=== PATIENT | male | born 1955 | race Caucasian/White ===

== ENCOUNTER → 2019-04-14 | Outpatient (CLI) | payer MEDICARE, BC ==
[~2019-04-14] MED LIST: ACYC1CAP20 PO; BACT800T5 PO; D3 H10002 PO; IMBR1CAP PO; PRAV40TA2 PO; SYNT150T PO; VENTAER INH
--- NOTE | 2019-04-14 09:15 | REP ---
LOW DOSE LUNG SCREENING CT: Low dose lung screening CT performed in the axial plane. No prior study for comparison. There are scattered interstitial fibrotic changes bilaterally. A 1 cm bulla is seen in the left lower lobe. A calcified granuloma is seen inferiorly and medially in the right lower lobe measuring 6 mm. No suspicious nodule or opacity seen bilaterally. There is an insignificant 2 mm subpleural nodular density in the right lower lobe on image 57. Atherosclerotic calcifications are noted of the thoracic aorta without aneurysm. There is no evidence of cardiomegaly or significant mediastinal contour abnormality. IMPRESSION: Lung RADS category 1, negative low dose lung screening CT. No suspicious nodule is seen. Yearly screening lung CT recommended. Electronically Signed by Freddy Monterroso MD 04/15/2019 08:08 P
== END ==
LOC: M RAD 07:20
PROVIDERS: ATTEND Internal Medicine Hematology & Oncology
DX: Z12.2 Encounter for screening for malignant neoplasm of respiratory organs (principal); Z87.891 Personal history of nicotine dependence; J84.10 Pulmonary fibrosis, unspecified; I70.0 Atherosclerosis of aorta; R91.8 Other nonspecific abnormal finding of lung field

== ENCOUNTER → 2019-09-18 | Outpatient (CLI) | payer MEDICARE, BC ==
--- NOTE | 2019-09-18 12:45 | REP ---
ULTRASOUND BILATERAL SUPRACLAVICULAR REGION: Real-time sonographic evaluation of the soft tissues of supraclavicular regions performed bilaterally. Multiple normal sized lymph nodes are seen in this region. Largest on the right measures 1.0 x 0.4 x 1.1 cm. Largest on the left measured 1.4 x 0.7 x 0.4 cm and 1.9 x 0.5 x 0.7 cm. IMPRESSION: Normal sized lymph nodes in the supraclavicular regions bilaterally. Electronically Signed by Freddy Monterroso MD 09/18/2019 05:43 P
== END ==
LOC: M RAD 09:02
PROVIDERS: ATTEND Family Medicine
DX: R59.0 Localized enlarged lymph nodes (principal); F17.210 Nicotine dependence, cigarettes, uncomplicated

== ENCOUNTER 2019-10-10 11:22 | Inpatient (IN) | payer MEDICARE, BC ==
[~2019-10-10] VITALS: Ht 165.1 cm; Wt 65.8 kg
[~2019-10-10 11:22] MED LIST changes: +AMLO10TA5 PO; +ASPI81TA85 PO; +LEVO137T2 PO; +OXYB10TA23 PO
[2019-10-10 15:00] VITALS: BP 143/67
--- NOTE | 2019-10-10 15:35 | HPEPDOC ---
General Date of Admission Oct 10, 2019 at 11:22 Date of Service: Oct 10, 2019 Chief Complaint The patient is a 64-year-old male admitted with a reason for visit of Left Upper Miguel Pneumonia. Source: Patient, Family, Old records Exam Limitations: No limitations Timing/Duration: Resolved prior to arrival Associated Symptoms: Chest Pain (Costochondritis ) History of Present Illness Mr. Shaikh is a 64 year old male transferred from [facility] with a Dx of WANDA pnueumonia. Mr. Shaikh has a PMHx which includes DMII, Bladder Ca., CLL, Hypertension, Anemia, Hypothyroidism, COPD, Dyslipidemia, Binge eating, Anorexia, Bulimia. History is obtained from both the pt and his . Pt isn't sure why he has been transferred here; he and his believe he has improved significantly and that he was going home today. 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 Pt also reported CP caused by coughing very forcefully and frequently. He has denied all symptoms of fever/chills/malaise. He is currently on 2L NC in the room; however he does not use oxygen at home. Pt was diagnosed with pneumonia on Sunday superimposed on a Hx of CLL, currently being treated with Imbruvica. Pt went to the ED in [place] due to worsening SOB, non-productive cough and trouble breathing. He was Dx with pneumonia of WANDA and treated with Zosyn, Vancomycin and Azithromycin to completion. It appears his Sx largely resolved over the week. His lactic acid had returned to normal limits and pt reported hat he felt fine. Blood cultures at [place] were negative. He reportedly spiked a fever this morning which concerned medical staff and precipitated the transfer here. Pt is has been treated for CLL with Imbruvica. His new oncologist is Dr. Kruse. One of the main side effects of this medication is fever. He and his reported that his oncologist approved him getting a dose of the medication Sunday of this week; next treatment is due Oct.17. 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 He reported being asymptomatic at the time fevers were recorded/reported. Home Medications Scheduled Acyclovir (Acyclovir) 200 Mg Capsule, 200 MG PO BID, (Reported) Amlodipine Besylate (Amlodipine Besylate) 10 Mg Tablet, 10 MG PO DAILY, (Reported) Aspirin (Aspir 81) 81 Mg Tablet.dr, 81 MG PO DAILY, (Reported) Azithromycin (Azithromycin) 500 Mg Vial.port, 500 MG IV DAILY, (Reported) RECEIVED AT [facility] Cholecalciferol (Vitamin D3) (Vitamin D3) 1,000 Unit Capsule, 1,000 UNIT PO DAILY, (Reported) Enoxaparin Sodium (Enoxaparin Sodium) 40 Mg/0.4 Ml Syringe, 40 MG SC DAILY, (Reported) RECEIVED AT [facility] Ibrutinib (Imbruvica) 140 Mg Capsule, 3 CAP PO DAILY Insulin Human Regular (Humulin R) 100 Unit/1 Ml Vial, 1 DOSE SC ACHS, (Reported) PER SLIDING SCALE, STARTED AT [facility] Levothyroxine Sodium (Levothyroxine Sodium) 137 Mcg Tablet, 137 MCG PO DAILY, (Reported) Oxybutynin Chloride (Oxybutynin Chloride ER) 10 Mg Tab.er.24, 10 MG PO DAILY, (Reported) Piperacillin Sodium/Tazobactam (Zosyn 3.375 Gram Vial) 3.375 Gm Vial, 3.375 GM IV Q6H, (Reported) RECEIVED AT [facility] Pravastatin Sodium (Pravastatin Sodium) 40 Mg Tablet, 40 MG PO DAILY, (Reported) PT TAKES IN THE MORNING, BUT WAS RECEIVING QHS AT [place] Vancomycin HCl in 5 % Dextrose (Vancomycin 1 Gram/250 ml-D5w) 1 Gm/250 Ml Plast..bag, 1 GM IV DAILY, (Reported) RECEIVED AT [facility] Scheduled PRN Acetaminophen (Acetaminophen) 500 Mg Tablet, 500 MG PO QID PRN for PAIN, (Reported) Albuterol Sulfate (Ventolin Hfa) 18 Gm Hfa.aer.ad, 2 PUFF INH Q4H PRN for SHORTNESS OF BREATH, (Reported) Allergies Coded Allergies: ciprofloxacin (Verified Allergy, Intermediate, SWELLING, 10/10/19) latex (Verified Allergy, Intermediate, RASH, 10/10/19) Past Medical History Medical History DMII Bladder Ca. CLL Hypertension Anemia Hypothyroidism COPD Dyslipidemia Binge eating Anorexia Bulimia. Surgical History Abdominal hernia repair Back surgery Colonoscopy Cystoscopy Penile implant Social History * Smoker: current smoker Alcohol: Denies Drugs: denies A-FIB/CHADSVASC A-FIB History Current/History of A-Fib/PAF?: No Current PO Anticoag Therapy: No Review of Systems Constitutional: Denies: Chills, Fever, Night Sweats Eyes: Denies: Pain ENT: Denies: Head Aches Skin: Denies: Rash Pulmonary: Reports: Cough, Pleuritic Chest Pain; Denies: Dyspnea Cardiovascular: Denies: Chest Pain, Palpitations, Orthopnea, Paroxysmal Noc. Dyspnea, Lt Headedness Gastrointestinal: Denies: Nausea, Vomiting, Abdominal Pain, Diarrhea Genitourinary: Denies: Dysuria, Retention Hematologic: Denies: Bruising Musculoskeletal: Denies: Neck Pain, Back Pain, Joint Pain, Muscle Pain, Spasms Neurological: Denies: Weakness, Numbness Psych: Reports: Mood Normal Physical Examination General Exam: Positive: Alert, Cooperative, No Acute Distress Eye Exam: Positive: PERRLA, Conjunctiva & lids normal, EOMI; Negative: Sclera icteric ENT Exam: Positive: Atraumatic, Mucous membr. moist/pink, Pharynx Normal, Tongue Midline Neck Exam: Positive: Supple; Negative: JVD, thyromegaly Chest Exam: Positive: Clear to auscultation, Normal air movement, Wheezing (mild, diffuse ), Other (CP reproduced with palpation, left chest below the nipple ) Heart Exam: Positive: Rate Normal, Regular Rhythm, Normal S1, Normal S2; Negative: Murmurs, Rubs Telemetry: Positive: No significant arrhythmia Abdomen Exam: Positive: Normal bowel sounds, Soft; Negative: Tenderness, Hepatospenomegaly Extremity Exam: Positive: Normal pulses; Negative: Clubbing, Cyanosis, Edema, Tenderness, Swelling Skin Exam: Positive: Nl turgor and temperature, Rash (Miliaria over the back ) Neuro Exam: Positive: Normal Speech, Strength at 5/5 X4 ext, Cranial Nerves 3- 12 NL Psych Exam: Positive: Mood NL Vital Signs see below Assessment/Plan Pneumonia, WANDA, persistent cough - pt is afebrile and hemodynamically stable, physical exam largely unremarkable - treated to completion with Zosyn, Azithromycin, Vancomycin at [facility] - reassess with CT chest w/o contrast - CBC, CMP, PT, Blood cultures x 2, Procalcitonin, Lactic acid, Mg - pending - Consider broad spectrum abx warranted - Currently on 2L NC; add Guaifenesin (push PO fluids) to loosen mucus - PRN and scheduled DuoNebs CLL - Currently being treated with Imbruvica (ON HOLD) - Next treatment is due Oct 17 - Further management per oputpt oncology, Dr. Hartman - Prophy Acyclovir 200mg on hold HTN - continue Amlodipine DMII - ISS with FBS achs - consistent carbs diet Hypothyroidism - Continue Levothyroxine Urinary retention - Continue Oxybutynin Dyslipidemia - Continue Pravastatin Plan / VTE VTE Prophylaxis Ordered?: Yes (Lovenox ) Attending Note Attending Note I have reviewed the documentation and assessed the patient independently. I have made necessary revisions as needed. I agree with the findings, assessment and plan stated above. - Patient was seen and examined at the bedside; is not in any respiratory distress - They are hemodynamically stable and afebrile - Patient was reported to have required supplement oxygen, however is saturating at 93% on room air currently - Auscultation with bilateral lower lobe crackles appreciated - Lab work has revealed no lactic acidosis, mild leukopenia - CT scan was completed today and compared again CT chest from 10/07/2019; currently does reveal an increase in infiltrate at left upper lobe and increase in bilateral effusions - Will start the patient on oral cefdinir and azithromycin - Will provide single dose of furosemide IV GREGG OCHOA PA-C Oct 10, 2019 15:35 MOHIT OQUENDO MD Oct 10, 2019 18:15
[2019-10-10 16:00] VITALS: BP 129/81
[2019-10-10] MEDS ORDERED: VITA100054 PO (16:14)
[2019-10-10] MEDS ORDERED: ACET-683 PO (16:14)
[2019-10-10] MEDS ORDERED: ENOX40IN3 SC (16:20)
[2019-10-10] MEDS ORDERED: ZOSY3INJ2 IV (16:30)
[2019-10-10] MEDS ORDERED: AZIT500I IV (16:30)
[2019-10-10] MEDS ORDERED: VANC1INJ IV (16:30)
[2019-10-10] MEDS ORDERED: INSURSD SC (16:30)
[2019-10-10] MEDS ORDERED: NICOTINE 21MG/24HR 1 EA TRANSDERMAL TD PRN (16:45)
[2019-10-10] MEDS ORDERED: ALBUTEROL 90 MCG/ACT 8GM HFA INHALER INH PRN (16:45)
[2019-10-10] MEDS ORDERED: GLUCAGON FOR INJ 1 MG VIAL (J1610) SC PRN (16:45)
[2019-10-10] MEDS ORDERED: GLUCOSE 4 GM CHEW TABLET PO PRN (16:45)
[2019-10-10] MEDS ORDERED: DEXTROSE 50% 50 ML SYRINGE IV PRN (16:45)
[2019-10-10] MEDS ORDERED: ACETAMINOPHEN 500 MG TAB PO PRN (16:45)
[2019-10-10 16:46] LABS: INR 1.16; PROTHROMBIN TIME 14.5 SECONDS (11.8-14.0)
--- NOTE | 2019-10-10 16:51 | REP ---
CT of the chest without IV contrast: Comparison is the chest CT dated 04/14/2019. There is a large right upper lobe infiltrate in the apicoposterior segment. There are bilateral pleural effusions. There is compression atelectasis of the lower lobes bilaterally from the pleural effusions. There are no nodules or masses. There are scattered bulla throughout the lung roque bilaterally. There is no mediastinal or axillary lymphadenopathy. In the absence of IV contrast the study is insensitive for hilar adenopathy. The unenhanced thoracic aorta is unremarkable. Cardiac size is normal. There is no pericardial effusion. The visualized upper abdominal contents are unremarkable. Impression: Large left upper lobe infiltrate in the apicoposterior segment. Bilateral pleural effusions with compression atelectasis of the adjacent lower lobe lung roque. Electronically Signed by Freddy Churchill MD 10/10/2019 04:42 P
[2019-10-10 16:54] LABS: ALBUMIN 2.1 GM/DL (3.2-5.2); BILIRUBIN,TOTAL 0.7 MG/DL (0.2-1.0); CALCIUM LEVEL 7.3 MG/DL (8.8-10.2); CREATININE FOR GFR 1.33 MG/DL (0.70-1.30); GLOMERULAR FILTRATION RATE 57.3 (>49); MAGNESIUM LEVEL 2.6 MG/DL (1.8-2.4); POTASSIUM SERUM 4.1 MEQ/L (3.5-5.1); TOTAL PROTEIN 5.4 GM/DL (6.4-8.2)
[2019-10-10] MEDS ORDERED: IPRATROPIUM 0.5MG/ALBUTEROL 2.5MG INH SOL UD 3ML (DUONEB)(J7620) NEB PRN (17:00)
[2019-10-10 17:08] LABS: HEMATOCRIT 29.7 % (42.0-52.0); HEMOGLOBIN 9.6 g/dl (13.5-17.5); MEAN CORPUSCULAR HEMOGLOBIN 34.3 pg (27.0-33.0); MEAN CORPUSCULAR HGB CONC 32.3 g/dl (32.0-36.5); MEAN CORPUSCULAR VOLUME 106.1 fl (80.0-96.0); PLATELET COUNT, AUTOMATED 190 10^3/uL (150-450); WHITE BLOOD COUNT 3.9 10^3/uL (4.0-10.0)
[2019-10-10 17:30] LABS: CK-MB VALUE MASS < 1.0 NG/ML (<3.6); CPK CREATINE PHOSPHOKINASE 135 U/L (39-308); MB/CK RELATIVE INDEX 0.74 (< OR =4); TROPONIN I < 0.02 NG/ML (< 0.10)
[2019-10-10] MEDS: HumaLOG INSULIN (NovoLOG) PER UNIT SC SCH (18:11)
[2019-10-10] MEDS ORDERED: FUROSEMIDE 20 MG/2 ML VIAL (J1940) IV ONE (18:15)
[2019-10-10 20:00] VITALS: BP 140/64
[2019-10-10] MEDS: IPRATROPIUM 0.5MG/ALBUTEROL 2.5MG INH SOL UD 3ML (DUONEB)(J7620) NEB SCH (20:06)
[2019-10-10] MEDS: CEFDINIR 300 MG CAP (OMNICEF) PO SCH (20:42)
[2019-10-10] MEDS: guaiFENesin ER 600 MG TAB PO SCH (20:42)
[2019-10-10 23:59] VITALS: BP 115/75
[2019-10-11] MEDS: IPRATROPIUM 0.5MG/ALBUTEROL 2.5MG INH SOL UD 3ML (DUONEB)(J7620) NEB SCH ×4 (01:39→19:25)
[2019-10-11 04:00] VITALS: BP 135/70
[2019-10-11 05:43] LABS: HEMATOCRIT 26.7 % (42.0-52.0); HEMOGLOBIN 8.7 g/dl (13.5-17.5); MEAN CORPUSCULAR HEMOGLOBIN 34.1 pg (27.0-33.0); MEAN CORPUSCULAR HGB CONC 32.6 g/dl (32.0-36.5); MEAN CORPUSCULAR VOLUME 104.7 fl (80.0-96.0); PLATELET COUNT, AUTOMATED 176 10^3/uL (150-450); RED BLOOD COUNT 2.55 10^6/uL (4.30-6.10); WHITE BLOOD COUNT 3.7 10^3/uL (4.0-10.0)
[2019-10-11] MEDS: LEVOTHYROXINE 137MCG TABLET (0.137MG) PO SCH (05:43)
[2019-10-11 06:01] LABS: CALCIUM LEVEL 8.3 MG/DL (8.8-10.2); CREATININE FOR GFR 1.35 MG/DL (0.70-1.30); GLOMERULAR FILTRATION RATE 56.3 (>49); MAGNESIUM LEVEL 2.8 MG/DL (1.8-2.4); POTASSIUM SERUM 4.4 MEQ/L (3.5-5.1)
[2019-10-11 06:22] LABS: LYMPHOCYTES 59 % (16-44); MONOCYTES 1 % (0-5); NEUTROPHILS 40 % (28-66)
[2019-10-11 06:24] LABS: PLATELET ESTIMATE NORMAL (NORMAL)
[2019-10-11 07:55] VITALS: BP 139/67
[2019-10-11] MEDS: HumaLOG INSULIN (NovoLOG) PER UNIT SC SCH ×3 (08:55→17:30)
[2019-10-11] MEDS: ENOXAPARIN 40 MG/0.4 ML SYRINGE (J1650) SC SCH (08:55)
[2019-10-11] MEDS: oxyBUTYnin *DITROPAN XL* 5 MG TABCR PO SCH (08:56)
[2019-10-11] MEDS: AZITHROMYCIN 250 MG TAB PO SCH (08:56)
[2019-10-11] MEDS: guaiFENesin ER 600 MG TAB PO SCH ×2 (08:57→20:49)
[2019-10-11] MEDS: CEFDINIR 300 MG CAP (OMNICEF) PO SCH (08:57)
[2019-10-11] MEDS: PRAVASTATIN 20 MG TAB PO SCH (08:57)
[2019-10-11] MEDS: amLODIPine 10 MG TAB PO SCH (08:57)
[2019-10-11] MEDS: ASPIRIN 81 MG ENTERIC TAB PO SCH (08:57)
[2019-10-11 11:01] LABS: C REACTIVE PROTEIN QUANTITATIV 25.5 MG/DL (0.00-0.30)
[2019-10-11 11:07] LABS: C REACTIVE PROTEIN QUANTITATIV 29.9 MG/DL (0.00-0.30)
--- NOTE | 2019-10-11 11:11 | REP ---
PA and lateral chest: Comparison is the chest CT of 10/10/2019. There is a large left upper lobe infiltrate, unchanged. There are bilateral pleural effusions, unchanged. Cardiac size is normal. The giovanni, mediastinum, skeletal structures are unremarkable. Electronically Signed by Freddy Churchill MD 10/11/2019 11:02 A
[2019-10-11 11:20] VITALS: BP 136/67
--- NOTE | 2019-10-11 12:40 | IPNPDOC ---
Text Note Date of Service The patient was seen on 10/11/19. NOTE Subjective: Patient is a 64-year-old male with a PMHx of Bladder CA, CLL on Immunotherapy, HTN, DM2, DLP, Anemia, Hypothyroidism, COPD, who presented to [facility] as a transfer from [facility] for WANDA pneumonia. Patient was admitted to [facility] 10/06/2019, was given ceftriaxone and azithromycin for community acquired pneumonia coverage. Patient continued to express worsening shortness of breath and was switched over to broad-spectrum antibiotics on 10/07/2019. Patient continued to experience episodes of acute shortness of breath that was attributed to excessive secretion/mucous plugging. Hospitalist service at [facility] transfer patient to [facility] on 10/10/2019 because of his persistent fevers. Patient was unaware of the transfer and thought he was going home. Review of medical record has reported that they had thought his fevers were attributed to a warm room/heater's. Upon arrival to [facility]. Patient was saturating at 90% on room air. Reported that he was feeling significantly better and denied any chest pain, palpitations or any significant shortness of breath. He did report a productive cough with greenish sputum. Patient was seen and examined at the bedside. . Currently, patient reports that his breathing is doing significantly better. Denies any chest pain or palpitations. Still reports productive cough. Denies nausea, vomiting, abdominal pain, constipation, diarrhea, or urinary discomfort. Does not express any fevers since arrival to [facility]. Objective: Vitals (See below) General: Lying in bed, no acute distress, comfortable, AAOx3 HEENT: NC, AT CVS: RRR, +S1S2 Lungs: Fair air entry b/l, no appreciable wheezing, rhonchi or rales Abdomen: Soft, ND, NT Extremities: - Edema, - Calf tenderness Assessment and plan: s/p Acute hypoxic respiratory failure - possibly 2/2 WANDA pneumonia, possibly 2/2 bilateral pleural effusions - Currently, patient reports that his breathing is doing significantly better. He saturating at 95% on room air - Auscultation still reveals bilateral faint crackles at bases - s/p Furosemide 20 mg IV x 1 dose - Will provide additional dose today - See below WANDA pneumonia in the setting of immunocompromise with immunotherapy / chemotherapy - No lactic acidosis; calcitonin is pending - Lead cultures and sputum cultures remain pending from 10/10/2019; - MRSA PCR negative - Called and discussed with [facility]; there are currently no positive cultures for blood or sputum / influenza negative / legionella + strep urine antigens negative - CT chest 10/10: Large left upper lobe infiltrate in the apicoposterior segment. Bilateral pleural effusions with compression atelectasis of the adjacent lower lobe lung roque. - Discuss with radiology who have compared imaging to CT scan from 10/07; there is an interval increase in the left upper lobe infiltrate and bilateral lower lobe effusions - Discuss with pulmonology; at this point, we will escalate antibiotic therapy to Cefepime and c/w azithromycin - Will perform serial chest x-rays - Will adjust antibiotics within next 24-48 hours COPD - no evidence of exacerbation at this time - c/w inhaled therapy as ordered CLL - Currently being treated with Imbruvica; which will remain on hold at this time - We'll have outpatient follow-up with Dr. Hartman, next treatment scheduled for 10/17/2019 - c/w prophylaxis with Acyclovir HTN - c/w Amlodipine DM2 - c/w ISS Hypothyroidism - c/w Levothyroxine Urinary retention - c/w Oxybutynin Dyslipidemia - c/w Pravastatin DVT prophylaxis - c/w Lovenox VS,Fishbone, I+O VS, Fishbone, I+O Laboratory Tests 10/10/19 16:05 10/10/19 16:47 10/11/19 05:19 Vital Signs Date Time Temp Pulse Resp B/P (MAP) Pulse Ox O2 Delivery O2 Flow Rate FiO2 10/11/19 11:20 97.6 77 18 136/67 (90) 95 Room Air 10/10/19 23:59 I&O- Last 24 Hours up to 6 AM 10/11/19 06:00 Intake Total 720 ml Output Total 2050 ml Balance -1330 ml MOHIT OQUENDO MD Oct 11, 2019 12:40
--- NOTE | 2019-10-11 14:12 | ECHO ---
DATE OF SERVICE: 10/11/2019 REFERRING PROVIDER: Dr. Lauren Bruce PATIENT LOCATION: Room 3217 REASON FOR THIS STUDY: Shortness of breath. 2D MEASUREMENTS: IVS: 1.0 cm LV: 4.5 cm LVPW: 1.0 cm LA: 3.7 cm Aorta: 2.7 cm IVC: 1.9 cm DOPPLER MEASUREMENTS: Peak velocity across the aortic valve: 1.7 m/s Peak velocity across the LVOT: 1.1 m/s Peak gradient across the aortic valve: 11 mmHg Mean gradient across the aortic valve: 6 mmHg Mitral E: 1.1 Mitral A: 0.9 with a ratio of 1.2 2D COMMENTS: 1. Normal left ventricular size, wall thickness, and normal global left ventricular systolic function. The estimated ventricular systolic ejection fraction is 65%. 2. Normal left atrium. Normal right atrium and right ventricle. 3. The atrial septum appeared to be normal without evidence of defect or shunt. 4. Normal aortic root. 5. No pericardial effusion seen. 6. Mildly calcified aortic valve with normal leaflet excursion. No mitral valve, tricuspid valve. The pulmonic valve and proximal pulmonary artery branches were not well visualized. 7. The inferior vena cava was normal in size, central venous pressure is most likely normal. Doppler, it detects trace to mild mitral regurgitation and trace tricuspid regurgitation. The pulmonary artery systolic pressure is most likely normal. Assessment of the left ventricular diastolic function appeared to be normal. IMPRESSION: 1. Normal global left ventricular systolic and diastolic function. 2. Aortic valve sclerosis without any stenosis or aortic radiation. 3. Trace to mild mitral regurgitation. 4. Trace tricuspid regurgitation. 5. The global longitudinal strain was reported to be 14%, may be artifactual.
[2019-10-11 15:37] VITALS: BP 138/67
[2019-10-11] MEDS: CEFEPIME HCL 1 GM in D5W MINI-BAG PLUS 50 ML IV SCH (18:06)
[2019-10-11] MEDS: ACYCLOVIR 200 MG CAPSULE PO SCH (20:49)
[2019-10-12] VITALS: BP 145/70
[2019-10-12] MEDS: IPRATROPIUM 0.5MG/ALBUTEROL 2.5MG INH SOL UD 3ML (DUONEB)(J7620) NEB SCH ×4 (01:24→20:24)
[2019-10-12 04:00] VITALS: BP 148/66
[2019-10-12 05:22] LABS: HEMATOCRIT 26.1 % (42.0-52.0); HEMOGLOBIN 8.5 g/dl (13.5-17.5); MEAN CORPUSCULAR HEMOGLOBIN 34.1 pg (27.0-33.0); MEAN CORPUSCULAR HGB CONC 32.6 g/dl (32.0-36.5); MEAN CORPUSCULAR VOLUME 104.8 fl (80.0-96.0); PLATELET COUNT, AUTOMATED 182 10^3/uL (150-450); RED BLOOD COUNT 2.49 10^6/uL (4.30-6.10); WHITE BLOOD COUNT 3.8 10^3/uL (4.0-10.0)
[2019-10-12 05:32] LABS: HYPOCHROMASIA 1+; LYMPHOCYTES 64 % (16-44); MONOCYTES 2 % (0-5); NEUTROPHILS 34 % (28-66)
[2019-10-12 05:33] LABS: PLATELET ESTIMATE NORMAL (NORMAL); POIKILOCYTOSIS 1+
[2019-10-12 05:43] LABS: CALCIUM LEVEL 7.8 MG/DL (8.8-10.2); CREATININE FOR GFR 1.35 MG/DL (0.70-1.30); GLOMERULAR FILTRATION RATE 56.3 (>49); MAGNESIUM LEVEL 2.6 MG/DL (1.8-2.4); POTASSIUM SERUM 3.5 MEQ/L (3.5-5.1)
[2019-10-12] MEDS: CEFEPIME HCL 1 GM in D5W MINI-BAG PLUS 50 ML IV SCH (05:43)
[2019-10-12] MEDS: LEVOTHYROXINE 137MCG TABLET (0.137MG) PO SCH (05:44)
[2019-10-12] MEDS: HumaLOG INSULIN (NovoLOG) PER UNIT SC SCH ×3 (07:30→17:15)
--- NOTE | 2019-10-12 07:50 | REP ---
PA and lateral chest: Comparison is 10/11/2009. The left left upper lobe infiltrate and bilateral pleural effusions are unchanged. Cardiac size is normal. The giovanni, mediastinum, skeletal structures are unremarkable. Impression: There is no interval change. Electronically Signed by Freddy Churchill MD 10/12/2019 07:42 A
[2019-10-12 07:57] LABS: C REACTIVE PROTEIN QUANTITATIV 11.5 MG/DL (0.00-0.30)
[2019-10-12 08:00] VITALS: BP 144/65
[2019-10-12] MEDS ORDERED: FUROSEMIDE 20 MG/2 ML VIAL (J1940) IV ONE (08:00)
[2019-10-12] MEDS ORDERED: diphenhydrAMINE CREAM 30GM TOP PRN (08:15)
[2019-10-12] MEDS: oxyBUTYnin *DITROPAN XL* 5 MG TABCR PO SCH (09:19)
[2019-10-12] MEDS: PRAVASTATIN 20 MG TAB PO SCH (09:19)
[2019-10-12] MEDS: ACYCLOVIR 200 MG CAPSULE PO SCH ×2 (09:19→22:24)
[2019-10-12] MEDS: guaiFENesin ER 600 MG TAB PO SCH ×2 (09:19→22:24)
[2019-10-12] MEDS: ASPIRIN 81 MG ENTERIC TAB PO SCH (09:19)
[2019-10-12] MEDS: AZITHROMYCIN 250 MG TAB PO SCH (09:19)
[2019-10-12] MEDS: amLODIPine 10 MG TAB PO SCH (09:20)
[2019-10-12] MEDS: ENOXAPARIN 40 MG/0.4 ML SYRINGE (J1650) SC SCH (09:20)
--- NOTE | 2019-10-12 10:29 | IPNPDOC ---
Text Note Date of Service The patient was seen on 10/12/19. NOTE Subjective: Patient is a 64-year-old male with a PMHx of Bladder CA, CLL on Immunotherapy, HTN, DM2, DLP, Anemia, Hypothyroidism, COPD, who presented to [facility] as a transfer from [facility] for WANDA pneumonia. Patient was admitted to [facility] 10/06/2019, was given ceftriaxone and azithromycin for community acquired pneumonia coverage. Patient continued to express worsening shortness of breath and was switched over to broad-spectrum antibiotics on 10/07/2019. Patient continued to experience episodes of acute shortness of breath that was attributed to excessive secretion/mucous plugging. Hospitalist service at [facility] transfer patient to [facility] on 10/10/2019 because of his persistent fevers. Patient was unaware of the transfer and thought he was going home. Review of medical record has reported that they had thought his fevers were attributed to a warm room/heater's. Upon arrival to [facility]. Patient was saturating at 90% on room air. Reported that he was feeling significantly better and denied any chest pain, palpitations or any significant shortness of breath. He did report a productive cough with greenish sputum. Patient was seen and examined at the bedside. Patient reports that his breathing is doing significantly better. He notes that his productive sputum production has subsided. . He denies any chest pain or palpitations. Denies nausea, vomiting, abdominal pain, diarrhea or urinary. Patient has reported that he's been experiencing a rash of his upper extremities on both sides with some involvement of his thighs. He reports that this rash is very itchy. Objective: Vitals (See below) General: Lying in bed, no acute distress, comfortable, AAOx3 HEENT: NC, AT CVS: RRR, +S1S2 Lungs: Auscultation reveals no evidence of rhonchi, wheezing or crackles. Air entry appears to be fair bilaterally Abdomen: Remains soft, without any distention or tenderness Extremities: Lower extremities are free of any edema, - Calf tenderness Assessment and plan: s/p Acute hypoxic respiratory failure - possibly 2/2 WANDA pneumonia, possibly 2/2 bilateral pleural effusions - Patient reports that he's been ambulating without any difficulty; denies any significant shortness of breath, and notes that his productive cough has improved - Auscultation is without any significant crackles at bases - s/p Furosemide 20 mg IV x 1 dose on 10/10/2019; will provide additional dose today - Will provide additional dose today - See below WANDA pneumonia in the setting of immunocompromise with immunotherapy / chemotherapy - No lactic acidosis; procalcitonin of 0.66 - CRPs have been trending down - Blood cultures and sputum cultures 10/10/2019: Negative - MRSA PCR negative - Called and discussed with [facility]; there are currently no positive cultures for blood or sputum / influenza negative / legionella + strep urine antigens negative - CT chest 10/10: Large left upper lobe infiltrate in the apicoposterior segment. Bilateral pleural effusions with compression atelectasis of the adjacent lower lobe lung roque. - CXR completed today reveals no significant interval change - Will adjust antibiotics to Augmentin + Azithromycin; will DC Cefepime Neutropenia - No evidence of fevers / remains hemodynamically stable - ANC of 1292 - c/w treatment from above COPD - no evidence of exacerbation at this time - c/w inhaled therapy as ordered CLL - Currently being treated with Imbruvica; which will remain on hold at this time - We'll have outpatient follow-up with Dr. Hartman, next treatment scheduled for 10/17/2019 - c/w prophylaxis with Acyclovir HTN - c/w Amlodipine DM2 - c/w ISS Hypothyroidism - c/w Levothyroxine Urinary retention - c/w Oxybutynin Dyslipidemia - c/w Pravastatin DVT prophylaxis - c/w Lovenox VS,Fishbone, I+O VS, Fishbone, I+O Laboratory Tests 10/12/19 05:02 Vital Signs Date Time Temp Pulse Resp B/P (MAP) Pulse Ox O2 Delivery O2 Flow Rate FiO2 10/12/19 09:20 79 144/65 10/12/19 08:00 98.4 22 89 Room Air 10/10/19 23:59 I&O- Last 24 Hours up to 6 AM 10/12/19 06:00 Intake Total 1490 ml Output Total 1825 ml Balance -335 ml MOHIT OQUENDO MD Oct 12, 2019 10:28
[2019-10-12] MEDS ORDERED: VANICREAM MOISTURIZING SKIN CREAM 113GM TUBE TOP PRN ×2 (10:30→10:45)
[2019-10-12] MEDS: AUGMENTIN 875 MG TAB PO SCH ×2 (11:27→22:24)
[2019-10-12 14:00] VITALS: BP 125/68
[2019-10-12 22:00] VITALS: BP 121/65
[2019-10-13] MEDS: IPRATROPIUM 0.5MG/ALBUTEROL 2.5MG INH SOL UD 3ML (DUONEB)(J7620) NEB SCH ×2 (02:34→08:21)
[2019-10-13 06:00] VITALS: BP 124/64
[2019-10-13] MEDS: LEVOTHYROXINE 137MCG TABLET (0.137MG) PO SCH (06:21)
[2019-10-13 06:27] LABS: BASO % 0.3 % (0.0-1.0); EOS % 0.7 % (0.0-3.0); HEMATOCRIT 28.6 % (42.0-52.0); HEMOGLOBIN 9.2 g/dl (13.5-17.5); LYMPH # 1.7 10^3/uL (1.5-5.0); LYMPH % 57.7 % (24.0-44.0); MEAN CORPUSCULAR HEMOGLOBIN 34.5 pg (27.0-33.0); MEAN CORPUSCULAR HGB CONC 32.2 g/dl (32.0-36.5); MEAN CORPUSCULAR VOLUME 107.1 fl (80.0-96.0); MONO # 0.1 10^3/uL (0.0-0.8); NEUTROPHILS # 1.1 10^3/uL (1.5-8.5); PLATELET COUNT, AUTOMATED 175 10^3/uL (150-450); RED BLOOD COUNT 2.67 10^6/uL (4.30-6.10); WHITE BLOOD COUNT 2.9 10^3/uL (4.0-10.0)
[2019-10-13 06:56] LABS: C REACTIVE PROTEIN QUANTITATIV 11.2 MG/DL (0.00-0.30); CALCIUM LEVEL 7.7 MG/DL (8.8-10.2); CREATININE FOR GFR 1.34 MG/DL (0.70-1.30); GLOMERULAR FILTRATION RATE 56.8 (>49); MAGNESIUM LEVEL 2.4 MG/DL (1.8-2.4); POTASSIUM SERUM 3.9 MEQ/L (3.5-5.1)
[2019-10-13] MEDS: HumaLOG INSULIN (NovoLOG) PER UNIT SC SCH (07:26)
--- NOTE | 2019-10-13 08:59 | REP ---
PA and lateral chest: Comparisons are 10/06/2019, 10/09/2019, 10/11/2019. The large left upper lobe infiltrate has decreased from 10/06/2019 and 10/09/2019. The bilateral pleural effusions have not significantly changed. Cardiac size is normal. The giovanni, mediastinum, skeletal structures are unremarkable. Electronically Signed by Freddy Churchill MD 10/13/2019 08:50 A
[2019-10-13] MEDS: ENOXAPARIN 40 MG/0.4 ML SYRINGE (J1650) SC SCH ×2 (09:00→09:07)
[2019-10-13] MEDS: PRAVASTATIN 20 MG TAB PO SCH (09:06)
[2019-10-13] MEDS: oxyBUTYnin *DITROPAN XL* 5 MG TABCR PO SCH (09:06)
[2019-10-13 09:07] VITALS: BP 124/64
[2019-10-13] MEDS: amLODIPine 10 MG TAB PO SCH (09:07)
[2019-10-13] MEDS: AZITHROMYCIN 250 MG TAB PO SCH (09:07)
[2019-10-13] MEDS: ACYCLOVIR 200 MG CAPSULE PO SCH (09:07)
[2019-10-13] MEDS: ASPIRIN 81 MG ENTERIC TAB PO SCH (09:07)
[2019-10-13] MEDS: AUGMENTIN 875 MG TAB PO SCH (09:07)
[2019-10-13] MEDS: guaiFENesin ER 600 MG TAB PO SCH (09:07)
[2019-10-13] MEDS ORDERED: AUGM875T28 PO ×2 (10:11→12:30)
--- NOTE | 2019-10-13 16:15 | DS.PDOC ---
Discharge Summary General Date of Admission Oct 10, 2019 at 11:22 Date of Discharge 10/13/2019 Discharge Summary PROCEDURES PERFORMED DURING STAY: [None]. ADMITTING DIAGNOSES: 1. Pneumonia, left upper lobe 2. CLL 3. Hypertension 4. DMII 5. Hypothyroidism 6. Urinary Retention 7. Dyslipidemia DISCHARGE DIAGNOSES: 1. Acute hypoxic respiratory failure 2. Pneumonia, left upper lobe 3. Neutropenia 4. COPD 5. CLL 6. Hypertension 7. DMII 8. Hypothyroidism 9. Urinary Retention 10. Dyslipidemia COMPLICATIONS/CHIEF COMPLAINT: Left Upper Miguel Pneumonia. HISTORY OF PRESENT ILLNESS: "Mr. Shaikh is a 64 year old male transferred from [facility] with a Dx of WANDA pnueumonia. Mr. Shaikh has a PMHx which includes DMII, Bladder Ca., CLL, Hypertension, Anemia, Hypothyroidism, COPD, Dyslipidemia, Binge eating, Anorexia, Bulimia. History is obtained from both the pt and his . Pt isn't sure why he has been transferred here; he and his believe he has improved significantly and that he was going home today. He did report a history of fevers edge molder, while in hospital, that reportedly resolved within 30mins. Pt also reported CP caused by coughing very forcefully and frequently. He has denied all symptoms of fever/chills/malaise. He is currently on 2L NC in the room; however he does not use oxygen at home. Pt was diagnosed with pneumonia on Sunday superimposed on a Hx of CLL, currently being treated with Imbruvica. Pt went to the ED in [place] due to worsening SOB, non-productive cough and trouble breathing. He was Dx with pneumonia of WANDA and treated with Zosyn, Vancomycin and Azithromycin to completion. It appears his Sx largely resolved over the week. His lactic acid had returned to normal limits and pt reported hat he felt fine. Blood cultures at [place] were negative. He reportedly spiked a fever this morning which concerned medical staff and precipitated the transfer here. Pt is has been treated for CLL with Imbruvica. His new oncologist is Dr. Kruse. One of the main side effects of this medication is fever. He and his reported that his oncologist approved him getting a dose of the medication Sunday of this week; next treatment is due Oct.17. I will need to review the medical records again to verify this and I am unsure if he has edge molder fevers since being on this medication. He reported being asymptomatic at the time fevers were recorded/reported." HOSPITAL COURSE: Pt was admitted per the above. CT-Chest on admission showed a large WANDA infiltrate. He was started on Cefepime inpatient. Blood cultures and sputum cultures (10/10) - negative, no lactic acidosis. procalcitonin was WNL; based on the patient labs, the pt being hemodynamically stable, and on RA, he was subsequently placed on Augmentin and Azithromycin. Serial CXRs largely unchanged until 10/13/19 with some mild improvement in the WANDA infiltrate. DISCHARGE MEDICATIONS: Please see below. ALLERGIES: Please see below. PHYSICAL EXAMINATION ON DISCHARGE: VITAL SIGNS: Please see below. General: No acute distress, Alert Eyes: Normal sclera, EOMI, DIAN HENT: Atraumatic, neck supple, moist mucous membranes Cardiovascular: Normal rate, normal rhythm. No murmurs appreciated. Pulmonary: Clear to auscultation b/l, no wheezing GI: Soft, nontender, nondistended Skin: Warm and dry Neuro: CN grossly intact. No focal deficits. Strengths equal b/l. Psych: oriented x 3 LABORATORY DATA: Please see below. IMAGING: Chest, 2 view PA, Lat PA and lateral chest: Comparisons are 10/06/2019, 10/09/2019, 10/11/2019. The large left upper lobe infiltrate has decreased from 10/06/2019 and 10/09/2019. The bilateral pleural effusions have not significantly changed. Cardiac size is normal. The giovanni, mediastinum, skeletal structures are unremarkable. Chest, 2 view PA, Lat PA and lateral chest: Comparison is 10/11/2009. The left left upper lobe infiltrate and bilateral pleural effusions are unchanged. Cardiac size is normal. The giovanni, mediastinum, skeletal structures are unremarkable. Impression: There is no interval change. Chest, 2 view PA, Lat PA and lateral chest: Comparison is the chest CT of 10/10/2019. There is a large left upper lobe infiltrate, unchanged. There are bilateral pleural effusions, unchanged. Cardiac size is normal. The giovanni, mediastinum, skeletal structures are unremarkable. CT Chest without contrast Impression: Large left upper lobe infiltrate in the apicoposterior segment. Bilateral pleural effusions with compression atelectasis of the adjacent lower lobe lung roque. ACTIVITY: [As tolerated]. DIET: [As tolerated]. DISCHARGE PLAN: Discharge home with Augmentin x 10 day course. Follow-up with Dr. Hartman (oncology) and Dr. Bruce (PCP) DISPOSITION: 01 Home, Self-Care. DISCHARGE INSTRUCTIONS: 1. Discharge home with Augmentin x 10 day course. 2. Follow-up with Dr. Hartman (oncology) and Dr. Bruce (PCP) ITEMS TO FOLLOWUP ON ON OUTPATIENT: 1. See above DISCHARGE CONDITION: [Stable]. TIME SPENT ON DISCHARGE: 32 minutes Vital Signs/I&Os Vital Signs Date Time Temp Pulse Resp B/P (MAP) Pulse Ox O2 Delivery O2 Flow Rate FiO2 10/13/19 09:07 83 124/64 10/13/19 06:00 98.3 18 92 Room Air 10/10/19 23:59 I&O- Last 24 Hours up to 6 AM 10/13/19 06:00 Intake Total 1740 ml Output Total 2325 ml Balance -585 ml Laboratory Data Labs 24H Laboratory Tests 2 10/12/19 17:03: Bedside Glucose (Misc Panel) 93 10/13/19 06:15: Immature Granulocyte % (Auto) 0.3, Neutrophils (%) (Auto) 39.0, Lymphocytes (%) (Auto) 57.7H, Monocytes (%) (Auto) 2.0, Eosinophils (%) (Auto) 0.7, Basophils (%) (Auto) 0.3, Neutrophils # (Auto) 1.1L, Lymphocytes # (Auto) 1.7, Monocytes # (Auto) 0.1, Eosinophils # (Auto) 0.0, Basophils # (Auto) 0.0, Nucleated Red Blood Cells % (auto) 0.0, Anion Gap 7L, Glomerular Filtration Rate 56.8, Calcium Level 7.7L, Magnesium Level 2.4, C-Reactive Protein, Quantitative 11.20H CBC/BMP Laboratory Tests 10/13/19 06:15 FSBS Laboratory Tests Test 10/12/19 17:03 Range/Units Bedside Glucose (Misc Panel) 93 80-115 MG/DL Microbiology Microbiology 10/10/19 Blood Culture - Preliminary, Resulted No Growth after 48 hours. All Specime... 10/10/19 Blood Culture - Preliminary, Resulted No Growth after 48 hours. All Specime... 10/10/19 Gram Stain - Final, Complete 10/10/19 Sputum Culture - Final, Complete 10/10/19 Respiratory Virus Panel (PCR) ([facility]) - Final, Complete Discharge Medications Scheduled Acyclovir (Acyclovir) 200 Mg Capsule, 200 MG PO BID, (Reported) Amlodipine Besylate (Amlodipine Besylate) 10 Mg Tablet, 10 MG PO DAILY, (Reported) Amoxicillin/Potassium Clav (Augmentin 875-125 Tablet) 1 Each Tablet, 1 TAB PO BID Aspirin (Aspir 81) 81 Mg Tablet.dr, 81 MG PO DAILY, (Reported) Cholecalciferol (Vitamin D3) (Vitamin D3) 1,000 Unit Capsule, 1,000 UNIT PO DAILY, (Reported) Ibrutinib (Imbruvica) 140 Mg Capsule, 3 CAP PO DAILY Levothyroxine Sodium (Levothyroxine Sodium) 137 Mcg Tablet, 137 MCG PO DAILY, (Reported) Oxybutynin Chloride (Oxybutynin Chloride ER) 10 Mg Tab.er.24, 10 MG PO DAILY, (Reported) Pravastatin Sodium (Pravastatin Sodium) 40 Mg Tablet, 40 MG PO DAILY, (Reported) PT TAKES IN THE MORNING, BUT WAS RECEIVING QHS AT RESERVE Scheduled PRN Acetaminophen (Acetaminophen) 500 Mg Tablet, 500 MG PO QID PRN for PAIN, (Reported) Albuterol Sulfate (Ventolin Hfa) 18 Gm Hfa.aer.ad, 2 PUFF INH Q4H PRN for SHORT NESS OF BREATH, (Reported) Allergies Coded Allergies: ciprofloxacin (Verified Allergy, Intermediate, SWELLING, 10/10/19) latex (Verified Allergy, Intermediate, RASH, 10/10/19) Attending Note Attending Note I have reviewed the documentation and assessed the patient independently. I have made necessary revisions as needed. I agree with the findings, assessment and plan stated above. - Time spent discharge 35 minutes - Clinically patient had improved significantly from point of arrival - Saturating well on room air and has remained hemodynamically stable/afebrile - CRPs continue to trend down - Imaging remained stable - Will have outpatient follow-up with Dr. Konstantin Bruce and Dr. Hartman within the next 7 days - Remain compliant with treatment plan and medications; c/w Augmentin + Azithromycin - Return to the ER if you experience any problems GREGG OCHOA PA-C Oct 13, 2019 16:15 MOHIT BRUCE MD Oct 13, 2019 16:44
== END 2019-10-13 12:20 | disposition home or self-care (01) | DRG 194 ==
LOC: M ED INP 11:22 → M PCU 11:25 → M MS5PR 10-12 14:51
PROVIDERS: ADMIT Internal Medicine; ATTEND Internal Medicine
DX: J18.9 Pneumonia, unspecified organism (principal); C91.90 Lymphoid leukemia, unspecified not having achieved remission; F50.2 Bulimia nervosa; E11.9 Type 2 diabetes mellitus without complications; I10 Essential (primary) hypertension; D64.9 Anemia, unspecified; E03.9 Hypothyroidism, unspecified; D70.9 Neutropenia, unspecified; R21 Rash and other nonspecific skin eruption; R33.9 Retention of urine, unspecified; F17.200 Nicotine dependence, unspecified, uncomplicated; J44.9 Chronic obstructive pulmonary disease, unspecified; E78.5 Hyperlipidemia, unspecified; Z79.82 Long term (current) use of aspirin; Z79.899 Other long term (current) drug therapy; Z88.1 Allergy status to other antibiotic agents; Z91.040 Latex allergy status; Z85.51 Personal history of malignant neoplasm of bladder

== ENCOUNTER 2020-03-04 10:34 | Inpatient (IN) | payer MEDICARE, BC ==
[~2020-03-04] VITALS: Ht 167.6 cm; Wt 67.6 kg
[2020-03-04] MEDS: NICOTINE 14 MG/24 HR TRANSDERMAL TD SCH (09:00)
[~2020-03-04 10:34] MED LIST changes: +ACET-683 PO; -AMLO10TA5 PO; +AMLO1TAB25 PO; -ASPI81TA85 PO; +ASPI81TA86 PO; +AUGM875T28 PO; +AZIT500I IV; +ENOX40IN3 SC; +INSURSD SC; +VANC1PLA7 IV; +VITA100054 PO; +ZOSY3INJ2 IV
[2020-03-04 13:10] VITALS: O2SAT 93
[2020-03-04 13:15] VITALS: BP 137/64
[2020-03-04 13:21] LABS: ABG BASE EXCESS -5.1 (-2.0-2.0); ABG HCO3 17.3 MEQ/L (22.0-26.0); ABG O2 SATURATION 91.6 % (95.0-99.0); ABG PARTIAL PRESSURE CO2 23.4 mmHg (35.0-45.0); ABG PARTIAL PRESSURE O2 61.1 mmHg (75.0-100.0); ABG STANDARD HCO3 20.2 MEQ/L (22.0-26.0); ABG pH (ARTERIAL) 7.487 UNITS (7.350-7.450)
[2020-03-04] MEDS ORDERED: GLUCAGON INJ 1MG VIAL SC PRN (13:30)
[2020-03-04] MEDS ORDERED: GLUCOSE 4GM CHEW TABLET PO PRN (13:30)
[2020-03-04] MEDS ORDERED: DEXTROSE 50% 50 ML SYRINGE IV PRN (13:30)
[2020-03-04 13:51] LABS: HEMATOCRIT 23.2 % (42.0-52.0); HEMOGLOBIN 7.9 g/dl (13.5-17.5); MEAN CORPUSCULAR HEMOGLOBIN 34.5 pg (27.0-33.0); MEAN CORPUSCULAR HGB CONC 34.1 g/dl (32.0-36.5); MEAN CORPUSCULAR VOLUME 101.3 fl (80.0-96.0); PLATELET COUNT, AUTOMATED 103 10^3/uL (150-450); RED BLOOD COUNT 2.29 10^6/uL (4.30-6.10); WHITE BLOOD COUNT 5.1 10^3/uL (4.0-10.0)
[2020-03-04 13:58] LABS: ANISOCYTOSIS 1+; LYMPHOCYTES 95 % (16-44); NEUTROPHILS 5 % (28-66); PLATELET ESTIMATE DECREASED (NORMAL); POIKILOCYTOSIS 1+; SMUDGE CELLS 1+
[2020-03-04] MEDS ORDERED: PIPERACILLIN/TAZOBACTAM SOD 4.5 GM in D5W MINI-BAG PLUS 50 ML IV SCH (14:00)
[2020-03-04] MEDS ORDERED: LOVE1INJ SC (14:01)
[2020-03-04] MEDS ORDERED: ACET1TAB55 PO (14:01)
[2020-03-04] MEDS ORDERED: D31000TA2 PO (14:01)
[2020-03-04] MEDS ORDERED: OXYB5TAB10 PO (14:01)
[2020-03-04] MEDS ORDERED: PANT40TA29 PO (14:01)
[2020-03-04] MEDS ORDERED: ATOR40TA75 PO (14:01)
[2020-03-04] MEDS ORDERED: IPRA0.00 NEB (14:01)
[2020-03-04] MEDS ORDERED: GUAI5EL PO (14:03)
[2020-03-04 14:07] LABS: INR 1.25; PROTHROMBIN TIME 15.4 SECONDS (11.8-14.0)
[2020-03-04 14:08] LABS: PARTIAL THROMBOPLASTIN TIME 36.8 SECONDS (25.0-38.4)
[2020-03-04 14:13] LABS: FIBRINOGEN 1393 MG/DL (221-452)
[2020-03-04] MEDS ORDERED: ALBUTEROL 90 MCG/ACT 8GM HFA INHALER INH PRN (14:15)
[2020-03-04] MEDS: AZITHROMYCIN INJ 500 MG, VIAL MATE ADAPTER 1 EACH in D5W 250 ML IV SCH (14:23)
[2020-03-04] MEDS ORDERED: methylPREDNISolone 125MG 2ML VIAL IV ONE (14:30)
--- NOTE | 2020-03-04 14:32 | REP ---
PORTABLE CHEST X-RAY: Single view. HISTORY: Hypoxia. COMPARISON CHEST X-RAY: October 13, 2019. FINDINGS: There is a large dense area of consolidation in the left lower lobe associated with small left pleural effusion. Findings consistent with pneumonia. Right lung is clear. The lungs overall appear somewhat hyperinflated. Heart is not enlarged. IMPRESSION: Large dense infiltrate left lower lobe with air bronchograms and associated with a small left pleural effusion. Findings consistent with pneumonia. Electronically Signed by Blaise Niño MD 03/04/2020 02:38 P
[2020-03-04] MEDS ORDERED: LEVALBUTEROL 1.25 MG/0.5 ML CONCENTRATE NEB INH PRN (14:45)
[2020-03-04] MEDS ORDERED: IPRATROPIUM 0.02% SOLN 0.5MG 2.5ML NEB INH PRN (14:45)
[2020-03-04 15:06] LABS: D-DIMER QUANT > 4000 ng/ml (<500)
[2020-03-04] MEDS: IPRATROPIUM 0.02% SOLN 0.5MG 2.5ML NEB INH SCH ×2 (15:37→19:33)
[2020-03-04] MEDS: LEVALBUTEROL 1.25 MG/0.5 ML CONCENTRATE NEB INH SCH ×2 (15:38→19:32)
[2020-03-04] MEDS ORDERED: ALBUTEROL 90 MCG/ACT 8GM HFA INHALER INH SCH (16:00)
[2020-03-04 16:04] LABS: ALBUMIN 1.7 GM/DL (3.2-5.2); ALT/SGPT 21 U/L (12-78); BILIRUBIN,TOTAL 0.7 MG/DL (0.2-1.0); BLOOD UREA NITROGEN 27 MG/DL (7-18); CALCIUM LEVEL 6.8 MG/DL (8.8-10.2); CARBON DIOXIDE LEVEL 19 MEQ/L (21-32); CHLORIDE LEVEL 112 MEQ/L (98-107); CK-MB VALUE MASS 2.5 NG/ML (<3.6); CPK CREATINE PHOSPHOKINASE 439 U/L (39-308); CREATININE FOR GFR 1.45 MG/DL (0.70-1.30); FERRITIN 690 NG/ML (26-388); GLOMERULAR FILTRATION RATE 51.8 (>49); GLUCOSE, FASTING 125 MG/DL (70-100); IMMUNOGLOBULIN A 41.5 MG/DL (70-400); IMMUNOGLOBULIN G 258 MG/DL (681-1648); IMMUNOGLOBULIN M 6.4 MG/DL (40-230); LDH LACTATE DEHYDROGENASE 287 U/L (87-241); MB/CK RELATIVE INDEX 0.57 (< OR =4); NT-PRO BNP 1645 PG/ML (<125); POTASSIUM SERUM 3.6 MEQ/L (3.5-5.1); SODIUM LEVEL 137 MEQ/L (136-145); TOTAL PROTEIN 4.8 GM/DL (6.4-8.2); TRIGLYCERIDES LEVEL 84 MG/DL (<150); TROPONIN I 0.14 NG/ML (< 0.10)
[2020-03-04] MEDS: ACETAMINOPHEN 500 MG TAB PO PRN (16:12)
[2020-03-04 17:00] VITALS: BP 132/59
[2020-03-04] MEDS ORDERED: VANCOMYCIN HCL 750 MG, VIAL MATE ADAPTER 1 EACH in D5W 250 ML IV ONE (17:00)
[2020-03-04] MEDS: HumaLOG INSULIN (NovoLOG) PER UNIT SC SCH ×2 (17:24→21:00)
[2020-03-04] MEDS ORDERED: VANCOMYCIN HCL 500 MG in D5W MINI-BAG PLUS 100 ML IV ONE (18:00)
[2020-03-04 20:00] VITALS: BP 113/56
--- NOTE | 2020-03-04 20:42 | PHACANCOPD ---
PHARMACY VANCOMYCIN DOSING Pt Demographics Demographics Patient Age:64 , Weight:68.000 , Gender: male Adjusted Body Weight Events Past 24 Hours Events Past 24 Hours: NO: Dialysis, Diuretic Therapy, Change in CrCl, Fever, Elevation in WBC, Pending Diagnostics, Pending Procedures, Other Vancomycin Vancomycin indication: SEPSIS Vancomycin Target Ranges: 15-20 mcg/ml Vancomycin Load Y/N: Yes Load Dose Date Time Vancomycin Load Dose: 1250MG Date: 03/04/20 Time: 1700 Vancomycin Dose Date: 03/04/20. Current Vancomycin Dose: 1G IV Q12H Intermittent Dosing?: No Labs Labs Laboratory Tests 03/04/20 13:36 Micro Microbiology 03/04/20 Respiratory Virus Panel (PCR) ([facility]) - Final, Complete 03/04/20 Blood Culture, Received Pending 03/04/20 Gram Stain, Received Pending 03/04/20 Sputum Culture, Received Pending 03/04/20 Blood Culture, Received Pending Creatinine Clearance Date:03/04/20. Creatinine Clearance: CALCULATED TO BE 45 Assessment and Plan Maintaining Current Dose?: Yes Reason for dose change: No Dose Change Pharmacist Note Pharmacist Note Date: 03/04/20. Pharmacist note: Direct admit from [facility] re ceiving vancomycin for sepsis 1g q24h last dose yesterday at 1300. Trough today at 1415 resulted only 2.6. CrCl today is 45. Patient also receiving zosyn. Due to extremely low trough with q24 dosing I reloaded the patient with 1250mg IV vancomycin at 1700 followed by 1G q12 starting at 0700. I scheduled a trough tomorrow before the 3rd dose to make sure that the patient is not accumulating. I will continue to monitor this patient and adjust dose as needed. SHAMEKA LARIOS PHARMACY Mar 04, 2020 20:42
[2020-03-04] MEDS: methylPREDNISolone 125MG 2ML VIAL IV SCH (20:57)
[2020-03-04] MEDS: D5W/0.9% SODIUM CHLORIDE 1,000 ML IV SCH (20:58)
[2020-03-04] MEDS: HEPARIN SOD (PORCINE) 5000UNITS/ML 1ML VIAL/SYRINGE SQ SCH (20:58)
[2020-03-04] MEDS ORDERED: oxyBUTYnin 5 MG TAB PO ONE (21:00)
[2020-03-04] MEDS: PIPERACILLIN/TAZOBACTAM SOD 4.5 GM in D5W MINI-BAG PLUS 50 ML IV SCH (21:21)
[2020-03-04 22:00] VITALS: BP 122/58
--- NOTE | 2020-03-04 22:46 | HPE ---
DATE OF ADMISSION: 03/04/2020 PRIMARY CARE PHYSICIAN: Espinoza Bruce MD CHIEF COMPLAINT: Shortness of breath, fever and cough. HISTORY OF PRESENT ILLNESS: 64-year-old male with history of chronic lymphocytic leukemia (CLL) on Imbruvica, seen at the [facility], followed by Dr. 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 According to the , the patient has been having increase in physical exercise, helping his son from [place], who was here two weeks ago, got settled in his how. He had noted worsening symptoms about two days prior to presenting to [facility] with cough productive of clear sputum, fever of 99, was seen by Dr. Espinoza Bruce with a temperature of 102 in [place], was subsequently sent to the emergency room for further evaluation. According to the , the patient had also complained of some dysuria, burning on urination and felt that he was dehydrated, Tried to drink about a glass and a half of water and Gatorade , but initially had complaint of burning of urination without any flank pain or chills. The son from [place] is a soldier that was tested prior to boarding the plane to the [facility] [place]. He was checked with a thermometer and was afebrile and had no symptoms. He remained in quarantine for 14 days with the patient and the patient's , as the others were afraid of potentially infecting his children despite being COVID negative. The patient remained quarantined at home. His last visit was to hematology oncology on February 10. He has had decrease in appetite not drinking very much. No nausea or vomiting, but did have one episode of loose stools from the heat about a week ago. The patient was admitted to [facility], given vancomycin, Zosyn, azithromycin. COVID-19 testing was negative. Chest x-ray showed a left lower lobe infiltrate. He was increasingly hypoxic, requiring 2 then 5 liters of oxygen and subsequently transferred to [facility]. He was also treated for chronic obstructive pulmonary disease (COPD) exacerbation with IV Solu-Medrol. On arrival, the patient was 93% on Ventimask, FiO2 of 50%, 15 liters oxygen flow, febrile at 102 temperature and tachycardic 119 with respiratory of 32. The patient is admitted for acute hypoxic respiratory failure and sepsis secondary to a left lower lobe pneumonia. COVID testing is still pending. PAST MEDICAL HISTORY: 1. Left lower lobe pneumonia September 2019. 2. Chronic lymphocytic leukemia (CLL) on chronic chemotherapy, Imbruvica. 3. History of pulmonary nodule. 4. Chronic obstructive pulmonary disease (COPD) emphysema, not on home oxygen and not steroid dependent. 5. 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 6. Microcytosis. 7. Hypertension. 8. Hyperlipidemia 9. Hypothyroidism. 10. Chronic back pain with neuropathy. 11. Urine incontinence. 12. Back surgery with grafting from bilateral hips. 13. Left ankle surgery. 14. Umbilical hernia repair. 15. Penile prosthesis 16. Binge eating with anorexia and bulimia. PAST SURGICAL HISTORY: Cystoscopy 2012, 2013 and 2017 and August 2019. Back surgery with grafting from bilateral hips. Left ankle surgery. Penile prosthesis. Colonoscopy and cystoscopy. Penile implant. Abdominal hernia repair. ALLERGIES: CIPRO causing edema and anaphylaxis. LATEX causing rash. HOME MEDICATIONS: Imbruvica 140 mg capsule, three capsules daily, acetaminophen 500 mg four times a day as needed, vitamin D3 1000 units daily, oxybutynin 10 mg daily, Norvasc 10 mg daily, Synthroid 137 mcg daily, aspirin 81 mg daily, albuterol 2 puffs every 4 hours as needed, pravastatin 40 mg daily. SOCIAL HISTORY: Previously smoked 2 packs a day, currently down to a half a pack to one pack a day with over 30 pack year history of smoking. Denies recreational drug use. Alcohol use: Occasional beer. 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 FAMILY HISTORY: Mother with lung cancer. Father with osteosarcoma at the age of 86. Three bothers, two living sisters, one sister of suicide. REVIEW OF SYSTEMS: The patient has fever, no chills, no headaches, changes in vision or sore throat. No ear discharge, tinnitus or vertigo. The patient had decrease in oral intake without any weight loss, weight gain. No nausea, vomiting, diarrhea, abdominal pain, bright red blood per rectum, melena or black tarry stools. Complains of cough productive of white yellow thick sputum, shortness of breath, unable to move from bedroom to the bathroom without difficulty, no chest pain, pressure or tightness, lightheadedness or dizziness. Denies any flank pain, but complains of dysuria, urgency and frequency. History of bladder cancer. Complains of generalized weakness due to shortness of breath. No upper or lower extremity paresthesias. No depression or anxiety. History of binge eating with anorexia and bulimia. No bright red blood per rectum, melena or black tarry stools. No excessive bleeding episodes. All other systems are otherwise negative. PHYSICAL EXAMINATION: Temperature is 102, pulse 119, respiratory rate 32, blood pressure (BP) 137/64, 94% on 15% flow rate, FiO2 of 50%. General: The patient is in moderate distress with positive use of accessory muscles and 3 to 4 word conversational dyspnea. He appears his stated age. Pupils are round, reactive to light and accommodation. Extraocular muscles are intact. Dry mucous membranes. No jugular venous distension (JVD), thyromegaly or cervical lymphadenopathy. Lungs are diminished with crackles at the left base. Coarse wheezing and rhonchi. Heart: S1, S2, sinus tachycardia, no murmurs, rubs or gallops. Abdomen: Soft, nontender, nondistended. Positive bowel sounds in all four quadrants. No abdominal bruits. Extremities: No clubbing, cyanosis or any pitting edema. LABORATORY DATA: White count 5.1, hemoglobin 7.9, hematocrit 23.2, platelet count of 103. Comprehensive metabolic panel: COVID-19 respiratory panel still pending. Procalcitonin. Cardiac markers, basic metabolic panel (BMP), sputum, blood cultures are pending. Urinalysis is pending. COVID-19, hepatitis serology, HRV are all pending. Chest x-ray: Left lower lobe infiltrate. ASSESSMENT AND PLAN : This is a 64-year-old male with history of chronic lymphocytic leukemia (CLL) on chronic Imbruvica, suspected common variable immunodeficiency, superficial bladder cancer, hypertension, hyperlipidemia, vitamin D deficiency, urinary incontinence, hypothyroidism, chronic obstructive pulmonary disease (COPD), actively smoking cigarettes with 30 pack year history of smoking, was seen at his primary care physician's office with a fever of 102 after complaining of fever, shortness of breath and cough productive of white sputum at home two days prior to admission to [facility]. The patient had worsening symptoms and remained hypoxic, currently requiring non-rebreather. Transferred to [facility] for further evaluation and management. On arrival, the patient's blood gas was 7.48, CO2 of 23 and O2 of 61.1. He is saturating 92% on De Guzman mask 50% FiO2, 15 liters flow rate. Hospitalist was asked to admit for the following acute issues as an inpatient. 1. Sepsis secondary to left lower lobe pneumonia. The patient has been given vancomycin, Zosyn and azithromycin, which we will continue. Sputum, blood cultures have been obtained, as well as urine streptococcal antigen, urine legionella, COVID-19 testing is still pending. He is kept in negative pressure room with contact and droplet isolation until COVID-19 testing has returned. The patient is broadly covered nd will de-escalate antibiotics once sputum culture is available. 2. Acute chronic obstructive pulmonary disease (COPD) exacerbation in the setting of chronic emphysema and still actively smoking, one half to one pack a day per the patient's . The patient has been given IV Solu-Medrol, as well as albuterol. Once the patient's COVID-19 testing is negative, we may give the patient nebulizer treatments every 4 hours, every 1 hours as needed with Xopenex since he is tachycardiac. At this time, he has been given broad-spectrum antibiotics, will continue with breathing treatments and Solu-Medrol 50 mg IV every 6 hours. Continue with intensive care unit (ICU) care. Repeat arterial blood gas if persistent hypoxia or altered mental status for concerns of hypercarbia and hypocapnic respiratory failure. 3. Complains of dysuria with history of superficial bladder cancer. Will check a urinalysis, urine DEVELOPMENT INTERN, broadly covered currently for possible enterococcus with vancomycin, serratia with Zosyn, await urine culture, blood culture results before de-escalating antibiotics. 4. Anemia, most likely related to chronic lymphocytic leukemia (CLL), chronic Imbruvica. Defer to medical oncologist, Dr. Rivers, regarding threshold for blood transfusion. Medical oncology has been consulted and will defer transfusion goals to meat pumper. 5. Thrombocytopenia, most likely secondary to sepsis. Continue to monitor. Avoid heparin products. The patient has been kept on compression stockings for now. 6. Acute hypoxic respiratory failure, currently requiring face mask to keep oxygen level at 90 to 92%. The patient is currently requiring a nonrebreather, which change to Vapotherm as needed. Continue with treatment for chronic obstructive pulmonary disease (COPD) and left lower lobe pneumonia 7. Hypertension. Stable. 8. Hypothyroidism. Continue on Synthroid. Check thyroid simulating hormone (TSH). 9. Urinary incontinence. Continue on oxybutynin. 10. Vitamin D deficiency. Continue on 1000 units daily. 11. Type 2 diabetes on sliding scale, fingersticks before food, at bedtime (hs). Check A1c. 12. Active tobacco smoking. Tobacco cessation counseling and nicotine patch have been provided. 13. Immunodeficiency. check immunoglobulin levels, may need iv ig if does not improve clinically. defer to medonc. 14. Acute hypoxic respiratory failure requiring vapotherm. consulted pulmonology. optimized on broad spectrum antibiotics due to immunocompromised state with vanco zosyn atypical coverage with azithromycin, and iv solumedrol, nebs for copd exacerbation. defer to pulm for further changes in management. CODE STATUS: Full code. The patient's is the healthcare proxy. Phone number is [phone]. [facility]
[2020-03-05] VITALS (25 sets, daily range): BP systolic 108–155; BP diastolic 57–75; O2SAT 94
[2020-03-05] MEDS: LEVALBUTEROL 1.25 MG/0.5 ML CONCENTRATE NEB INH SCH ×7 (00:21→23:36)
[2020-03-05] MEDS: IPRATROPIUM 0.02% SOLN 0.5MG 2.5ML NEB INH SCH ×7 (00:21→23:36)
[2020-03-05] MEDS: methylPREDNISolone 125MG 2ML VIAL IV SCH ×4 (03:34→21:07)
[2020-03-05] MEDS: PIPERACILLIN/TAZOBACTAM SOD 4.5 GM in D5W MINI-BAG PLUS 50 ML IV SCH ×4 (03:34→21:06)
[2020-03-05 05:26] LABS: HEMOGLOBIN 7.1 g/dl (13.5-17.5); RED BLOOD COUNT 2.09 10^6/uL (4.30-6.10); WHITE BLOOD COUNT 4.9 10^3/uL (4.0-10.0)
[2020-03-05 05:44] LABS: CALCIUM LEVEL 6.4 MG/DL (8.8-10.2); CREATININE FOR GFR 1.69 MG/DL (0.70-1.30); GLOMERULAR FILTRATION RATE 43.4 (>49); POTASSIUM SERUM 3.3 MEQ/L (3.5-5.1)
[2020-03-05 06:10] LABS: HEMATOCRIT 20.9 % (42.0-52.0); PLATELET COUNT, AUTOMATED 94 10^3/uL (150-450)
[2020-03-05] MEDS: LEVOTHYROXINE 137MCG TABLET (0.137MG) PO SCH (06:10)
[2020-03-05] MEDS: VANCOMYCIN HCL 1,000 MG, VIAL MATE ADAPTER 1 EACH in D5W 250 ML IV SCH ×2 (06:10→19:38)
[2020-03-05] MEDS: HEPARIN SOD (PORCINE) 5000UNITS/ML 1ML VIAL/SYRINGE SQ SCH ×3 (06:10→21:08)
--- NOTE | 2020-03-05 06:55 | CCN ---
DATE: 03/04/2020 I was called to the intensive care unit to evaluate this 64-year-old male for hypoxic respiratory failure. He was transferred to [facility] earlier today from [facility] where he presented with shortness of breath, cough and sputum production. He was diagnosed with pneumonia. His symptoms had been of about 3 days onset. He has been having difficulty expectorating sputum and developed left-sided chest pain. Since admission to [facility], he has had progressive decline in oxygen saturations despite progressive increase in oxygen delivery. Past medical history per the electronic record includes chronic lymphocytic leukemia. He is on a tyrosine kinase inhibitor. He has obstructive lung disease, is a 30 pack-year smoker, continues to smoke. He is treated for hypertension, bladder cancer and hypothyroidism. At bedside, he is ill appearing in moderate respiratory distress. His temperature is 100.1, pulse rate 106, respirations 18, blood pressure 132/59, oxygen saturation 90% on 30 liters of oxygen via nasal cannula high-flow system. HEENT: His oral mucosa is dry. Neck is supple. Jugular veins are flat. Carotid upstroke is brisk. There is no adenopathy. Heart sounds are regular, somewhat distant. Breath sounds are diminished with a pleural friction rub on the left lateral chest wall. There is some large airway rhonchi. Abdomen is soft with intact bowel sounds. Extremities show no edema. Homans sign is negative. Peripheral pulses are easily palpable. There are no varicosities. Diagnostic Studies: His chest x-ray shows a left lower lobe lucency consistent with pneumonia and hyperinflation. Prior chest x-rays and CAT scans of the chest were reviewed. He has an electrocardiogram showing a right bundle branch block and sinus tachycardia. White cell count is 5.1, hemoglobin 7.9, hematocrit 23.2 and platelet count 103. The differential shows 95% lymphocytes. IgG, IgA and IgM are all diminished. He had a nasal swab for COVID-19 which was negative. His sodium is 137, potassium 3.6, chloride 112, CO2 19, BUN 27, creatinine 1.43, glucose 125. His lactic acid is 1.2, AST is 41, ALT 21, CRP is 40.6, BNP is 1645 and his troponin is 0.14. Medications since admission include vancomycin, Zosyn and azithromycin. He has received Solu-Medrol and Xopenex nebulized therapy. The primary problem requiring critical attention is acute hypoxic respiratory failure. Will continue to titrate supplemental oxygen via high-flow system. Left lower lobe pneumonia. The patient is receiving adequate broad-spectrum coverage. Sputum cultures are pending. Anemia likely secondary to chemotherapy. I would propose transfusion if his hemoglobin reaches 7. The patient is an immunocompromised state and will need close observation. ICU care is appropriate. Deep vein thrombosis (DVT) prophylaxis is being addressed with sequential hose. I will add heparin as his risk for DVT is significant. The patient's condition is critical. Prognosis is guarded. One hour and 25 minutes was spent in provision of bedside critical care and coordination, exclusive of procedure time. [facility]
[2020-03-05] MEDS: HumaLOG INSULIN (NovoLOG) PER UNIT SC SCH ×4 (07:44→21:00)
[2020-03-05] MEDS ORDERED: ACETAMINOPHEN 500 MG TAB PO ONE ×2 (08:00→10:30)
[2020-03-05] MEDS ORDERED: diphenhydrAMINE 25MG CAP PO ONE ×2 (08:00→10:30)
[2020-03-05] MEDS ORDERED: POTASSIUM CHLORIDE 10 MEQ SR TABLET PO ONE (08:00)
[2020-03-05] MEDS: ASPIRIN 81 MG ENTERIC TAB PO SCH (08:30)
[2020-03-05] MEDS: oxyBUTYnin *DITROPAN XL* 5 MG TABCR PO SCH (08:31)
[2020-03-05] MEDS: SODIUM BICARBONATE 325 MG TAB PO SCH ×4 (08:31→21:08)
[2020-03-05] MEDS: VITAMIN D 1,000 INTERNATIONAL UNITS TABLET PO SCH (08:31)
[2020-03-05] MEDS: NICOTINE 14 MG/24 HR TRANSDERMAL TD SCH (08:33)
[2020-03-05] MEDS ORDERED: IMBRUVICA 140 MG PO SCH (09:00)
[2020-03-05] MEDS ORDERED: NON-FORMULARY COMPOUNDED MEDICATION PO SCH (09:00)
[2020-03-05 09:33] LABS: HEPATITIS B SURFACE ANTIGEN NEGATIVE (NEGATIVE)
--- NOTE | 2020-03-05 09:47 | CR.PDOC ---
General Date of Consultation: Mar 05, 2020 Referring Provider: LANG NELSON MD Consultation Hematology/oncology REASON FOR CONSULTATION/CHIEF COMPLAINT: Left lower lung pneumonia with respiratory distress and setting of underlying common variable immunodeficiency syndrome from long-standing chronic lymphocytic leukemia. HISTORY OF PRESENT ILLNESS: My pleasure to see this 64-year-old gentleman with long-standing history of for cytogenetics ( high risk) chronic lymphocytic leukemia with the 17 P mutation diagnosed in 2011. Patient was seen last month and evaluated. There was no evidence of recurrent infections. Because of hir diagnosis of life-threatening pneumonia in September 2019, the patient was assessed for common variable immunodeficiency based on underlying diagnosis. Patient's history is remarkable for being an active smoker, having pulmonary nodules with next CT scan due in April. Patient presented with an acute sudden onset of severe fatigue, malaise, cough which became progressively worse and started about 3 days before patient sought treatment. Patient presented to [facility] with hyperpyrexia with a temperature 100.2. Found to have left lower lobe pneumonia as well as dysuria and dehydration symptoms. Patient had rapid progression of hypoxia. Patient was transferred to [facility] due to respiratory failure and sepsis Patient had one episode of hyperpyrexia when admitted to [facility]. Patient reports that he is improved from previous Patient reports he was "sicker in September" Patient remains on high flow oxygen at the moment Patient receiving intravenous, gammaglobulin as recommended CLL DIAGNOSIS AND TREATMENT HISTORY: CLL/SLL with anemia, b/l cervical, axillary and groin, LAD, weight loss, night sweats on presentation - s/p flow cytometry 02/08/12 c/w CLL - s/p BM X 04/22/12 - CLL/SLL with unfavorable indicators - del (17p). - 06/17/12 - fludarabine/Cytoxan/Rituxan x3 cycles ending 08/21/12, with Rituxan added cycle 2. - 10/14/12 - Arzerra per Dr. Joshi through 12/02/12 - 9 weeks of therapy. - 04/28/13 - High dose Rituxan x6 weeks completed 05/09/13. - 12/10/13 - Rituxan per Dr. Joshi - 05/30/14. - 10/22/13 - ibrutinib 420 mg p.o. through present - per Dr. Joshi. Patient was treated by his local medical oncologist in [place] as well as Dr. Joshi at [facility]. In the summer of 2018 he relocated to [place] PAST MEDICAL/SURGICAL HISTORY: Back injury followed by back surgery with neuropathy. Hyperlipidemia. Hypertension. Hypothyroidism. Urinary incontinence. Superficial bladder cancer. Back surgery x2 with grafting from bilateral hips. Left ankle surgery. Umbilical hernia repair. Penile prosthesis. Past Surgical History: As above Cystoscopy 05/06/2013, 11/25/2013, 03/2014, 12/2017, last cystoscopy to date 08/29/19 SOCIAL HISTORY: Previously smoked 2 packs a day, currently down to a half a pack to one pack a day with over 30 pack year history of smoking. Denies recreational drug use. Alcohol use: Occasional beer. 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 FAMILY HISTORY: Mother with lung cancer. Father with osteosarcoma at the age of 86. Three bothers, two living sisters, one sister of suicide. REVIEW OF SYSTEMS: Significant shortness of breath even at rest Decreased appetite Cough PHYSICAL EXAMINATION: VITAL SIGNS: Please see below. GENERAL APPEARANCE: Acutely ill in moderate distress HEENT: No thrush. RESPIRATORY: Markedly abnormal with bronchovesicular breath sounds throughout and decreased breath sounds at the left base CARDIOVASCULAR: Regular 98 bpm. ABDOMEN: Nontender. EXTREMITIES: No edema. Compression boots in place NEUROLOGICAL: Alert and oriented 3 with normal mood. PSYCHIATRIC: Normal mood. LABORATORY DATA: Please see below. ASSESSMENT/PLAN: Critically ill 64-year-old gentleman with underlying aggressive chronic lymphocytic leukemia with unfavorable cytogenetics including deletion of 17p diagnosed 2011 currently on ibrutinib. Patient is septic with left lower lobe pneumonia. Patient is currently in respiratory failure. Patient developed myelosuppression due to acute illness and is currently anemic with thrombocytopenia developing. Patient is also having acute on chronic renal insufficiency due to acute illness. Patient now is been documented to have severe common variable immunodeficiency syndrome. Recommendations Proceed with blood transfusion support for hemoglobin is 7.1 g/dL with goal to keep hemoglobin above 7 g/dL Please hold imbruvica Continue broad spectrum antibiotics Given his severe common variable immune deficiency syndrome and acute illness, there is some data overall for administering intravenous gammaglobulin 400 mg/kg equals 30 g now. Review of the data regarding intravenous gammaglobulin in this setting is not entirely helpful due to lack of perspective studies with meta- analysis not able to provide firm conclusions. The only conclusion that can be drawn is that infusional therapy is a promising therapy in patients with pneumonia and severe sepsis with septic shock Therefore, in my opinion the benefit outweighs the risk of proceeding with intravenous gammaglobulin and would recommend proceeding with this time. The patient survives admission, recommend monthly intravenous gammaglobulin. Patient is in agreement Data regarding recommendation was made from review of: Manuelito CORTEZ, et. al "[place]-analysis: Intravenous gammaglobulin in critically ill patients with sepsis." Annals internal medicine 2007; 146 (3): 793094 Tila THOMPSON etal. "Intravenous immunoglobulin for treating sepsis and septic shock." [place] Database Sst Rev 2002:(1): DP4479768 Stanley J Et. Al "polyclonal immunoglobulin for treatment of bacterial sepsis: A systematic review" Clin Infectious Disease 2004;39(1):38-46 Hitesh URBAN, et al. "polyclonal intravenous immunoglobulin for the treatment of severe sepsis and septic shock in critically ill adult: Systematic review and meta-analysis"critical care medicine 2007; 35 (12): 248177 Vital Signs/I&O Vital Signs Date Time Temp Pulse Resp B/P (MAP) Pulse Ox O2 Delivery O2 Flow Rate FiO2 03/05/20 08:00 30.0 60 03/05/20 08:00 97.4 105 24 135/60 (85) 92 HVNI-Vapotherm I&O- Last 24 Hours up to 6 AM 03/05/20 06:00 Intake Total 1315 ml Output Total 650 ml Balance 665 ml Laboratory Data Labs 24H Laboratory Tests 2 03/04/20 13:10: Blood Gas Bicarbonate Standard 20.2L, Arterial Blood pH 7.487H, Arterial Blood Partial Pressure CO2 23.4L, Arterial Blood Partial Pressure O2 61.1L, Arterial Blood Total CO2 18.0L, Arterial Blood HCO3 17.3L, Arterial Blood Base Excess - 5.1L, Arterial Blood Oxygen Saturation 91.6L 03/04/20 13:19: Coronavirus (COVID-19)(PCR) NEGATIVE 03/04/20 13:30: 03/04/20 13:36: Neutrophils (%) (Auto) , Neutrophils # (Auto) , Nucleated Red Blood Cells % (auto) 0.0, Neutrophils 5L, Lymphocytes (Manual) 95H, Poikilocytosis 1+, Anisocytosis 1+, Macrocytosis 1+, Smudge Cells 1+, Platelet Estimate DECREASED, Prothrombin Time 15.4H, Prothromb Time International Ratio 1.25, Activated Partial Thromboplast Time 36.8, Fibrinogen 1393H, D-Dimer, Quantitative > 4000H, Anion Gap 6L, Glomerular Filtration Rate 51.8, Lactic Acid Level 1.2, Calcium Level 6.8L, Ferritin 690H, Total Bilirubin 0.7, Aspartate Amino Transf (AST/SGOT) 41H, Alanine Aminotransferase (ALT/SGPT) 21, Alkaline Phosphatase 35L, Lactate Dehydrogenase 287H, Total Creatine Kinase 439H, Creatine Kinase MB 2.5, Creatine Kinase MB Relative Index 0.57, Troponin I 0.14H, C-Reactive Protein, Quantitative 40.60H, TI-Ssv-Y-Type Natriuretic Peptide 1645H, Total Protein 4.8L, Albumin 1.7L, Albumin/Globulin Ratio 0.5, Triglycerides Level 84, Immunoglobulin A 41.5L, Immunoglobulin G 258L, Immunoglobulin M 6.4L, Hepatitis B Core IgG Antibody Negative 03/04/20 14:15: Random Vancomycin Level 2.6 03/04/20 15:28: Urine Color YELLOW, Urine Appearance CLOUDYH, Urine pH 5.0, Urine Specific [place] 1.018, Urine Protein 2+H, Urine Glucose (UA) NEGATIVE, Urine Ketones NEGATIVE, Urine Blood 2+H, Urine Nitrite NEGATIVE, Urine Bilirubin NEGATIVE, Urine Urobilinogen 0.2, Urine Leukocyte Esterase NEGATIVE, Urine WBC (Auto) 5H, Urine RBC (Auto) 3, Urine Hyaline Casts (Auto) 0, Urine Bacteria (Auto) NEGATIV E, Urine Squamous Epithelial Cells 0, Urine Amorphous Sediment SMALLH, Urine Sperm (Auto) , Methicillin-Resist S.aureus DNA PCR NOT DETECTED 03/04/20 16:22: Bedside Glucose (Misc Panel) 148H 03/04/20 21:04: Bedside Glucose (Misc Panel) 153H 03/05/20 04:47: Nucleated Red Blood Cells % (auto) 0.0, Immature Platelet Fraction 5.6, Anion Gap 10, Glomerular Filtration Rate 43.4L, Calcium Level 6.4L CBC/BMP Laboratory Tests 03/04/20 13:36 03/05/20 04:47 Microbiology Microbiology 03/04/20 Respiratory Virus Panel (PCR) ([facility]) - Final, Complete 03/04/20 Blood Culture, Received Pending 03/04/20 Gram Stain - Final, Resulted 03/04/20 Sputum Culture, Resulted Pending 03/04/20 Blood Culture, Received Pending Allergies Coded Allergies: ciprofloxacin (Verified Allergy, Intermediate, SWELLING, 10/10/19) latex (Verified Allergy, Intermediate, RASH, 10/10/19) Home Medications Scheduled Amlodipine Besylate (Amlodipine Besylate) 10 Mg Tablet, 10 MG PO DAILY, (Reported) Aspirin (Aspir 81) 81 Mg Tablet.dr, 81 MG PO DAILY, (Reported) Atorvastatin Calcium (Atorvastatin Calcium) 40 Mg Tablet, 40 MG PO DAILY, (Reported) GIVEN AT [facility] Cholecalciferol (Vitamin D3) (Vitamin D3) 1,000 Unit Tablet, 1,000 UNITS PO DAILY, (Reported) Enoxaparin Sodium (Lovenox) 40 Mg/0.4 Ml Syringe, 40 MG SC DAILY, (Reported) STARTED AT [place] Ibrutinib (Imbruvica) 140 Mg Capsule, 3 CAP PO DAILY for 90 Days, #270 Ipratropium/Albuterol Sulfate (Iprat-Albut 0.5-3(2.5) mg/3 ml) 3 Ml Ampul.neb, 1 VIAL NEB QID for 30 Days, #60 (Reported) Levothyroxine Sodium (Levothyroxine Sodium) 137 Mcg Tablet, 137 MCG PO DAILY, (Reported) Oxybutynin Chloride (Oxybutynin Chloride ER) 10 Mg Tab.er.24, 10 MG PO DAILY, (Reported) HOME MED Oxybutynin Chloride (Oxybutynin Chloride) 5 Mg Tablet, 5 MG PO BID, (Reported) GIVEN AT [facility] Pantoprazole Sodium (Pantoprazole Sodium) 40 Mg Tablet.dr, 40 MG PO DAILY, (Reported) STARTED AT [facility] Pravastatin Sodium (Pravastatin Sodium) 40 Mg Tablet, 40 MG PO DAILY, (Reported) HOME MED Scheduled PRN Acetaminophen (Acetaminophen) 325 Mg Tablet, 650 MG PO Q4H PRN for PAIN, (Reported) Albuterol Sulfate (Ventolin Hfa) 18 Gm Hfa.aer.ad, 2 PUFF INH Q4H PRN for SHORTNESS OF BREATH, (Reported) Guaifenesin (Guaifenesin) 100 Mg/5 Ml Liquid, 10 ML PO Q4H PRN for COUGH, (Reported) MANUELA VÁSQUEZ MD Mar 05, 2020 09:38
[2020-03-05] MEDS ORDERED: IMMUNE GLOBULIN 10% 0 GM in IV 1 EA IV SCH (10:00)
[2020-03-05 10:01] LABS: HIV 1&2 SCREEN CENTAUR NEGATIVE (NEGATIVE)
[2020-03-05] MEDS ORDERED: ISOVUE-370 76% 100ML VIAL As Ordered ONE ×2 (10:53→11:27)
[2020-03-05] MEDS ORDERED: IMMUNE GLOBULIN 10% 20 GM in IV 1 EA IV ONE (11:00)
[2020-03-05] MEDS ORDERED: IMMUNE GLOBULIN 10% 10 GM in IV 1 EA IV ONE (11:00)
[2020-03-05] MEDS: AZITHROMYCIN INJ 500 MG, VIAL MATE ADAPTER 1 EACH in D5W 250 ML IV SCH (13:37)
--- NOTE | 2020-03-05 14:16 | REP ---
REASON: Pneumonia, hypoxia, possible pulmonary embolus. All prior chest CTs were reviewed, the latest, a noncontrast enhanced chest CT of 10/10/2019. CONTRAST TODAY: 100 mL Isovue-370. There is less than optimal visualization of the pulmonary arterial vasculature. Tiny pulmonary emboli cannot be excluded. There is heavy consolidation of the left lower lobe. This is seen with air bronchograms. The appearance of this has increased markedly compared to the prior exam. There is free and loculated left pleural fluid, also increased from the prior exam. There is a small pericardial effusion. There is mediastinal adenopathy. There is probable left hilar adenopathy, the same density as the heavy consolidation. The thoracic aorta is within normal limits. The imaged upper abdomen and imaged osseous structures are unchanged. Evaluation of the lung roque shows patchy asymmetric densities scattered bilaterally in addition to the aforementioned heavy left lower lobe consolidation. These areas could obscure a significant nodule and have increased compared to the prior exam. The patchy opacity seen previously in the apical posterior segment of the left upper lobe has also increased. IMPRESSION: 1. There is no evidence of a pulmonary embolus, however, the examination is somewhat limited, as described above. 2. Abnormal lung roque, particularly left lower lobe with findings worsened from the prior exam. 3. Adenopathy. 4. Other findings, as described above. Electronically Signed by Chidi Grajeda DO 03/05/2020 03:25 P
--- NOTE | 2020-03-05 14:52 | REP ---
REASON: Abdominal pain, hypoxemia. There are no priors for comparison. CONTRAST: 100 mL Isovue-370. For description of the lung bases, see the CT chest report made same day. The liver, gallbladder, spleen, pancreas, adrenal glands, and kidneys are within normal limits. There is central mesenteric and para-aortic adenopathy. There is central mesenteric congestion and fatty infiltration without an abnormal fluid collection. No free fluid or free air is seen in the abdomen or pelvis. There appears to be small bowel wall edema, but difficult to evaluate without contrast opacification. There is an inflatable device in the right groin attached to penile implants. Bone window technique throughout the exam shows chronic spinal degenerative changes and bilateral L5 spondylolysis. IMPRESSION: 1. Mesenteric and para-aortic adenopathy. 2. Likely small bowel wall edema. Likely infectious, however, vascular etiology cannot be ruled out by this exam. 3. Other findings as described above. Electronically Signed by Chidi Grajeda DO 03/05/2020 03:26 P
--- NOTE | 2020-03-05 17:14 | ECGEPIP ---
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
[2020-03-05] MEDS: PRAVASTATIN 20 MG TAB PO SCH (21:08)
[2020-03-05] MEDS: D5W/0.9% SODIUM CHLORIDE 1,000 ML IV SCH (21:10)
[2020-03-06] VITALS (10 sets, daily range): BP systolic 127–159; BP diastolic 63–97; O2SAT 94–95
[2020-03-06] MEDS: PIPERACILLIN/TAZOBACTAM SOD 4.5 GM in D5W MINI-BAG PLUS 50 ML IV SCH ×4 (03:28→21:10)
[2020-03-06] MEDS: methylPREDNISolone 125MG 2ML VIAL IV SCH ×4 (03:28→21:10)
[2020-03-06] MEDS: ACETAMINOPHEN 500 MG TAB PO PRN (03:29)
[2020-03-06 04:09] LABS: HEMATOCRIT 23.8 % (42.0-52.0); HEMOGLOBIN 8.3 g/dl (13.5-17.5); MEAN CORPUSCULAR HEMOGLOBIN 33.5 pg (27.0-33.0); MEAN CORPUSCULAR HGB CONC 34.9 g/dl (32.0-36.5); RED BLOOD COUNT 2.48 10^6/uL (4.30-6.10); WHITE BLOOD COUNT 4.1 10^3/uL (4.0-10.0)
[2020-03-06] MEDS: LEVALBUTEROL 1.25 MG/0.5 ML CONCENTRATE NEB INH SCH ×6 (04:11→23:47)
[2020-03-06] MEDS: IPRATROPIUM 0.02% SOLN 0.5MG 2.5ML NEB INH SCH ×6 (04:12→23:47)
[2020-03-06 04:15] LABS: PLATELET COUNT, AUTOMATED 66 10^3/uL (150-450)
[2020-03-06 04:54] LABS: CALCIUM LEVEL 6.2 MG/DL (8.8-10.2); CREATININE FOR GFR 1.62 MG/DL (0.70-1.30); GLOMERULAR FILTRATION RATE 45.6 (>49); POTASSIUM SERUM 3.7 MEQ/L (3.5-5.1)
[2020-03-06] MEDS: VANCOMYCIN HCL 1,000 MG, VIAL MATE ADAPTER 1 EACH in D5W 250 ML IV SCH ×2 (06:01→18:21)
[2020-03-06] MEDS: LEVOTHYROXINE 137MCG TABLET (0.137MG) PO SCH (06:02)
[2020-03-06] MEDS: HEPARIN SOD (PORCINE) 5000UNITS/ML 1ML VIAL/SYRINGE SQ SCH ×3 (06:02→13:36)
[2020-03-06] MEDS: D5W/0.9% SODIUM CHLORIDE 1,000 ML IV SCH ×2 (06:05→21:10)
--- NOTE | 2020-03-06 07:33 | IPN ---
DATE: 03/05/2020 Per nursing, patient desaturated to 85% when he was having a bowel movement. He currently still complains of dyspnea, cough productive of white, thick sputum. No fevers overnight. On vancomycin, Zosyn and azithromycin. Patient continued to require more oxygen and was placed on Vapotherm at 60% FiO2, continues to have significant dyspnea. Denies bright red blood per rectum, melena, black, tarry stools, hematemesis or coffee-ground emesis. Maximum temperature (T max) 102, current temperature 97.6, pulse 102, respiratory rate 24, blood pressure 136/63, 90% on Vapotherm, 60% FiO2, 30 flow rate. Generally, awake, alert, oriented to person, place and time, answering questions appropriately. No facial asymmetry. Tongue is midline. Dry mucous membranes. No jugular venous distention (JVD) or thyromegaly. The patient has conversational dyspnea 3-4 words with use of respiratory accessory muscles. Lungs: Diminished with crackles at the left base, has coarse breath sounds and rhonchi. Heart: S1, S2, sinus tachycardia. Abdomen is soft, nontender, nondistended. Extremities: No cyanosis, clubbing or pitting edema. LABORATORY DATA: White count 4.9, hemoglobin 7.1, hematocrit 20.9, platelet count 94. Sodium 141, potassium 3.3, chloride 112, bicarbonate 19, BUN 36, creatinine 1.69, glucose of 153. ASSESSMENT AND PLAN: This is a 64-year-old male with a history of CLL, on chronic Imbruvica, actively smoking, with over a 30 pack-year history of smoking, right upper lobe pneumonia in September and suspected common variable immunodeficiency syndrome, superficial bladder cancer, presents with fever, cough, shortness of breath, admitted to [facility] for a left lower lobe pneumonia with worsening hypoxia. Patient is not home oxygen dependent, was found to be severely hypoxic. Patient had seen his primary care physician with a fever of 102 and was sent to [place] emergency room and subsequently admitted, transferred to [facility] due to worsening hypoxic respiratory failure. He is COVID negative. IMPRESSION: 1. Sepsis secondary to left lower lobe pneumonia, on vancomycin, Zosyn, azithromycin, await sputum culture and de-escalate antibiotics. COVID-19 testing was negative. 2. Acute hypoxic respiratory failure secondary to sepsis from left lower lobe pneumonia and COPD exacerbation, currently requiring Vapotherm, keep saturations of 90-92%, currently on full supportive care with IV steroids and IV antibiotics. 3. Acute chronic obstructive pulmonary disease (COPD) exacerbation in the setting of chronic emphysema, pulmonary nodules, still actively smoking a half to one pack a day, currently on IV Solu-Medrol, Xopenex due to tachycardia, unable to give albuterol. 4. History of superficial bladder cancer. Urinalysis (UA) has been sent, which was negative. 5. History of superficial bladder cancer, status post treatment. 6. Immunoglobulin deficiency. Health Services Coordinator premix concrete batcher, Dr. Rivers, has been consulted to advise on IVIG infusion. 7. Active smoking. Tobacco cessation counseling has been provided. Nicotine patch. 8. Type 2 diabetes, on sliding scale with coverage. 9. Hypertension. Currently with systolic pressure of 117 to 136, holding parameters placed on his home medications. 10. Hypothyroidism, on chronic Synthroid. 11. Vitamin D deficiency. Continue on vitamin D supplements. MTDD
[2020-03-06] MEDS: HumaLOG INSULIN (NovoLOG) PER UNIT SC SCH ×4 (08:37→20:39)
[2020-03-06] MEDS: oxyBUTYnin *DITROPAN XL* 5 MG TABCR PO SCH (08:37)
[2020-03-06] MEDS: SODIUM BICARBONATE 325 MG TAB PO SCH ×4 (08:37→21:09)
[2020-03-06] MEDS: ASPIRIN 81 MG ENTERIC TAB PO SCH (08:37)
[2020-03-06] MEDS: VITAMIN D 1,000 INTERNATIONAL UNITS TABLET PO SCH (08:38)
[2020-03-06] MEDS: NICOTINE 14 MG/24 HR TRANSDERMAL TD SCH (08:47)
--- NOTE | 2020-03-06 08:49 | CCN ---
DATE: 03/05/2020 CRITICAL CARE NOTE The patient is seen in the intensive care unit, hypoxemic, day #2. He does appear a bit more comfortable this morning. His temperature has normalized. Saturations are better with significant flows of oxygen. He is complaining of intermittent diarrhea and abdominal bloating. His temperature is 97, maximum temperature (T max) for the past 24 hours is 102, pulse rate 105, respirations 24, blood pressure 136/60. Intake and output for the past 24 hours is 1265 in, 100 out; since midnight 620 in, 800 out. At bedside, he is ill appearing. His oral mucosa is now no longer dry. Neck is supple. There are 2 cm of jugular venous distension. Heart sounds are regular, somewhat rapid. Breath sounds are diminished globally, and there is expiratory wheeze. Chest is symmetric, moves symmetrically. Accessory muscles are engaged with conversation. Abdomen is soft but distended. Bowel sounds are hypoactive. There is no in acute pain to palpation. No palpable mass. Extremities are cool. Pulses are palpable. There is no edema. Nails are not clubbed. DIAGNOSTIC STUDIES: White cell count is down slightly at 4.9, hemoglobin is down at 7.1, hematocrit 20.9, platelet count 94,000. His sodium is 141, potassium 3.3, chloride 112, CO2 of 19, BUN 36, creatinine 1.69, glucose 153. Infectious disease review: Sputum cultures so far negative. Blood cultures are negative times two. Medications review: This is day #2 of vancomycin, day #2 azithromycin, day #2 piperacillin. He is receiving Solu-Medrol day #2, subcutaneous heparin, D5 and saline at 60 mL per hour and supplemental potassium has been ordered. The primary problem requiring critical attention is acute hypoxic respiratory failure. The patient's saturations are better, but he is requiring an inordinate amount of supplemental oxygen to achieve these saturations. We will proceed with a CT angiogram as he is sufficiently stable to undergo the testing. Pneumonia. This is day #2 of broad-spectrum antibiotics. Temperature has responded. His white count remains low. Chronic obstructive pulmonary disease. The patient is on bronchodilator therapy but has persistent wheeze despite this. Agree with continuation of IV steroids. Fluid volume status. The patient is a bit more positive this morning, but it is difficult to assess his fluid volume status, as he is receiving blood products, he may benefit from diuresis. The decision may be clarified based on his CT angiogram. Abdominal distension. This has increased over the past 12 hours. The etiology is unclear. He is at risk for infectious diarrhea. Will obtain an abdominal CT while he is transferred to the radiology suite. Chronic lymphocytic leukemia, on tyrosine kinase inhibition. His hemoglobin is dropping consistent with medication effect as is his platelet count. Transfusion has been ordered. Deep vein thrombosis (DVT) prophylaxis is being addressed at this point with subcutaneous heparin and sequential hose. The patient's condition is critical. Prognosis is guarded. 46 minutes was spent in the provision of bedside critical care and coordination exclusive of procedure time. MARY
[2020-03-06] MEDS: SENOKOT S TAB PO SCH ×3 (09:00→21:10)
[2020-03-06] MEDS: BISACODYL 5 MG TAB PO PRN (09:46)
[2020-03-06] MEDS ORDERED: MOM 30ML SUSPENSION UDC PO ONE (12:00)
--- NOTE | 2020-03-06 12:18 | REP ---
Clinical: Shortness of breath. Comparison: 03/04/2020. Findings: Left lower lobe/retrocardiac consolidation with surrounding alveolar infiltrates and pleural effusion as well as mild right basilar atelectasis and small right pleural reaction noted. No pneumothorax. Mediastinum and cardiac silhouette are within normal limits and stable. Skeletal structures are intact. Impression: 1. Left lower lobe findings similar to prior examination. 2. Relatively new right basilar atelectasis and small right pleural reaction. Electronically Signed by Bryon Bravo MD 03/06/2020 12:10 P
[2020-03-06] MEDS: AZITHROMYCIN INJ 500 MG, VIAL MATE ADAPTER 1 EACH in D5W 250 ML IV SCH (13:31)
--- NOTE | 2020-03-06 13:48 | CCN ---
DATE: 03/06/2020 The patient is seen in the intensive care unit. This is hospital day #3, intensive care unit (ICU) day #3. He underwent extensive imaging yesterday afternoon. He is feeling somewhat improved this morning. His temperature is been down overnight. He is no longer experiencing any left-sided chest pain. There is some cough but little sputum production. He is now complaining of constipation. At bedside his temperature is 98, pulse rate 92, respirations 20, oxygen saturation 92% on 5 liters. Blood pressure 136/67. Input and output for the past 24 hours 4485 in, 2100 out. Since midnight 530 in, 550 out. At bedside he is ill appearing. His oral mucosa is pink and moist now. Neck is supple. Jugular veins are 1-2 cm distended. Carotid upstroke is brisk. There is no bruit. Heart sounds are regular, somewhat distant. Breath sounds are diminished but there is no appreciable wheezing today. Expiratory phase is prolonged. There is dullness to percussion in the left base. Abdomen is soft but full. There are some hypoactive bowel sounds. Extremities are cool but pulses are palpable. DIAGNOSTIC STUDIES: His sodium is 142, potassium 3.7, chloride 114, CO2 19, BUN 38, creatinine 1.62, glucose is 140. White cell count is 4.1, hemoglobin 8.3, hematocrit 23.8, platelet count is down to 66,000. CT of his chest and abdomen were reviewed as were the reports there is adenopathy and left lower lobe consolidation but no pulmonary embolism. From an infectious disease standpoint, cultures have been negative as has respiratory viral panel. On medications review, he is receiving vancomycin, azithromycin and piperacillin all day #3. Solu-Medrol and subcutaneous heparin. The primary problem requiring critical attention is acute hypoxic respiratory failure, oxygen requirement is improving. Will reduce his delivered oxygen flow rate and continue close monitoring his saturations. Left lower lobe pneumonia: He is responding to antibiotics. His temperature is improved. Thrombocytopenia: I suspect this is related to chemotherapy or the extent of his illness continue close monitoring of his counts. Chronic obstructive pulmonary disease: The patient has been counseled regarding smoking cessation and nebulized therapy with bronchodilators being administered. DVT prophylaxis being addressed with subcutaneous heparin. There was no pulmonary embolism on his chest CT. The patient's condition is critical. Prognosis is good for the acute illness. 56 minutes spent in the provision of bedside critical care and coordination and exclusion of any procedure time. HISTORY OF PRESENT ILLNESS Dictated
[2020-03-06 14:53] LABS: PLATELET COUNT, AUTOMATED 60 10^3/uL (150-450)
[2020-03-06 14:55] LABS: INR 1.07; PROTHROMBIN TIME 13.6 SECONDS (11.8-14.0)
[2020-03-06 14:56] LABS: PARTIAL THROMBOPLASTIN TIME 39.1 SECONDS (25.0-38.4)
[2020-03-06] MEDS ORDERED: ONDANSETRON 4MG/2ML VIAL IV PRN (15:00)
[2020-03-06 15:01] LABS: FIBRINOGEN 1216 MG/DL (221-452)
[2020-03-06 15:19] LABS: D-DIMER QUANT > 4000 ng/ml (<500)
[2020-03-06] MEDS ORDERED: ONDANSETRON 4MG/2ML VIAL IV ONE (15:30)
--- NOTE | 2020-03-06 17:44 | IPN ---
DATE: 03/06/2020 Per nursing, patient was able to be weaned off of the Vapotherm. Currently on 5 liters high flow nasal canula. Patient has not had a bowel movement, with persistent abdominal distention. CT abdomen and pelvis shows small bowel edema, likely infectious etiology cannot be ruled out. Mesenteric and periaortic adenopathy. Patient denies nausea and vomiting. No diarrhea. No fever or chills. Cough still productive of white sputum, but diminished. Shortness of breath has improved. Patient continues to have use of respiratory accessory muscles and some conversational dyspnea, but significantly better. Afebrile overnight. Telemetry unremarkable. Sinus rhythm, ventricular rate of 96. Temperature 97.3, maximum temperature (T-max) 98.7, pulse 96, sinus rhythm, respiratory 20, blood pressure 159/74, 91% high flow 5 liters. GENERAL: Patient is awake, alert, oriented to person, place and time, answering questions appropriately. Anicteric sclerae. No jaundice. Moist mucous membranes. Positive use of respiratory accessory muscles with 6-7 word conversational dyspnea. LUNGS: Diminished with crackles at the left base and wheezing bilaterally. Coarse breath sounds. HEART: S1, S2. Sinus rhythm. No murmurs, rubs or gallops. ABDOMEN: Distended, tense. Positive bowel sounds. EXTREMITIES: No cyanosis or clubbing. LABORATORY DATA: White count 4, hemoglobin 8.3, hematocrit 23.8, platelet count 66. Admission platelet count of 103. Sodium 142, potassium 3.7, chloride 114, bicarbonate 18, BUN 38, creatinine 1.62, glucose 140. IgG 258 low, IgA 41.5 low, IgM 6.4 low. ASSESSMENT AND PLAN: This is a 64-year-old male with a history of chronic lymphocytic leukemia (CLL) and chronic Imbruvica, actively smoking with a history of over a 30 pack year history of smoking, had a right upper lobe pneumonia in September with suspected common variable immunodeficiency, bladder cancer, presents with three day history of cough at home. Seen at his primary care physician with a 102 temperature, sent to [facility] and was admitted for one day with worsening hypoxia. Patient is not oxygen-dependent and was requiring Ventimask. On transfer to [facility], a CT chest, abdomen and pelvis showed left lower lobe pneumonia, mesenteric small bowel edema, infectious in etiology, cannot rule out vascular, with the following issues: 1. Sepsis, secondary to left lower lobe pneumonia. 2. Acute hypoxic respiratory failure. 3. Left lower lobe pneumonia. 4. Acute kidney injury secondary to sepsis. 5. Thrombocytopenia. 6. Anemia requiring 1 unit red blood cells transfusion. 7. 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 8. Active smoker. 9. Chronic obstructive pulmonary disease (COPD) exacerbation. 10. History of superficial bladder cancer. 11. Type 2 diabetes. 12. Hypertension. 13. Hypothyroidism. 14. Abdominal distension. 15. Vitamin D deficiency. 16. Thrombocytopenia Patient is improved with his hypoxia, currently weaned off the Vapotherm and only requiring high flow nasal canula, medically stable to transfer out of the intensive care unit (ICU). He will be continually monitored and supported with intravenous (IV) antibiotics broad-spectrum and supplemental oxygen to keep saturations at 90-92%. Patient due to receive IVIG to assist clearance of his infection due to low levels of IgG, IgA and IgM. Insurance Solicitor, Dr. Neri, as well as Dr. Avalos, implementation engineer, have all been consulted to assist in patient's management. His acute kidney injury has improved with IV fluid hydration. However, he remains with elevated BNP. Echocardiogram done in October showed a normal systolic and diastolic function with ejection fraction of 60%. His diet can be advanced, as there is no risk of worsening hypoxic failure. At this time, patient is medically stable for transferring to medical/surgical floor. CT chest had no pulmonary embolism (PE) on exam. Will continue to monitor patient's abdominal distention. Bowel regimen has been provided. If patient develops worsening abdominal distention, will recheck a lactic acid and recheck a KUB, surgery consult if needed. thrombocytopenia will be evaluated with DIC panel, and HIT panel, but most likely due to sepsis. Currently, despite low platelets, no signs of bleeding, but will discontinue heparin until HIT panel is negative. compression stockings for now for DVT prophylaxis. avoid antiplatelet or anticoagulants due to low platelets. no acute indication for platelet transfusion. [facility]
[2020-03-06] MEDS: LIDOCAINE 5% (LIDODERM) PATCH TD SCH (21:09)
[2020-03-06] MEDS: PRAVASTATIN 20 MG TAB PO SCH (21:09)
[2020-03-07] VITALS (10 sets, daily range): BP systolic 111–166; BP diastolic 71–84
[2020-03-07] MEDS: LEVALBUTEROL 1.25 MG/0.5 ML CONCENTRATE NEB INH SCH ×6 (04:00→23:15)
[2020-03-07] MEDS: IPRATROPIUM 0.02% SOLN 0.5MG 2.5ML NEB INH SCH ×6 (04:00→23:15)
[2020-03-07] MEDS: methylPREDNISolone 125MG 2ML VIAL IV SCH ×4 (04:32→22:20)
[2020-03-07] MEDS: PIPERACILLIN/TAZOBACTAM SOD 4.5 GM in D5W MINI-BAG PLUS 50 ML IV SCH ×4 (04:33→22:21)
[2020-03-07] MEDS: LEVOTHYROXINE 137MCG TABLET (0.137MG) PO SCH (06:28)
[2020-03-07] MEDS: MOM 30ML SUSPENSION UDC PO PRN ×2 (06:28→11:58)
[2020-03-07] MEDS: VANCOMYCIN HCL 1,000 MG, VIAL MATE ADAPTER 1 EACH in D5W 250 ML IV SCH (06:30)
[2020-03-07 06:37] LABS: HEMATOCRIT 22.1 % (42.0-52.0); HEMOGLOBIN 7.7 g/dl (13.5-17.5); MEAN CORPUSCULAR HEMOGLOBIN 34.1 pg (27.0-33.0); MEAN CORPUSCULAR HGB CONC 34.8 g/dl (32.0-36.5); MEAN CORPUSCULAR VOLUME 97.8 fl (80.0-96.0); RED BLOOD COUNT 2.26 10^6/uL (4.30-6.10); WHITE BLOOD COUNT 2.6 10^3/uL (4.0-10.0)
[2020-03-07 06:41] LABS: PLATELET COUNT, AUTOMATED 48 10^3/uL (150-450)
[2020-03-07 06:50] LABS: CALCIUM LEVEL 6.3 MG/DL (8.8-10.2); CREATININE FOR GFR 1.57 MG/DL (0.70-1.30); GLOMERULAR FILTRATION RATE 47.3 (>49); POTASSIUM SERUM 3.9 MEQ/L (3.5-5.1); VANCOMYCIN LEVEL TROUGH 22.5 UG/ML (10.0-20.0)
[2020-03-07] MEDS: HumaLOG INSULIN (NovoLOG) PER UNIT SC SCH ×4 (08:35→20:54)
[2020-03-07] MEDS: **NOTE PATIENT COMMENT** MISC XX SCH (08:36)
[2020-03-07] MEDS: SENOKOT S TAB PO SCH ×2 (08:36→20:46)
[2020-03-07] MEDS: NICOTINE 14 MG/24 HR TRANSDERMAL TD SCH (08:36)
[2020-03-07] MEDS: VITAMIN D 1,000 INTERNATIONAL UNITS TABLET PO SCH (08:36)
[2020-03-07] MEDS: ASPIRIN 81 MG ENTERIC TAB PO SCH (08:36)
[2020-03-07] MEDS: oxyBUTYnin *DITROPAN XL* 5 MG TABCR PO SCH (08:38)
[2020-03-07] MEDS: SODIUM BICARBONATE 325 MG TAB PO SCH ×4 (08:38→20:46)
[2020-03-07] MEDS: BISACODYL 5 MG TAB PO PRN (11:58)
[2020-03-07] MEDS: guaiFENesin ER 600 MG TAB PO SCH ×2 (11:58→20:46)
--- NOTE | 2020-03-07 13:56 | IPN ---
DATE: 03/07/2020 SUBJECTIVE The patient says he is feeling better and ambulated from the bed to the bathroom with very minimal difficulty. He still has a cough but has decrease in sputum production to white thickened. He currently has had no fever or chills overnight. He is down to 4 liters nasal cannula saturating 90-95% off Vapotherm for the past 48 hours. No other issues. Tolerating his diet. Appetite is increased but not back to baseline. Still fatigued and not ambulating outside his room but slightly improved. He says that his energy is a little bit better today. OBJECTIVE PHYSICAL EXAMINATION VITALS: Temperature 98.6, pulse 92, respiratory rate 22, blood pressure 111/71, 90% on 4 liters nasal cannula. Generally, awake, alert, oriented times three. Answering questions appropriately. Pupils round and reactive. Extraocular muscles are intact. No use of respiratory accessory muscles. Tongue is midline. No jugular venous distention (JVD) or thyromegaly. Lungs: Diminished crackles at the left base. Significant expiratory wheezing. Heart: S1, S2, sinus rhythm. No murmurs, rubs, or gallops. Abdomen is distended, soft. Positive bowel sounds. Extremities: No cyanosis, clubbing or any pitting edema. LABORATORY DATA: White count 2.6, hemoglobin 7.7, hematocrit 22, platelet count 48,000, decreased from 103,000. Heparin induced thrombocytopenia panel is pending. [place] panel has been ordered. Sodium 143, potassium 3.9, chloride 115, bicarbonate 20, BUN 41, creatinine 1.57, glucose 167. Imaging studies: 03/06/2020 chest x-ray: Left lower lobe similar to prior exam. Right basilar atelectasis and small right pleural reaction. ASSESSMENT: This is a 64-year-old male with a history of chronic obstructive pulmonary disease (COPD), chronic lymphocytic leukemia (CLL) on chronic Imbruvica, actively smoking half a pack a day, 30-pack year history of smoking and had a right upper lobe pneumonia in September with suspected common variable immunodeficiency, bladder cancer. Presented to his primary care physician with a 2 to 3-day history of cough productive of white sputum, fever of 102. Patient was sent to [facility] emergency room was subsequently admitted due to acute onset of hypoxic respiratory failure requiring supplemental oxygen. Chest x-ray showed a left lower lobe pneumonia. He was treated with vancomycin and Zosyn and azithromycin due to chronic immunosuppression and currently on chemotherapy. Patient was sent to [facility] due to worsening hypoxia and was admitted to the ICU and required Vapotherm due to persistent hypoxia despite 15 liters of oxygen via Ventimask. CT chest, abdomen and pelvis showed left lower lobe pneumonia. Patient was able to be weaned off the Vapotherm after being treated for COPD exacerbation with IV Solu-Medrol. He did develop significant anemia requiring red blood cells (RBCs) transfusion and with low levels of immunoglobulins. Patient was given IVIG. Cashier Parking Lot and metal cans supervisor have both been consulted. IMPRESSION: Sepsis secondary to left lower lobe pneumonia acute hypoxic respiratory failure requiring supplemental oxygen weaned off Vapotherm. Left lower lobe pneumonia. Chronic immunosuppression acute kidney injury secondary to sepsis thrombocytopenia most likely secondary to sepsis and chemo HIT panel is pending. Anemia requiring one unit RBC transfusion with increased requirement. Common variable immunodeficiency with low immunoglobulin IgA, IgG, IgM, status post IVIG on 03/05/2020. Active smoker. 30-pack year history of smoking. Acute COPD exacerbation. History of superficial bladder cancer. Type 2 diabetes, hypertension, hypothyroidism. Ileus with abdominal distention CT showing bowel wall edema, Vitamin D deficiency. Metabolic acidosis most likely secondary to acute kidney injury. PLAN: The patient is continued on full supportive care. He had already received broad-spectrum antibiotics, vancomycin, Zosyn, and azithromycin. Sputum culture is negative with no organism seen. CT chest shows a left lower lobe pneumonia. Defer to Dr. Alarcon for de-escalation of antibiotics and we will consult in the morning. The patient had received IVIG due to common variable immunity deficiency and recurrent bacterial infections. The last one was in September. I appreciate Dr. Rivers's help and management currently with acute kidney injury renally dosing all medications. Still requiring supplemental oxygen 4 liters nasal cannula due to significant hypoxia. Patient is doing well with Solu- Medrol 60 IV every 5 hours, which we may taper in the morning and sodium bicarbonate for the metabolic acidosis for now. MTDD
[2020-03-07] MEDS: AZITHROMYCIN INJ 500 MG, VIAL MATE ADAPTER 1 EACH in D5W 250 ML IV SCH (14:08)
[2020-03-07] MEDS: D5W/0.9% SODIUM CHLORIDE 1,000 ML IV SCH ×2 (14:25→22:21)
[2020-03-07] MEDS: PRAVASTATIN 20 MG TAB PO SCH (20:47)
[2020-03-07] MEDS: LIDOCAINE 5% (LIDODERM) PATCH TD SCH (20:47)
[2020-03-07] MEDS ORDERED: VANCOMYCIN HCL 1,000 MG, VIAL MATE ADAPTER 1 EACH in D5W 250 ML IV SCH (23:00)
[2020-03-08] MEDS: IPRATROPIUM 0.02% SOLN 0.5MG 2.5ML NEB INH SCH ×5 (03:31→19:19)
[2020-03-08] MEDS: LEVALBUTEROL 1.25 MG/0.5 ML CONCENTRATE NEB INH SCH ×5 (03:31→19:19)
[2020-03-08] MEDS: PIPERACILLIN/TAZOBACTAM SOD 4.5 GM in D5W MINI-BAG PLUS 50 ML IV SCH ×4 (03:50→22:48)
[2020-03-08] MEDS: methylPREDNISolone 125MG 2ML VIAL IV SCH ×4 (03:50→22:47)
[2020-03-08] MEDS: LEVOTHYROXINE 137MCG TABLET (0.137MG) PO SCH (05:34)
[2020-03-08 06:00] VITALS: BP 164/71
[2020-03-08 07:07] LABS: HEMATOCRIT 29.5 % (42.0-52.0); MEAN CORPUSCULAR HEMOGLOBIN 32.7 pg (27.0-33.0); MEAN CORPUSCULAR HGB CONC 34.2 g/dl (32.0-36.5); MEAN CORPUSCULAR VOLUME 95.5 fl (80.0-96.0); RED BLOOD COUNT 3.09 10^6/uL (4.30-6.10); WHITE BLOOD COUNT 2.5 10^3/uL (4.0-10.0)
[2020-03-08 07:30] LABS: CALCIUM LEVEL 7.1 MG/DL (8.8-10.2); CREATININE FOR GFR 1.57 MG/DL (0.70-1.30); GLOMERULAR FILTRATION RATE 47.3 (>49); POTASSIUM SERUM 4.2 MEQ/L (3.5-5.1)
[2020-03-08 07:31] LABS: HEMOGLOBIN 10.1 g/dl (13.5-17.5); PLATELET COUNT, AUTOMATED 30 10^3/uL (150-450)
[2020-03-08] MEDS: HumaLOG INSULIN (NovoLOG) PER UNIT SC SCH ×4 (07:59→22:18)
[2020-03-08] MEDS: VITAMIN D 1,000 INTERNATIONAL UNITS TABLET PO SCH (08:04)
[2020-03-08] MEDS: guaiFENesin ER 600 MG TAB PO SCH ×2 (08:04→22:47)
[2020-03-08] MEDS: ASPIRIN 81 MG ENTERIC TAB PO SCH (08:04)
[2020-03-08] MEDS: SENOKOT S TAB PO SCH ×2 (08:04→22:47)
[2020-03-08] MEDS: **NOTE PATIENT COMMENT** MISC XX SCH (08:05)
[2020-03-08] MEDS: NICOTINE 14 MG/24 HR TRANSDERMAL TD SCH (08:05)
[2020-03-08] MEDS: oxyBUTYnin *DITROPAN XL* 5 MG TABCR PO SCH (08:08)
[2020-03-08] MEDS: SODIUM BICARBONATE 325 MG TAB PO SCH ×4 (08:08→22:47)
[2020-03-08] MEDS ORDERED: FUROSEMIDE 20MG/2ML VIAL (J1940) IV ONE (09:15)
--- NOTE | 2020-03-08 10:52 | REP ---
Clinical: Left lower lobe pneumonia. Technique: PA and lateral. Comparison: 03/06/2020. Findings: Left lower lobe consolidation and pleural effusion have increased from prior examination. Right hemithorax is clear. Visualized portions of the mediastinum and cardiac silhouette are stable and within normal limits. Skeletal structures are intact. Impression: Large left lower lobe consolidation and left pleural effusion appear increased from prior examination. Electronically Signed by Bryon Bravo MD 03/08/2020 10:43 A
[2020-03-08] MEDS ORDERED: FUROSEMIDE 40MG/4ML VIAL (J1940) IV ONE (11:00)
[2020-03-08 13:07] LABS: MYCOPLASMA PNEUMONIAE IgG 909 U/mL (0-99); MYCOPLASMA PNEUMONIAE IgM <770 U/mL (0-769)
[2020-03-08] MEDS: AZITHROMYCIN INJ 500 MG, VIAL MATE ADAPTER 1 EACH in D5W 250 ML IV SCH (13:59)
[2020-03-08 14:00] VITALS: BP 164/75
[2020-03-08 16:08] LABS: BODY FLUID CULTURE Not indicated. (.); ORGANISM ID Not indicated. (.); SPECIMEN SOURCE Urine (.); URINE STREP PNEUMONIAE ANTIGEN Negative (Negative)
[2020-03-08 22:00] VITALS: BP 152/84
[2020-03-08] MEDS: LIDOCAINE 5% (LIDODERM) PATCH TD SCH (22:47)
[2020-03-08] MEDS: PRAVASTATIN 20 MG TAB PO SCH (22:47)
[2020-03-09] VITALS (7 sets, daily range): BP systolic 152–179; BP diastolic 67–79
[2020-03-09] MEDS: LEVALBUTEROL 1.25 MG/0.5 ML CONCENTRATE NEB INH SCH ×7 (02:42→23:18)
[2020-03-09] MEDS: IPRATROPIUM 0.02% SOLN 0.5MG 2.5ML NEB INH SCH ×7 (02:42→23:18)
[2020-03-09] MEDS: methylPREDNISolone 125MG 2ML VIAL IV SCH ×2 (03:21→09:28)
[2020-03-09] MEDS: PIPERACILLIN/TAZOBACTAM SOD 4.5 GM in D5W MINI-BAG PLUS 50 ML IV SCH ×2 (03:21→09:28)
[2020-03-09] MEDS: LEVOTHYROXINE 137MCG TABLET (0.137MG) PO SCH (06:44)
[2020-03-09 07:05] LABS: HEMATOCRIT 26.7 % (42.0-52.0); HEMOGLOBIN 9.2 g/dl (13.5-17.5); MEAN CORPUSCULAR HEMOGLOBIN 32.9 pg (27.0-33.0); MEAN CORPUSCULAR HGB CONC 34.5 g/dl (32.0-36.5); MEAN CORPUSCULAR VOLUME 95.4 fl (80.0-96.0); WHITE BLOOD COUNT 2.4 10^3/uL (4.0-10.0)
[2020-03-09 07:07] LABS: PLATELET COUNT, AUTOMATED 22 10^3/uL (150-450)
[2020-03-09 07:29] LABS: CALCIUM LEVEL 7.5 MG/DL (8.8-10.2); CREATININE FOR GFR 1.71 MG/DL (0.70-1.30); GLOMERULAR FILTRATION RATE 42.9 (>49); POTASSIUM SERUM 3.9 MEQ/L (3.5-5.1)
[2020-03-09] MEDS: HumaLOG INSULIN (NovoLOG) PER UNIT SC SCH ×4 (07:30→20:48)
[2020-03-09] MEDS: NICOTINE 14 MG/24 HR TRANSDERMAL TD SCH (09:00)
[2020-03-09] MEDS: SENOKOT S TAB PO SCH ×2 (09:27→20:37)
[2020-03-09] MEDS: VITAMIN D 1,000 INTERNATIONAL UNITS TABLET PO SCH (09:27)
[2020-03-09] MEDS: ASPIRIN 81 MG ENTERIC TAB PO SCH (09:27)
[2020-03-09] MEDS: guaiFENesin ER 600 MG TAB PO SCH ×2 (09:27→20:49)
[2020-03-09] MEDS: **NOTE PATIENT COMMENT** MISC XX SCH (09:28)
[2020-03-09] MEDS: oxyBUTYnin *DITROPAN XL* 5 MG TABCR PO SCH (09:32)
[2020-03-09] MEDS: SODIUM BICARBONATE 325 MG TAB PO SCH ×4 (09:36→20:49)
--- NOTE | 2020-03-09 10:08 | IPN ---
DATE OF SERVICE: 03/08/2020 SUBJECTIVE: The patient denies any fever or chills. Cough has improved. Expectorating a lot more of the white thick sputum. Says that it felt like a string and he was trying to expectorate them all day yesterday. Despite blood transfusion the patient says his shortness of breath has improved. He did receive a total of 3 units of leukocyte reduced red blood cell (RBC) during this admission with increased hemoglobin to 10 and hematocrit of 29. No bright red blood per rectum, melena or any black tarry stools. Creatinine is back to its baseline, 1.57. He denies nausea, vomiting, diarrhea, abdominal pain. Says that his abdominal distention has improved after he has had three bowel movements yesterday. He attempted to walk around the room yesterday, felt well until he sat down and then he had to catch his breath. The patient remains net positive balance. Intravenous (IV) fluids have been discontinued. He is tolerating his diet well. VITAL SIGNS: Temperature 97, pulse 74, respiratory rate 16, blood pressure 164/71, 88% on 4 liters nasal cannula. Generally, the patient is awake, alert, oriented times three. Answering questions appropriately. Moist mucous membranes. Appears his stated age. He now is able to speak about 8-9 words without conversational dyspnea. The patient has mild jugular venous distention (JVD). No thyromegaly or cervical lymphadenopathy. Lungs: Diminished breath sounds with crackles at the left base. Heart: S1, S2, sinus rhythm. No murmurs, rubs, or gallops. Abdomen is less distended. Positive bowel sounds times four quadrants. No rebound or guarding. No hepatosplenomegaly. No abdominal bruits. Extremities: Trace edema bilateral lower extremities. LABORATORY DATA: White count 2.5, hemoglobin 10, hematocrit 29, platelet count of 30. Admission platelet count was 125 to 167. Heparin induced thrombocytopenia panel is pending. Sodium 142 potassium 4.2, chloride 113, bicarbonate 22, BUN 45, creatinine 1.57, glucose of 158. MICROBIOLOGY: Respiratory panel negative. Blood culture no growth after 72 hours. Sputum culture no growth. IMAGING STUDIES: Chest x-ray 03/06/2020: Left lower lobe basilar infiltrate unchanged from prior exam, new right basilar atelectasis, small right pleural reaction. CT abdomen and pelvis: Splenomegaly, mesenteric paraaortic adenopathy, small bowel wall edema, vascular etiology cannot be ruled out, other findings as above. ASSESSMENT AND PLAN: This is a 64-year-old male with a history of chronic lymphocytic leukemia (CLL) seen at the [facility], active smoking, 30-pack year history, right upper lobe pneumonia in September with common variable immunodeficiency, bladder cancer presented to his primary care physician with a 2-3 day history of cough productive of sputum, fever at home of 100, but found to be 102 at his primary care doctor's appointment. The patient was sent to [facility]. He was subsequently admitted for acute onset of hypoxic respiratory failure requiring supplemental oxygen and a new left lower lobe pneumonia treated with vancomycin, Zosyn, azithromycin due to chronic immunosuppression and currently on chemotherapy with Imbruvica. The patient was subsequently transferred to [facility] due to worsening hypoxia, was seen to be using Ventimask 15 liters of oxygen on arrival by ambulance and continued to require oxygen was placed Vapotherm. CT chest, abdomen, and pelvis had no new findings aside from lymphadenopathy and left lower lobe pneumonia. The patient was weaned off Vapotherm and transferred to medical-surgical floor being treated for acute chronic obstructive pulmonary disease (COPD) exacerbation, left lower lobe pneumonia, status post intravenous immunoglobulin (IVIG) for common variable immunodeficiency and RBC transfusion due to significant anemia. Managed Services Consultant and tree farmer have both been consulted. The patient had been noted to have worsening thrombocytopenia. Heparin induced panel is pending. The patient has been worked up for disseminated intravascular coagulation (DIC) and currently being treated for sepsis. IMPRESSION: 1. Sepsis secondary to left lower lobe pneumonia with acute hypoxic respiratory failure requiring supplemental oxygen. The patient currently is on broad-spectrum antibiotics. Sputum culture is negative. Blood cultures are negative. He is improving clinically and down to 4 liters nasal cannula from Vapotherm on arrival to intensive care unit (ICU). 2. CLL with anemia and thrombocytopenia. Most likely related to sepsis and possible chemotherapy. HIT has been sent to rule out heparin-induced thrombocytopenia. Managed Services Consultant, Dr. Rivers, will advise if anything else should be done. At this time, I will also check for DIC, continue with full supportive care for now. He did receive IVIG for assistance in clearing this infection since IgA and IgM have been low during this recent check. 3. Chronic kidney disease, stage III, currently at his baseline creatinine. 4. Fluid overload secondary blood transfusion and positive balance. Brain natriuretic peptide (BNP) is elevated at 1533. Still hypoxic at 88%. Will recheck a chest x-ray this morning. Decide if patient needs a little diuresis with a dose Lasix. 5. Abdominal distention with ileus, significantly improved. Had bowel movements yesterday and says that he feels much better. Abdomen is less distended and currently moving his bowels. Ambulation is encouraged but says that he is still short of breath when he walks from the bedroom to the window and back. 6. Active smoking. The patient has been counseled about stopping smoking. He has more than 30-pack year history of smoking. Currently still be treated for COPD exacerbation. 7. Acute COPD exacerbation. Currently intravenous Solu-Medrol 60 IV every 6 hours. MTDD
--- NOTE | 2020-03-09 10:41 | REP ---
Clinical: Evaluate consolidation/effusion. Comparison: 03/05/2020. Findings: Consolidation involving the left lower lobe demonstrates a very minimal improvement as compared to the prior examination with small associated left pleural effusion. Minimal atelectasis in the posterior segments of the right upper lobe and right lower lobe may be slightly improved and a small rounded 11 mm nodule is now apparent in the posterior right lower lobe (image 80) which was previously obscured by solid aeration. Mild reactive mediastinal lymph nodes are suggested without significant adenopathy. No pneumothorax. Underlying emphysematous changes noted. The mediastinum demonstrates stable atherosclerotic disease of the thoracic aorta and coronary arteries without aortic aneurysm or cardiomegaly. No pericardial effusion. Osseous structures are intact. Impression: 1. Large left lower lobe consolidation now demonstrating minimal aeration to the apical segment, and small/moderate left pleural effusion minimally improved. 2. Mildly decreased posterior right upper lobe and right lower lobe atelectasis. 3. 11 mm nodule in the posterior right lower lobe is now identified which may have been previously obscured by consolidation. Electronically Signed by Bryon Bravo MD 03/09/2020 10:33 A
[2020-03-09 12:31] LABS: HEMATOCRIT 27.7 % (42.0-52.0); HEMOGLOBIN 9.4 g/dl (13.5-17.5); MEAN CORPUSCULAR HEMOGLOBIN 32.6 pg (27.0-33.0); MEAN CORPUSCULAR HGB CONC 33.9 g/dl (32.0-36.5); MEAN CORPUSCULAR VOLUME 96.2 fl (80.0-96.0); RED BLOOD COUNT 2.88 10^6/uL (4.30-6.10)
[2020-03-09 12:34] LABS: PLATELET COUNT, AUTOMATED 21 10^3/uL (150-450)
--- NOTE | 2020-03-09 13:06 | IPNPDOC ---
Text Note Date of Service The patient was seen on 03/09/20. NOTE Subjective: Patient is a 64-year-old male with a PMHx of CLL (on ibrutinib), Active smoker, RUL pneumonia (09/2018), Common variable immunodeficiency, Bladder CA , who presented to the hospital directly by his primary care provider with 2- 3 day history of productive cough and fever. Patient was admitted to [facility] for pneumonia, and was placed on broad-spectrum antibiotics and supplemental oxygen at 4 L. Atrial subsequent to transfer to [facility] for worsening hypoxia. Hematology and pulmonology were consult. During hospitalization, patient has received IVIG at the direction of oncology. Patient was seen and examined at the bedside. . Currently, patient reports that his breathing is doing better. He still reports a cough. Denies chest pain or palpitations. Has not experienced nausea, vomiting, abdominal pain, diarrhea, or urinary discomfort. Objective: Vitals (See below) General: Lying in bed, appears comfortable, awake / alert HEENT: NC, AT CVS: +S1S2 Lungs: Fair air entry b/l, -w/r/r Abdomen: Soft, ND, NT Extremities: - Edema, - Calf tenderness Assessment and plan: Sepsis - likely 2/2 LLL pneumonia - Patient reports that his breathing is doing better. Still reports a productive cough - Hemodynamically stable and afebrile - Leukopenia - Blood cultures 03/04: Negative; Sputum culture 03/04: Negative; Respiratory panel 03/04: Negative - CT chest 03/09: 1. Large left lower lobe consolidation now demonstrating minimal aeration to the apical segment, and small/moderate left pleural effusion minimally improved. 2. Mildly decreased posterior right upper lobe and right lower lobe atelectasis. 3. 11 mm nodule in the posterior right lower lobe is now identified which may have been previously obscured by consolidation. - Will consider thoracentesis - c/w Zosyn Acute COPD exacerbation - Currently on Solumedrol; will reduce dose - c/w inhaled therapy as ordered Acute hypoxic respiratory failure - likely 2/2 above - c/w supplemental oxygen CLL with anemia and thrombocytopenia - likely 2/2 sepsis / chemotherapy - Currently patient's platelet count has trended down - No evidence of bleeding / blood loss - s/p IVIG - Hematology / Oncology on consultation; appreciate their input Elevated Cr on CKD3 - Baseline Cr of 1.3 - 1.6 - Cr currently at 1.71 - Will avoid nephrotoxic medications - Will hold off on further diuretics at this time s/p Abdominal distention with ileus - Patient denies nausea, vomiting, abdominal pain; does report a bowel movement - Physical without tenderness - CT abdomen / pelvis 03/05: 1. Mesenteric and para-aortic adenopathy. 2. Likely small bowel wall edema. Likely infectious, however, vascular etiology cannot be ruled out by this exam. 3. Other findings as described above. Active smoking - Advised smoking cessation - c/w Nicotine patch DLP - c/w Pravastatin Hypothyroidism - c/w Levothyroxine Vitamin D deficiency - c/w supplementation DVT prophylaxis - c/w TEDs/Sequentials VS,Fishbone, I+O VS, Fishbone, I+O Laboratory Tests 03/09/20 06:14 03/09/20 12:10 Vital Signs Date Time Temp Pulse Resp B/P (MAP) Pulse Ox O2 Delivery O2 Flow Rate FiO2 03/09/20 09:00 4.0 03/09/20 06:50 152/68 (96) 03/09/20 06:00 97.9 63 19 94 Nasal Cannula 03/05/20 12:15 40 I&O- Last 24 Hours up to 6 AM 03/09/20 05:59 Intake Total 2325 ml Output Total 2900 ml Balance -575 ml MOHIT OQUENDO MD Mar 09, 2020 13:06
[2020-03-09 13:12] LABS: LYMPHOCYTES 75 % (16-44); MONOCYTES 1 % (0-5); NEUTROPHILS 24 % (28-66); PLATELET ESTIMATE MARKED DECREASE (NORMAL)
--- NOTE | 2020-03-09 14:29 | IPNPDOC ---
Date Seen The patient was evaluated on 03/09/20. Progress Note Hematology oncology Patient continues to have severe complications of left lower lung pneumonia. Status post intravenous, globulin. Patient has significant myelosuppression from acute illness. Platelet count down to 21,000 today. Lymphocytosis is noted as expected given his underlying chronic lymphocytic leukemia. Continue to hold Imbruvica. Patient diagnosed with positive legionella antibody in his urine New right pleural effusion noted. No contraindication for thoracentesis. Recommend 1 unit single donor platelet transfusion prior to procedure. Recommend further evaluation and treatment regarding legionella antibody positivity. May want to check with infectious disease regarding treatment VS, I&O, 24H, Michael[place] Vital Signs/I&O Vital Signs Date Time Temp Pulse Resp B/P (MAP) Pulse Ox O2 Delivery O2 Flow Rate FiO2 03/09/20 09:00 4.0 03/09/20 06:50 152/68 (96) 03/09/20 06:00 97.9 63 19 94 Nasal Cannula 03/05/20 12:15 40 I&O- Last 24 Hours up to 6 AM 03/09/20 06:00 Intake Total 2115 ml Output Total 2950 ml Balance -835 ml Laboratory Data 24H LABS Laboratory Tests 2 03/08/20 16:16: Bedside Glucose (Misc Panel) 219H 03/08/20 20:18: Bedside Glucose (Misc Panel) 201H 03/09/20 06:14: Nucleated Red Blood Cells % (auto) 0.0, Anion Gap 6L, Glomerular Filtration Rate 42.9L, Calcium Level 7.5L 03/09/20 11:21: Bedside Glucose (Misc Panel) 174H 03/09/20 12:10: Immature Granulocyte % (Auto) , Neutrophils (%) (Auto) , Neutrophils # (Auto) , Nucleated Red Blood Cells % (auto) 0.0, Neutrophils 24L, Lymphocytes (Manual) 75H, Monocytes (Manual) 1, Red Blood Cell Morphology NORMAL, Platelet Estimate MARKED DECREASE, Immature Platelet Fraction 10.4 CBC/BMP Laboratory Tests 03/09/20 06:14 03/09/20 12:10 Microbiology Microbiology 03/04/20 Respiratory Virus Panel (PCR) ([facility]) - Final, Complete 03/04/20 Blood Culture - Preliminary, Resulted No Growth after 72 hours. All specime... 03/04/20 Gram Stain - Final, Complete 03/04/20 Sputum Culture - Final, Complete 03/04/20 Blood Culture - Final, Complete NO GROWTH AFTER 5 DAYS MANUELA VÁSQUEZ MD Mar 09, 2020 14:29
[2020-03-09] MEDS: DOXYCYCLINE HYCLATE 100 MG in D5W MINI-BAG PLUS 100 ML IV SCH (15:46)
[2020-03-09 16:08] LABS: LEGIONELLA ANTIGEN URINE Positive (Negative)
[2020-03-09] MEDS: methylPREDNISolone 40MG 1ML VIAL IV SCH (18:00)
[2020-03-09] MEDS: PRAVASTATIN 20 MG TAB PO SCH (20:49)
[2020-03-09] MEDS: LIDOCAINE 5% (LIDODERM) PATCH TD SCH (20:49)
[2020-03-10] VITALS (8 sets, daily range): BP systolic 156–168; BP diastolic 68–71
[2020-03-10] MEDS: methylPREDNISolone 40MG 1ML VIAL IV SCH ×3 (02:58→21:11)
[2020-03-10] MEDS: DOXYCYCLINE HYCLATE 100 MG in D5W MINI-BAG PLUS 100 ML IV SCH ×2 (03:03→16:14)
[2020-03-10] MEDS: IPRATROPIUM 0.02% SOLN 0.5MG 2.5ML NEB INH SCH ×6 (03:58→23:34)
[2020-03-10] MEDS: LEVALBUTEROL 1.25 MG/0.5 ML CONCENTRATE NEB INH SCH ×6 (03:58→23:34)
[2020-03-10 05:43] LABS: HEMATOCRIT 26.4 % (42.0-52.0); HEMOGLOBIN 8.9 g/dl (13.5-17.5); MEAN CORPUSCULAR HEMOGLOBIN 32.4 pg (27.0-33.0); MEAN CORPUSCULAR HGB CONC 33.7 g/dl (32.0-36.5); RED BLOOD COUNT 2.75 10^6/uL (4.30-6.10)
[2020-03-10] MEDS: LEVOTHYROXINE 137MCG TABLET (0.137MG) PO SCH (05:46)
[2020-03-10 05:51] LABS: PLATELET COUNT, AUTOMATED 43 10^3/uL (150-450)
[2020-03-10 06:07] LABS: CALCIUM LEVEL 7.4 MG/DL (8.8-10.2); CREATININE FOR GFR 1.52 MG/DL (0.70-1.30); GLOMERULAR FILTRATION RATE 49.1 (>49); POTASSIUM SERUM 3.6 MEQ/L (3.5-5.1)
[2020-03-10 07:50] LABS: MAGNESIUM LEVEL 2.9 MG/DL (1.8-2.4); PHOSPHORUS LEVEL 3.7 MG/DL (2.5-4.9)
[2020-03-10] MEDS: NICOTINE 14 MG/24 HR TRANSDERMAL TD SCH (08:34)
[2020-03-10] MEDS: SENOKOT S TAB PO SCH ×2 (08:34→21:00)
[2020-03-10] MEDS: guaiFENesin ER 600 MG TAB PO SCH ×2 (08:34→21:10)
[2020-03-10] MEDS: VITAMIN D 1,000 INTERNATIONAL UNITS TABLET PO SCH (08:34)
[2020-03-10] MEDS: ASPIRIN 81 MG ENTERIC TAB PO SCH (08:35)
[2020-03-10] MEDS: oxyBUTYnin *DITROPAN XL* 5 MG TABCR PO SCH (08:35)
[2020-03-10] MEDS: **NOTE PATIENT COMMENT** MISC XX SCH (08:36)
[2020-03-10] MEDS: HumaLOG INSULIN (NovoLOG) PER UNIT SC SCH ×2 (08:39→11:59)
[2020-03-10] MEDS: SODIUM BICARBONATE 325 MG TAB PO SCH ×4 (10:22→21:10)
--- NOTE | 2020-03-10 10:49 | IPNPDOC ---
Text Note Date of Service The patient was seen on 03/10/20. NOTE Subjective: Patient is a 64-year-old male with a PMHx of CLL (on ibrutinib), Active smoker, RUL pneumonia (09/2018), Common variable immunodeficiency, Bladder CA , who presented to the hospital directly by his primary care provider with 2- 3 day history of productive cough and fever. Patient was admitted to [facility] for pneumonia, and was placed on broad-spectrum antibiotics and supplemental oxygen at 4 L. Atrial subsequent to transfer to [facility] for worsening hypoxia. Hematology and pulmonology were consult. During this hospitalization, patient has received IVIG at the direction of oncology. Patient was seen and examined at the bedside. Patient reports he is not experiencing any significant cough this morning. However, yesterday he did experience significant amount of cough that he was able to provide in the sample cup he denies chest pain or palpitations. Denies nausea, abdominal pain, diarrhea, or urinary discomfort. Objective: Vitals (See below) General: Lying in bed, remains comfortable, awake / alert HEENT: NC, AT CVS: +S1S2 Lungs: Fair air entry b/l, no evidence of wheezing or crackles Abdomen: Soft, nondistended, nontender Extremities: No evidence of edema, - Calf tenderness Assessment and plan: Sepsis - likely 2/2 LLL pneumonia / legionella pneumonia - Patient continues to require supplemental oxygen; reported to have significant expectoration yesterday - Hemodynamically stable and afebrile - Leukopenia - Blood cultures 03/04: Negative; Sputum culture 03/04: Negative; Respiratory panel 03/04: Negative - Legionella antigen positive; Legionella culture pending - CT chest 03/09: 1. Large left lower lobe consolidation now demonstrating minimal aeration to the apical segment, and small/moderate left pleural effusion minimally improved. 2. Mildly decreased posterior right upper lobe and right lower lobe atelectasis. 3. 11 mm nodule in the posterior right lower lobe is now identified which may have been previously obscured by consolidation. - Planned for left-sided thoracocentesis for removal of left-sided pleural effusion; once platelet count is greater than 50 - s/p Zosyn; Started Doxycycline on 03/09 (re: Legionella / Prolonged QTc) Acute COPD exacerbation - c/w solumedrol will again reduce dose - c/w inhaled therapy as ordered Acute hypoxic respiratory failure - likely 2/2 above - c/w supplemental oxygen CLL with anemia and thrombocytopenia - likely 2/2 sepsis / chemotherapy - Currently patient's platelet count has trended down - No evidence of bleeding / blood loss - s/p IVIG - Will transfuse platelets again to help improve count (re: thoracentesis) - Hematology / Oncology on consultation; appreciate their input Elevated Cr on CKD3 - Baseline Cr of 1.3 - 1.6 - Cr improved compared to yesterday - Will avoid nephrotoxic medications - Will hold off on further diuretics at this time s/p Abdominal distention with ileus - Patient denies nausea, vomiting, abdominal pain; does report a bowel movement - Physical without tenderness - CT abdomen / pelvis 03/05: 1. Mesenteric and para-aortic adenopathy. 2. Likely small bowel wall edema. Likely infectious, however, vascular etiology cannot be ruled out by this exam. 3. Other findings as described above. Active smoking - Advised smoking cessation - c/w Nicotine patch DLP - c/w Pravastatin Hypothyroidism - c/w Levothyroxine Vitamin D deficiency - c/w supplementation DVT prophylaxis - c/w TEDs/Sequentials VS,Fishbone, I+O VS, Fishbone, I+O Laboratory Tests 03/09/20 12:10 03/10/20 05:31 Vital Signs Date Time Temp Pulse Resp B/P (MAP) Pulse Ox O2 Delivery O2 Flow Rate FiO2 03/10/20 06:00 98.6 90 18 161/71 (101) 91 Nasal Cannula 4.0 03/05/20 12:15 40 I&O- Last 24 Hours up to 6 AM 03/10/20 05:59 Intake Total 1740 ml Output Total 3155 ml Balance -1415 ml MOHIT OQUENDO MD Mar 10, 2020 10:49
[2020-03-10 14:58] LABS: PH BODY FLUID 7.629 UNITS (NOT ESTABLISHED); SOURCE, BODY FLUID pH PLEURAL
[2020-03-10 15:04] LABS: APPEARANCE, BODY FLUID CLOUDY (CLEAR); PLEURAL FL COLOR RED (COLORLESS); SOURCE, BODY FLUID PLEURAL
--- NOTE | 2020-03-10 15:18 | REP ---
Chest x-ray: Two views. History: Post thoracentesis left side. Comparison chest x-ray: March 08, 2020. Findings: The patient is status post left thoracentesis. The left pleural effusion is improved. There are air bronchograms and there is considerable consolidation in the left lower lobe as well. There is no evidence of pneumothorax. There is mild plate-like atelectasis in the right base. Impression: Improved left pleural effusion. Persistent consolidation with air bronchograms left lower lobe. No complication seen. Electronically Signed by Blaise Niño MD 03/10/2020 03:09 P
[2020-03-10 15:23] LABS: AMYLASE, BODY FLUID 37 U/L (NOT ESTABLISHED); LDH, BODY FLUID 337 U/L (NOT ESTABLISHED); SOURCE, BODY FLUID AMYLASE PLEURAL; SOURCE, BODY FLUID GLUCOSE PLEURAL; SOURCE, BODY FLUID LDH PLEURAL; SOURCE, BODY FLUID TOT PROTEIN PLEURAL; TOTAL PROTEIN, BODY FLUID 2.5 G/DL (NOT ESTABLISHED)
--- NOTE | 2020-03-10 18:13 | REP ---
Ultrasound-guided thoracentesis The procedure was performed by REJI Garcia, under the direct supervision of Dr. Niño, The risks and benefits of the procedure were explained to the patient and informed consent was obtained both verbally and written. Directly prior to the start of the procedure, a formal timeout was completed in the exam room. Pleural fluid on the left lung zone was localized using ultrasound guidance. The skin was prepped and draped in a sterile fashion. 10 ml of 1% lidocaine 10 mg/ml was used as a local anesthetic. Using ultrasound guidance, an 8-Malagasy multi side-hole catheter was inserted and advanced into the fluid. 460 ml of blood tinged colored fluid was withdrawn in total, 100 ml were sent to the lab for analysis. The patient tolerated the procedure well and there were no immediate complications. After the appropriate amount of monitored convalescence, the patient was discharged from the department. Reviewed by REJI Hinson 03/10/2020 04:17 P Electronically Signed by Blaise Niño MD 03/10/2020 06:04 P
[2020-03-10] MEDS: PRAVASTATIN 20 MG TAB PO SCH (21:10)
[2020-03-10] MEDS: LIDOCAINE 5% (LIDODERM) PATCH TD SCH (21:11)
[2020-03-11] MEDS: IPRATROPIUM 0.02% SOLN 0.5MG 2.5ML NEB INH SCH ×5 (04:19→19:58)
[2020-03-11] MEDS: LEVALBUTEROL 1.25 MG/0.5 ML CONCENTRATE NEB INH SCH ×5 (04:19→19:57)
[2020-03-11] MEDS: DOXYCYCLINE HYCLATE 100 MG in D5W MINI-BAG PLUS 100 ML IV SCH (05:07)
[2020-03-11 06:00] VITALS: BP 157/67
[2020-03-11] MEDS: LEVOTHYROXINE 137MCG TABLET (0.137MG) PO SCH (06:25)
[2020-03-11 06:32] LABS: HEMATOCRIT 23.8 % (42.0-52.0); MEAN CORPUSCULAR HEMOGLOBIN 32.2 pg (27.0-33.0); MEAN CORPUSCULAR HGB CONC 32.8 g/dl (32.0-36.5); MEAN CORPUSCULAR VOLUME 98.3 fl (80.0-96.0); RED BLOOD COUNT 2.42 10^6/uL (4.30-6.10); WHITE BLOOD COUNT 1.9 10^3/uL (4.0-10.0)
[2020-03-11 06:34] LABS: HEMOGLOBIN 7.8 g/dl (13.5-17.5); PLATELET COUNT, AUTOMATED 45 10^3/uL (150-450)
[2020-03-11 06:57] LABS: CALCIUM LEVEL 7.1 MG/DL (8.8-10.2); CREATININE FOR GFR 1.4 MG/DL (0.70-1.30); POTASSIUM SERUM 3.7 MEQ/L (3.5-5.1)
[2020-03-11] MEDS: AUGMENTIN 875 MG TAB PO SCH ×2 (09:38→20:04)
[2020-03-11] MEDS: oxyBUTYnin *DITROPAN XL* 5 MG TABCR PO SCH (09:38)
[2020-03-11] MEDS: methylPREDNISolone 40MG 1ML VIAL IV SCH (09:38)
[2020-03-11] MEDS: ASPIRIN 81 MG ENTERIC TAB PO SCH (09:38)
[2020-03-11] MEDS: NICOTINE 14 MG/24 HR TRANSDERMAL TD SCH (09:38)
[2020-03-11] MEDS: guaiFENesin ER 600 MG TAB PO SCH ×2 (09:39→20:04)
[2020-03-11] MEDS: VITAMIN D 1,000 INTERNATIONAL UNITS TABLET PO SCH (09:39)
[2020-03-11] MEDS: SENOKOT S TAB PO SCH ×2 (09:39→20:04)
[2020-03-11] MEDS: SODIUM BICARBONATE 325 MG TAB PO SCH ×4 (09:39→20:06)
[2020-03-11] MEDS: **NOTE PATIENT COMMENT** MISC XX SCH (09:51)
[2020-03-11] MEDS ORDERED: predniSONE 20 MG TAB PO ONE (10:00)
--- NOTE | 2020-03-11 10:01 | IPNPDOC ---
Text Note Date of Service The patient was seen on 03/11/20. NOTE Subjective: Patient is a 64-year-old male with a PMHx of CLL (on ibrutinib), Active smoker, RUL pneumonia (09/2018), Common variable immunodeficiency, Bladder CA , who presented to the hospital directly by his primary care provider with 2- 3 day history of productive cough and fever. Patient was admitted to [facility] for pneumonia, and was placed on broad-spectrum antibiotics and supplemental oxygen at 4 L. Atrial subsequent to transfer to [facility] for worsening hypoxia. Hematology and pulmonology were consult. During this hospitalization, patient has received IVIG at the direction of oncology. Patient was seen and examined at the bedside. , Currently patient reports that her feeling fine. He still reports a productive cough. They have not cleared physical therapy. He denies any chest pain or palpitations. Denies nausea, vomiting, abdominal pain, diarrhea, or urinary discomfort. Objective: Vitals (See below) General: Lying in bed, appears to be comfortable, awake / alert HEENT: NC, AT CVS: +S1S2 Lungs: Fair entry appears to be fair bilaterally. Rhonchi appreciated at left lung base. No evidence of wheezing Abdomen: Abdomen remains soft without distention or tenderness Extremities: Lower extremities are without any edema, - Calf tenderness Assessment and plan: Sepsis - likely 2/2 LLL pneumonia / legionella pneumonia - Patient continues to require supplemental oxygen; reported to have significant expectoration yesterday - Hemodynamically stable and afebrile - Leukopenia - Blood cultures 03/04: Negative; Sputum culture 03/04: Negative; Respiratory panel 03/04: Negative - Legionella antigen positive; Legionella culture pending - CT chest 03/09: 1. Large left lower lobe consolidation now demonstrating minimal aeration to the apical segment, and small/moderate left pleural effusion minimally improved. 2. Mildly decreased posterior right upper lobe and right lower lobe atelectasis. 3. 11 mm nodule in the posterior right lower lobe is now identified which may have been previously obscured by consolidation. - s/p Thoracentesis 03/10: removal of 460cc of fluid - Will c/w Doxycyline (re: Legionella / Prolonged QTc), will transition to PO, will add Augmentin; s/p Zosyn Acute COPD exacerbation - No wheezing appreciated - Will DC solumedrol - Will start Prednisone today - c/w inhaled therapy as ordered Acute hypoxic respiratory failure - likely 2/2 above - c/w supplemental oxygen CLL with anemia and thrombocytopenia - likely 2/2 sepsis / chemotherapy - Currently patient's platelet count has trended down - No evidence of bleeding / blood loss - s/p IVIG - Hematology / Oncology on consultation; appreciate their input - Will trend H&H today and transfuse if required Elevated Cr on CKD3 - Baseline Cr of 1.3 - 1.6 - Cr improved compared to yesterday - Will avoid nephrotoxic medications - Will hold off on further diuretics at this time s/p Abdominal distention with ileus - Patient denies nausea, vomiting, abdominal pain; does report a bowel movement - Physical without tenderness - CT abdomen / pelvis 03/05: 1. Mesenteric and para-aortic adenopathy. 2. Likely small bowel wall edema. Likely infectious, however, vascular etiology cannot be ruled out by this exam. 3. Other findings as described above. Active smoking - Advised smoking cessation - c/w Nicotine patch DLP - c/w Pravastatin Hypothyroidism - c/w Levothyroxine Vitamin D deficiency - c/w supplementation DVT prophylaxis - c/w TEDs/Sequentials Disposition: - Awaiting PT / OT clearance - Anticipate DC within 24-48 hours VS,Fishbone, I+O VS, Fishbone, I+O Laboratory Tests 03/11/20 05:55 Vital Signs Date Time Temp Pulse Resp B/P (MAP) Pulse Ox O2 Delivery O2 Flow Rate FiO2 03/11/20 06:00 99.1 96 19 157/67 (97) 89 Nasal Cannula 1.0 03/05/20 12:15 40 I&O- Last 24 Hours up to 6 AM 03/11/20 06:00 Intake Total 1090 ml Output Total 850 ml Balance 240 ml MOHIT OQUENDO MD Mar 11, 2020 10:01
[2020-03-11 12:17] LABS: HEMATOCRIT 26.1 % (42.0-52.0); HEMOGLOBIN 8.7 g/dl (13.5-17.5)
[2020-03-11 14:00] VITALS: BP 164/72
[2020-03-11] MEDS: DOXYCYCLINE HYCLATE 100MG TABLET PO SCH (20:04)
[2020-03-11] MEDS: PRAVASTATIN 20 MG TAB PO SCH (20:04)
[2020-03-11] MEDS: LIDOCAINE 5% (LIDODERM) PATCH TD SCH (20:04)
[2020-03-11 22:00] VITALS: BP 133/68
[2020-03-12] VITALS (12 sets, daily range): BP systolic 128–177; BP diastolic 62–76
[2020-03-12] MEDS: LEVALBUTEROL 1.25 MG/0.5 ML CONCENTRATE NEB INH SCH ×7 (00:12→23:51)
[2020-03-12] MEDS: IPRATROPIUM 0.02% SOLN 0.5MG 2.5ML NEB INH SCH ×7 (00:12→23:51)
[2020-03-12] MEDS: LEVOTHYROXINE 137MCG TABLET (0.137MG) PO SCH (05:46)
[2020-03-12 08:05] LABS: HEMATOCRIT 22.9 % (42.0-52.0); HEMOGLOBIN 7.4 g/dl (13.5-17.5); MEAN CORPUSCULAR HEMOGLOBIN 32.6 pg (27.0-33.0); MEAN CORPUSCULAR HGB CONC 32.3 g/dl (32.0-36.5); MEAN CORPUSCULAR VOLUME 100.9 fl (80.0-96.0); RED BLOOD COUNT 2.27 10^6/uL (4.30-6.10); WHITE BLOOD COUNT 1.7 10^3/uL (4.0-10.0)
[2020-03-12 08:14] LABS: PLATELET COUNT, AUTOMATED 39 10^3/uL (150-450)
[2020-03-12 08:17] LABS: CALCIUM LEVEL 7.7 MG/DL (8.8-10.2); CREATININE FOR GFR 1.45 MG/DL (0.70-1.30); GLOMERULAR FILTRATION RATE 51.8 (>49); MAGNESIUM LEVEL 2.3 MG/DL (1.8-2.4); POTASSIUM SERUM 3.7 MEQ/L (3.5-5.1)
[2020-03-12 08:43] LABS: LYMPHOCYTES 86 % (16-44); NEUTROPHILS 14 % (28-66)
[2020-03-12 08:44] LABS: PLATELET ESTIMATE DECREASED (NORMAL)
[2020-03-12] MEDS: SENOKOT S TAB PO SCH ×2 (09:00→21:00)
[2020-03-12] MEDS: NICOTINE 14 MG/24 HR TRANSDERMAL TD SCH (09:00)
[2020-03-12] MEDS: SODIUM BICARBONATE 325 MG TAB PO SCH ×2 (09:37→14:48)
[2020-03-12] MEDS: VITAMIN D 1,000 INTERNATIONAL UNITS TABLET PO SCH (09:37)
[2020-03-12] MEDS: ASPIRIN 81 MG ENTERIC TAB PO SCH (09:37)
[2020-03-12] MEDS: oxyBUTYnin *DITROPAN XL* 5 MG TABCR PO SCH (09:38)
[2020-03-12] MEDS: AUGMENTIN 875 MG TAB PO SCH ×2 (09:38→21:34)
[2020-03-12] MEDS: **NOTE PATIENT COMMENT** MISC XX SCH (09:38)
[2020-03-12] MEDS: predniSONE 20 MG TAB PO SCH (09:38)
[2020-03-12] MEDS: DOXYCYCLINE HYCLATE 100MG TABLET PO SCH ×2 (09:38→21:34)
[2020-03-12] MEDS: guaiFENesin ER 600 MG TAB PO SCH ×2 (09:38→21:34)
--- NOTE | 2020-03-12 11:02 | IPNPDOC ---
Text Note Date of Service The patient was seen on 03/12/20. NOTE Subjective: Patient is a 64-year-old male with a PMHx of CLL (on ibrutinib), Active smoker, RUL pneumonia (09/2018), Common variable immunodeficiency, Bladder CA , who presented to the hospital directly by his primary care provider with 2- 3 day history of productive cough and fever. Patient was admitted to [facility] for pneumonia, and was placed on broad-spectrum antibiotics and supplemental oxygen at 4 L. Atrial subsequent to transfer to [facility] for worsening hypoxia. Hematology and pulmonology were consult. During this hospitalization, patient has received IVIG at the direction of oncology. Patient was seen and examined at the bedside. Patient reports his breathing is doing better. Denies any significant cough, chest pain or palpitations. Has not expense, nausea, vomiting, abdominal pain, diarrhea or discomfort with urination. Patient has yet to clear physical therapy. Objective: Vitals (See below) General: Lying in bed, appears to be comfortable, awake / alert, oriented 3 HEENT: NC, AT CVS: +S1S2 Lungs: No significant wheezing, crackles or rhonchi could be appreciated. There does appear to be fair air entry bilaterally with slight diminishment of the left lower lung field Abdomen: Abdomen is without any distention tenderness and does appear to be soft Extremities: No edema is appreciated at bilateral lower extremities, - Calf tenderness Assessment and plan: Sepsis - likely 2/2 LLL pneumonia / legionella pneumonia - Patient reports improvement of his cough, but still requiring supplemental oxygen - Hemodynamically stable and afebrile - Blood cultures 03/04: Negative; Sputum culture 03/04: Negative; Respiratory panel 03/04: Negative - Legionella antigen positive; Legionella culture pending - CT chest 03/09: 1. Large left lower lobe consolidation now demonstrating minimal aeration to the apical segment, and small/moderate left pleural effusion minimally improved. 2. Mildly decreased posterior right upper lobe and right lower lobe atelectasis. 3. 11 mm nodule in the posterior right lower lobe is now identified which may have been previously obscured by consolidation. - s/p Thoracentesis 03/10: removal of 460cc of fluid - c/w Doxycycline (re: Legionella / Prolonged QTc) and Augmentin; s/p Zosyn - Patient will continue to work with physical therapy and will likely be discharged home with oxygen Acute COPD exacerbation - No wheezing appreciated - c/w Prednisone; s/p Solumedrol - c/w inhaled therapy as ordered Acute hypoxic respiratory failure - likely 2/2 above - c/w supplemental oxygen CLL with anemia and thrombocytopenia - likely 2/2 sepsis / chemotherapy - On account appears to have remained stable after the transfusions - No evidence of bleeding / blood loss - s/p IVIG - Hematology / Oncology on consultation; appreciate their input - Will transfuse 2 units of PRBC today Elevated Cr on CKD3 - Baseline Cr of 1.3 - 1.6 - Cr improved compared to yesterday - Will avoid nephrotoxic medications - Hold off further diuresis at this time Hypernatremia - Encourage more PO intake s/p Abdominal distention with ileus - Patient denies nausea, vomiting, abdominal pain; does report a bowel movement - Physical without tenderness - CT abdomen / pelvis 03/05: 1. Mesenteric and para-aortic adenopathy. 2. Likely small bowel wall edema. Likely infectious, however, vascular etiology cannot be ruled out by this exam. 3. Other findings as described above. Active smoking - Advised smoking cessation - c/w Nicotine patch DLP - c/w Pravastatin Hypothyroidism - c/w Levothyroxine Vitamin D deficiency - c/w supplementation DVT prophylaxis - c/w TEDs/Sequentials Disposition: - Awaiting PT / OT clearance - Anticipate DC within 24-48 hours VS,Fishbone, I+O VS, Fishbone, I+O Laboratory Tests 03/11/20 12:05 03/12/20 07:26 Vital Signs Date Time Temp Pulse Resp B/P (MAP) Pulse Ox O2 Delivery O2 Flow Rate FiO2 03/12/20 06:00 98.8 95 20 137/62 (87) 91 High Flow Cannula 2.0 I&O- Last 24 Hours up to 6 AM 03/12/20 06:00 Intake Total 1900 ml Output Total 1725 ml Balance 175 ml MOHIT OQUENDO MD Mar 12, 2020 11:02
[2020-03-12] MEDS: PRAVASTATIN 20 MG TAB PO SCH (21:34)
[2020-03-12] MEDS: LIDOCAINE 5% (LIDODERM) PATCH TD SCH (21:35)
[2020-03-13] MEDS: IPRATROPIUM 0.02% SOLN 0.5MG 2.5ML NEB INH SCH ×3 (03:38→11:16)
[2020-03-13] MEDS: LEVALBUTEROL 1.25 MG/0.5 ML CONCENTRATE NEB INH SCH ×3 (03:38→11:16)
[2020-03-13] MEDS: LEVOTHYROXINE 137MCG TABLET (0.137MG) PO SCH (05:46)
[2020-03-13 06:00] VITALS: BP 168/64
[2020-03-13 06:30] LABS: HEMATOCRIT 28.7 % (42.0-52.0); MEAN CORPUSCULAR HEMOGLOBIN 31.8 pg (27.0-33.0); MEAN CORPUSCULAR HGB CONC 33.8 g/dl (32.0-36.5); MEAN CORPUSCULAR VOLUME 94.1 fl (80.0-96.0); RED BLOOD COUNT 3.05 10^6/uL (4.30-6.10); WHITE BLOOD COUNT 1.5 10^3/uL (4.0-10.0)
[2020-03-13 07:18] LABS: HEMOGLOBIN 9.7 g/dl (13.5-17.5); PLATELET COUNT, AUTOMATED 31 10^3/uL (150-450)
[2020-03-13 07:22] LABS: ANISOCYTOSIS 1+; ATYPICAL LYMPH 1 % (0-5); LYMPHOCYTES 76 % (16-44); MONOCYTES 3 % (0-5); NEUTROPHILS 20 % (28-66); PLATELET ESTIMATE MARKED DECREASE (NORMAL); SMUDGE CELLS 1+
[2020-03-13 07:29] LABS: CALCIUM LEVEL 7.3 MG/DL (8.8-10.2); CREATININE FOR GFR 1.39 MG/DL (0.70-1.30); GLOMERULAR FILTRATION RATE 54.4 (>49); MAGNESIUM LEVEL 2.1 MG/DL (1.8-2.4); POTASSIUM SERUM 3.8 MEQ/L (3.5-5.1)
[2020-03-13] MEDS ORDERED: DOXY100T PO (08:51)
[2020-03-13] MEDS ORDERED: PRED10TA2 PO (08:51)
[2020-03-13] MEDS ORDERED: AMOX875T2 PO (08:51)
[2020-03-13] MEDS ORDERED: amLODIPine 10 MG TAB PO SCH (09:00)
[2020-03-13] MEDS: NICOTINE 14 MG/24 HR TRANSDERMAL TD SCH (09:00)
[2020-03-13] MEDS: SENOKOT S TAB PO SCH (09:00)
--- NOTE | 2020-03-13 09:18 | DS.PDOC ---
Discharge Summary General Date of Admission Mar 04, 2020 at 12:59 Date of Discharge 03/13/2020 Discharge Summary PROCEDURES PERFORMED DURING STAY: [None]. ADMITTING DIAGNOSES / DISCHARGE DIAGNOSES: Sepsis - likely 2/2 LLL pneumonia / legionella pneumonia Acute COPD exacerbation Acute hypoxic respiratory failure - likely 2/2 above CLL with anemia and thrombocytopenia - likely 2/2 sepsis / chemotherapy Elevated Cr on CKD3 Hypernatremia s/p Abdominal distention with ileus Active smoking DLP Hypothyroidism Vitamin D deficiency DVT prophylaxis COMPLICATIONS/CHIEF COMPLAINT: Hypoxic Respiratory Failure. HISTORY OF PRESENT ILLNESS: Patient is a 64-year-old male with a PMHx of CLL (on ibrutinib), Active smoker, RUL pneumonia (09/2018), Common variable immunodeficiency, Bladder CA , who presented to the hospital directly by his primary care provider with 2-3 day history of productive cough and fever. Patient was admitted to [facility] for pneumonia, and was placed on broad-spectrum antibiotics and supplemental oxygen at 4 L. Atrial subsequent to transfer to [facility] for worsening hypoxia. Hematology and pulmonology were consult. During this hospitalization, patient has received IVIG at the direction of oncology. HOSPITAL COURSE: Sepsis - likely 2/2 LLL pneumonia / legionella pneumonia - Clinically appears to be improved, still requiring supplemental oxygen - Patient will be discharged home with supplemental oxygen - Hemodynamically stable and afebrile - Blood cultures 03/04: Negative; Sputum culture 03/04: Negative; Respiratory panel 03/04: Negative - Legionella antigen positive; Legionella culture pending - CT chest 03/09: 1. Large left lower lobe consolidation now demonstrating minimal aeration to the apical segment, and small/moderate left pleural effusion minimally improved. 2. Mildly decreased posterior right upper lobe and right lower lobe atelectasis. 3. 11 mm nodule in the posterior right lower lobe is now identified which may have been previously obscured by consolidation. - s/p Thoracentesis 03/10: removal of 460cc of fluid - c/w Doxycycline (re: Legionella / Prolonged QTc) and Augmentin; s/p Zosyn - will complete antibiotic therapy as an outpatient - Patient will continue to work with physical therapy and will likely be discharged home with oxygen - Patient has been instructed to follow-up with pulmonology within 7 days, as well as primary care Acute COPD exacerbation - No wheezing appreciated - c/w Prednisone - will complete taper as an outpatient; s/p Solumedrol - c/w inhaled therapy as ordered - Outpatient follow-up with pulmonology within 7 days Acute hypoxic respiratory failure - likely 2/2 above - c/w supplemental oxygen CLL with anemia and thrombocytopenia - likely 2/2 sepsis / chemotherapy - On account appears to have remained stable after the transfusions - No evidence of bleeding / blood loss - s/p IVIG - Hematology / Oncology on consultation; appreciate their input - Will have outpatient follow-up with oncology within 7 days Elevated Cr on CKD3 - Baseline Cr of 1.3 - 1.6 - Cr has approached baseline - Will avoid nephrotoxic medications - s/p diuresis Hypernatremia - improving - s/p Sodium bicarbonate tablets s/p Abdominal distention with ileus - Patient denies nausea, vomiting, abdominal pain; does report a bowel movement - Physical without tenderness - CT abdomen / pelvis 03/05: 1. Mesenteric and para-aortic adenopathy. 2. Likely small bowel wall edema. Likely infectious, however, vascular etiology cannot be ruled out by this exam. 3. Other findings as described above. Active smoking - Advised smoking cessation - c/w Nicotine patch DLP - c/w Pravastatin Hypothyroidism - c/w Levothyroxine Vitamin D deficiency - c/w supplementation DVT prophylaxis - c/w TEDs/Sequentials DISCHARGE MEDICATIONS: Please see below. ALLERGIES: Please see below. PHYSICAL EXAMINATION ON DISCHARGE: Vitals (See below) General: Lying in bed, appears to be comfortable, awake / alert, oriented 3 HEENT: NC, AT CVS: +S1S2 Lungs: No appreciable rhonchi, crackles or wheezing. Mildly diminished at LL lung field Abdomen: ND, NT and soft Extremities: No pitting edema, - Calf tenderness LABORATORY DATA: Please see below. ACTIVITY: [As tolerated]. DISCHARGE PLAN: Follow-up with Dr. Estephanie Neri and Dr. Rivers within 7 days Remained compliant with treatment plan and medications Return to the ER if you experience any problems DISPOSITION: Home with services DISCHARGE CONDITION: [Stable]. TIME SPENT ON DISCHARGE: 35 minutes. Vital Signs/I&Os Vital Signs Date Time Temp Pulse Resp B/P (MAP) Pulse Ox O2 Delivery O2 Flow Rate FiO2 03/13/20 09:00 82 84 Room Air 03/13/20 06:41 98.4 03/13/20 06:00 17 168/64 (98) 3.0 I&O- Last 24 Hours up to 6 AM 03/13/20 06:00 Intake Total 1474 ml Output Total 2875 ml Balance -1401 ml Laboratory Data Labs 24H Laboratory Tests 2 03/13/20 06:00: Neutrophils (%) (Auto) , Neutrophils # (Auto) , Nucleated Red Blood Cells % (auto) 0.0, Neutrophils 20L, Lymphocytes (Manual) 76H, Monocytes (Manual) 3, Atypical Lymphocytes 1, Anisocytosis 1+, Smudge Cells 1+, Platelet Estimate MARKED DECREASE, Anion Gap 9, Glomerular Filtration Rate 54.4, Calcium Level 7.3L, Magnesium Level 2.1 CBC/BMP Laboratory Tests 03/13/20 06:00 Microbiology Microbiology 03/10/20 Acid Fast Stain, Received Pending 03/10/20 Mycobacterial Culture, Received Pending 03/10/20 Fungal Smear, Received Pending 03/10/20 Fungal Culture, Received Pending 03/10/20 Gram Stain - Final, Complete 03/10/20 Body Fluid Culture - Final, Complete 03/09/20 Legionella Culture, Received Pending 03/04/20 Respiratory Virus Panel (PCR) ([facility]) - Final, Complete 03/04/20 Blood Culture - Final, Complete NO GROWTH AFTER 5 DAYS 03/04/20 Gram Stain - Final, Complete 03/04/20 Sputum Culture - Final, Complete 03/04/20 Blood Culture - Final, Complete NO GROWTH AFTER 5 DAYS Discharge Medications Scheduled Amlodipine Besylate (Amlodipine Besylate) 10 Mg Tablet, 10 MG PO DAILY, (Reported) Amoxicillin/Potassium Clav (Amox-Clav 875-125 mg Tablet) 1 Each Tablet, 875 MG PO BID Aspirin (Aspir 81) 81 Mg Tablet.dr, 81 MG PO DAILY, (Reported) Atorvastatin Calcium (Atorvastatin Calcium) 40 Mg Tablet, 40 MG PO DAILY, (Reported) GIVEN AT [facility] Cholecalciferol (Vitamin D3) (Vitamin D3) 1,000 Unit Tablet, 1,000 UNITS PO DAILY, (Reported) Doxycycline Hyclate (Doxycycline Hyclate) 100 Mg Tablet, 100 MG PO BID Ipratropium/Albuterol Sulfate (Iprat-Albut 0.5-3(2.5) mg/3 ml) 3 Ml Ampul.neb, 1 VIAL NEB QID, (Reported) Levothyroxine Sodium (Levothyroxine Sodium) 137 Mcg Tablet, 137 MCG PO DAILY, (Reported) Oxybutynin Chloride (Oxybutynin Chloride ER) 10 Mg Tab.er.24, 10 MG PO DAILY, (Reported) HOME MED Pantoprazole Sodium (Pantoprazole Sodium) 40 Mg Tablet.dr, 40 MG PO DAILY, (Reported) STARTED AT [facility] Pravastatin Sodium (Pravastatin Sodium) 40 Mg Tablet, 40 MG PO DAILY, (Reported) HOME MED Prednisone (Prednisone) 10 Mg Tablet, 10 MG PO TAPER Take 4 tabs daily x 3 days, then 3 tabs daily x 3 days, then 2 tabs daily x 3 days, then 1 tab daily x 3 days and stop Scheduled PRN Acetaminophen (Acetaminophen) 325 Mg Tablet, 650 MG PO Q4H PRN for PAIN, (Reported) Albuterol Sulfate (Ventolin Hfa) 18 Gm Hfa.aer.ad, 2 PUFF INH Q4H PRN for SHORTNESS OF BREATH, (Reported) Guaifenesin (Guaifenesin) 100 Mg/5 Ml Liquid, 10 ML PO Q4H PRN for COUGH, (Reported) Allergies Coded Allergies: ciprofloxacin (Verified Allergy, Intermediate, SWELLING, 10/10/19) latex (Verified Allergy, Intermediate, RASH, 10/10/19) MOHIT OQUENDO MD Mar 13, 2020 09:18
[2020-03-13 09:27] VITALS: BP 168/64
[2020-03-13] MEDS: ASPIRIN 81 MG ENTERIC TAB PO SCH (09:27)
[2020-03-13] MEDS: VITAMIN D 1,000 INTERNATIONAL UNITS TABLET PO SCH (09:27)
[2020-03-13] MEDS: predniSONE 20 MG TAB PO SCH (09:27)
[2020-03-13] MEDS: guaiFENesin ER 600 MG TAB PO SCH (09:27)
[2020-03-13] MEDS: AUGMENTIN 875 MG TAB PO SCH (09:28)
[2020-03-13] MEDS: DOXYCYCLINE HYCLATE 100MG TABLET PO SCH (09:28)
[2020-03-13] MEDS: oxyBUTYnin *DITROPAN XL* 5 MG TABCR PO SCH (09:28)
[2020-03-13] MEDS: **NOTE PATIENT COMMENT** MISC XX SCH (09:29)
--- NOTE | 2020-03-13 11:52 | IPNPDOC ---
Date Seen The patient was evaluated on 03/13/20. Progress Note Oncology Case discussed with Dr. Bruce No contraindications for discharge from a oncology standpoint Will require IV IgG in ~3 weeks time Recommend follow-up in office for blood count check later this week. VS, I&O, 24H, Fishbone Vital Signs/I&O Vital Signs Date Time Temp Pulse Resp B/P (MAP) Pulse Ox O2 Delivery O2 Flow Rate FiO2 03/13/20 09:30 93 90 Nasal Cannula 3.0 03/13/20 09:27 168/64 03/13/20 06:41 98.4 03/13/20 06:00 17 I&O- Last 24 Hours up to 6 AM 03/13/20 06:00 Intake Total 1474 ml Output Total 2875 ml Balance -1401 ml Laboratory Data 24H LABS Laboratory Tests 2 03/13/20 06:00: Neutrophils (%) (Auto) , Neutrophils # (Auto) , Nucleated Red Blood Cells % (auto) 0.0, Neutrophils 20L, Lymphocytes (Manual) 76H, Monocytes (Manual) 3, Atypical Lymphocytes 1, Anisocytosis 1+, Smudge Cells 1+, Platelet Estimate MARKED DECREASE, Anion Gap 9, Glomerular Filtration Rate 54.4, Calcium Level 7.3L, Magnesium Level 2.1 CBC/BMP Laboratory Tests 03/13/20 06:00 Microbiology Microbiology 03/10/20 Acid Fast Stain, Received Pending 03/10/20 Mycobacterial Culture, Received Pending 03/10/20 Fungal Smear, Received Pending 03/10/20 Fungal Culture, Received Pending 03/10/20 Gram Stain - Final, Complete 03/10/20 Body Fluid Culture - Final, Complete 03/09/20 Legionella Culture, Received Pending 03/04/20 Respiratory Virus Panel (PCR) ([facility]) - Final, Complete 03/04/20 Blood Culture - Final, Complete NO GROWTH AFTER 5 DAYS 03/04/20 Gram Stain - Final, Complete 03/04/20 Sputum Culture - Final, Complete 03/04/20 Blood Culture - Final, Complete NO GROWTH AFTER 5 DAYS MANUELA VÁSQUEZ MD Mar 13, 2020 11:52
[2020-03-16] MEDS ORDERED: FLUC10TA PO (14:51)
[2020-03-23] MEDS ORDERED: BIOTLIQ3 MT (09:28)
[2020-05-11] MEDS ORDERED: FLUC10TA PO (09:59)
[2020-05-19] MEDS ORDERED: IMBR1CAP PO (08:10)
[2020-05-19] MEDS ORDERED: B-12100021 PO (08:42)
[2020-06-18] MEDS ORDERED: LEVO150T7 PO (10:36)
[2020-07-21] MEDS ORDERED: ECOT81TA5 PO (09:13)
[2020-07-21] MEDS ORDERED: TRIA37.5 PO (09:24)
== END 2020-03-13 13:06 | disposition home or self-care (01) | DRG 871 ==
LOC: M ICU 12:59 → M MSPAV 03-06 14:50
PROVIDERS: ADMIT Student in an Organized Health Care Education/Training Program; ATTEND Internal Medicine
PROC: 30233N1 Transfusion of Nonautologous Red Blood Cells into Peripheral Vein, Percutaneous Approach (ICD-10-PCS; 2020-03-05)
PROC: 30233R1 Transfusion of Nonautologous Platelets into Peripheral Vein, Percutaneous Approach (ICD-10-PCS; 2020-03-09)
PROC: 0W9B3ZZ Drainage of Left Pleural Cavity, Percutaneous Approach (ICD-10-PCS; principal; 2020-03-10 14:30)
DX: A41.9 Sepsis, unspecified organism (principal); J18.9 Pneumonia, unspecified organism; J96.01 Acute respiratory failure with hypoxia; A48.1 Legionnaires' disease; J44.1 Chronic obstructive pulmonary disease with (acute) exacerbation; J44.0 Chronic obstructive pulmonary disease with (acute) lower respiratory infection; C91.10 Chronic lymphocytic leukemia of B-cell type not having achieved remission; D83.9 Common variable immunodeficiency, unspecified; K56.7 Ileus, unspecified; J90 Pleural effusion, not elsewhere classified; E87.0 Hyperosmolality and hypernatremia; D69.59 Other secondary thrombocytopenia; D64.81 Anemia due to antineoplastic chemotherapy; E87.71 Transfusion associated circulatory overload; E03.9 Hypothyroidism, unspecified; F17.200 Nicotine dependence, unspecified, uncomplicated; E55.9 Vitamin D deficiency, unspecified; N18.3 Chronic kidney disease, stage 3 (moderate); Z79.899 Other long term (current) drug therapy; Z79.82 Long term (current) use of aspirin; Z91.040 Latex allergy status; Z88.8 Allergy status to other drugs, medicaments and biological substances; C67.9 Malignant neoplasm of bladder, unspecified

== ENCOUNTER → 2020-03-30 | Outpatient (CLI) | payer MEDICARE, BC ==
[~2020-03-30] MED LIST changes: +ACET1TAB55 PO; +AMOX875T2 PO; +ATOR40TA75 PO; +B-12100021 PO; +BIOTLIQ3 MT; +D31000TA2 PO; +DOXY100T PO; +ECOT81TA5 PO; +FLUC10TA PO; +GUAI5EL PO; +IPRA0.00 NEB; +LEVO150T7 PO; +LOVE1INJ SC; +NORC1TAB7 PO; +OXYB5TAB10 PO; +PANT40TA29 PO; +PRED10TA2 PO; +TRIA37.5 PO
== END ==
LOC: M LAB 16:36
PROVIDERS: ATTEND Internal Medicine Hematology & Oncology
DX: C91.10 Chronic lymphocytic leukemia of B-cell type not having achieved remission (principal)

== ENCOUNTER 2020-03-31 09:20 | Outpatient (CLI) | payer MEDICARE, BC ==
[~2020-03-31] VITALS: Ht 167.6 cm; Wt 56.2 kg
[2020-03-31] VITALS (8 sets, daily range): BP systolic 121–148; BP diastolic 60–70
[~2020-03-31 09:20] MED LIST changes: +ACETAMINOPHEN TAB 650MG DOSE (2X325MG) PO SCH; -B-12100021 PO; -ECOT81TA5 PO; -LEVO150T7 PO; -NORC1TAB7 PO; -TRIA37.5 PO; +diphenhydrAMINE 25MG CAP PO SCH
[2020-05-11] MEDS ORDERED: FLUC10TA PO (09:59)
[2020-05-19] MEDS ORDERED: IMBR1CAP PO (08:10)
[2020-05-19] MEDS ORDERED: B-12100021 PO (08:42)
[2020-06-18] MEDS ORDERED: LEVO150T7 PO (10:36)
[2020-07-21] MEDS ORDERED: ECOT81TA5 PO (09:13)
[2020-07-21] MEDS ORDERED: TRIA37.5 PO (09:24)
== END 2020-03-31 14:00 | disposition home or self-care (01) ==
LOC: M INFU 09:20
PROVIDERS: ATTEND Internal Medicine Hematology & Oncology
DX: C91.10 Chronic lymphocytic leukemia of B-cell type not having achieved remission (principal)
CPT/HCPCS: 36430; 96372; J1442; P9016

== ENCOUNTER 2020-04-06 08:25 | Outpatient (CLI) | payer MEDICARE, BC ==
[~2020-04-06 08:25] MED LIST changes: -ACETAMINOPHEN TAB 650MG DOSE (2X325MG) PO SCH; -diphenhydrAMINE 25MG CAP PO SCH
[2020-04-06] MEDS ORDERED: IMMUNE GLOBULIN 10% 20GM 200ML BOTTLE (PRIVIGEN) (J1459 PER 500MG) ONE (08:44)
[2020-05-11] MEDS ORDERED: FLUC10TA PO (09:59)
[2020-05-19] MEDS ORDERED: IMBR1CAP PO (08:10)
[2020-05-19] MEDS ORDERED: B-12100021 PO (08:42)
[2020-06-18] MEDS ORDERED: LEVO150T7 PO (10:36)
[2020-07-21] MEDS ORDERED: ECOT81TA5 PO (09:13)
[2020-07-21] MEDS ORDERED: TRIA37.5 PO (09:24)
== END 2020-04-06 11:15 | disposition home or self-care (01) ==
LOC: M INFU 08:25
PROVIDERS: ATTEND Internal Medicine Hematology & Oncology
DX: C91.10 Chronic lymphocytic leukemia of B-cell type not having achieved remission (principal); D80.1 Nonfamilial hypogammaglobulinemia
CPT/HCPCS: 96365; 96366; 96372; J1442; J1459

== ENCOUNTER → 2020-04-09 | Outpatient (CLI) | payer MEDICARE, BC ==
[~2020-04-09] MED LIST changes: +B-12100021 PO; +ECOT81TA5 PO; +LEVO150T7 PO; +NORC1TAB7 PO; +TRIA37.5 PO
[2020-05-14 05:00] LABS: BASO % 0.2 % (0.0-1.0); HEMATOCRIT 29.9 % (42.0-52.0); HEMOGLOBIN 9.6 g/dl (13.5-17.5); LYMPH # 1.2 10^3/uL (1.5-5.0); LYMPH % 29.7 % (24.0-44.0); MEAN CORPUSCULAR HEMOGLOBIN 31.4 pg (27.0-33.0); MEAN CORPUSCULAR HGB CONC 32.1 g/dl (32.0-36.5); MEAN CORPUSCULAR VOLUME 97.7 fl (80.0-96.0); MONO # 0.2 10^3/uL (0.0-0.8); MONO % 3.7 % (0.0-5.0); NEUTROPHILS # 2.4 10^3/uL (1.5-8.5); NEUTROPHILS % 59.3 % (36.0-66.0); PLATELET COUNT, AUTOMATED 121 10^3/uL (150-450); RED BLOOD COUNT 3.06 10^6/uL (4.30-6.10); WHITE BLOOD COUNT 4.1 10^3/uL (4.0-10.0)
--- NOTE | 2020-05-28 13:16 | REP ---
CHEST X-RAY: 2-VIEWS HISTORY: Unavailable This report was delayed due to a malware attack on this facility. COMPARISON: None. FINDINGS: There is extensive pleuroparenchymal opacity in the left lower lobe consistent with left lower lobe collapse and/or infiltrate. There is a left perihilar opacity which is somewhat nodular in appearance 3 cm in greatest diameter. The right lung is well-inflated and free of infiltrate. The patient is rotated slightly to the left. IMPRESSION: Large pleuroparenchymal opacity left lower lobe suggestive of lobar collapse. A small quantity of left pleural fluid cannot be excluded. There is a 3.3 cm left perihilar mass-like density. Correlation with chest CT imaging is suggested. MTDD
== END ==
LOC: M RAD 09:26
PROVIDERS: ATTEND Internal Medicine Pulmonary Disease
DX: R91.8 Other nonspecific abnormal finding of lung field (principal); J18.9 Pneumonia, unspecified organism

== ENCOUNTER → 2020-05-04 | Outpatient (CLI) | payer MEDICARE, BC ==
[2020-05-04 10:52] LABS: BASO % 0.3 % (0.0-1.0); EOS # 0.2 10^3/uL (0.0-0.5); EOS % 2.5 % (0.0-3.0); HEMATOCRIT 28.2 % (42.0-52.0); HEMOGLOBIN 9.1 g/dl (13.5-17.5); LYMPH # 4.6 10^3/uL (1.5-5.0); LYMPH % 61.5 % (24.0-44.0); MEAN CORPUSCULAR HEMOGLOBIN 32.6 pg (27.0-33.0); MEAN CORPUSCULAR HGB CONC 32.3 g/dl (32.0-36.5); MEAN CORPUSCULAR VOLUME 101.1 fl (80.0-96.0); MONO # 1.2 10^3/uL (0.0-0.8); MONO % 15.5 % (0.0-5.0); NEUTROPHILS # 1.5 10^3/uL (1.5-8.5); NEUTROPHILS % 19.8 % (36.0-66.0); PLATELET COUNT, AUTOMATED 159 10^3/uL (150-450); RED BLOOD COUNT 2.79 10^6/uL (4.30-6.10); WHITE BLOOD COUNT 7.5 10^3/uL (4.0-10.0)
[2020-05-04 11:29] LABS: IMMUNOGLOBULIN M 62.6 MG/DL (40-230)
[2020-05-05 08:12] LABS: HAPTOGLOBIN 268 mg/dL (32-363)
== END ==
LOC: M LAB 08:27
PROVIDERS: ATTEND Internal Medicine Hematology & Oncology
DX: C91.10 Chronic lymphocytic leukemia of B-cell type not having achieved remission (principal)

== ENCOUNTER → 2020-05-28 | Outpatient (CLI) | payer MEDICARE, BC ==
--- NOTE | 2020-06-10 09:29 | REP ---
CHEST X-RAY: 2-VIEWS HISTORY: Pneumonia. COMPARISON CHEST X-RAY: 04/09/2020. FINDINGS: There is persistent consolidation and collapse in the left lower lobe with air bronchograms. There is some volume loss in the left hemithorax. These findings are unchanged from the most recent prior study of 04/09/2020. The posterior pleural angle and the posterior aspect of the hemidiaphragm are obscured on the lateral radiograph. The right lung is clear. The remainder of the left lung is clear. The heart is not enlarged. No significant bony abnormality. IMPRESSION: Persistent collapse and consolidation with air bronchograms in the left lower lobe. No new infiltrate is seen. MTDD
== END ==
LOC: M RAD 08:54
PROVIDERS: ATTEND Internal Medicine Pulmonary Disease
DX: J18.9 Pneumonia, unspecified organism (principal)

== ENCOUNTER → 2020-06-23 | Outpatient (CLI) | payer MEDICARE, BC ==
[~2020-06-23] MED LIST changes: -ECOT81TA5 PO; -TRIA37.5 PO
--- NOTE | 2020-06-28 11:03 | REP ---
DATE: 06/23/[address] CLINICAL: Abnormal lung findings. COMPARISON: 03/09/2020 TECHNIQUE: Axial noncontrast images from the thoracic inlet to the upper abdomen with coronal and sagittal reformations. FINDINGS: Current examination demonstrates 2 new nodular soft tissue lesions in the anterior left upper lobe measuring 10 mm and approximately 18 mm (images 35- 44). There is volume loss involving the left lower lobe with chronic appearing fibro-atelectatic changes and elements of chronic atelectasis suggested. Prominent mediastinal lymph nodes are again noted measuring up to approximately 15 mm short axis diameter. Bilateral lung roque demonstrate chronic interstitial changes and emphysematous disease with scattered chronic scarring and calcified granuloma. Further evaluation of the mediastinum demonstrates atherosclerotic changes to the thoracic aorta and coronary arteries. No pericardial effusion. Surrounding musculoskeletal structures demonstrate age-related changes without acute osseous abnormality. Upper abdomen demonstrates normal bilateral adrenal glands. IMPRESSION: 1. Two new suspicious areas of density in the left upper lobe measuring 10 mm and 18 mm represent change from 03/09/2020. 2. Chronic changes involving the left lower lobe causing volume loss. Chronic changes throughout the bilateral lung roque consistent with chronic obstructive pulmonary disease (COPD)/emphysematous disease and scattered scarring similar to prior examination. 3. Findings warrant short term 3 to 6 month follow up. MTDD
== END ==
LOC: M RAD 09:34
PROVIDERS: ATTEND Internal Medicine Pulmonary Disease
DX: R91.8 Other nonspecific abnormal finding of lung field (principal)

== ENCOUNTER 2020-07-07 11:23 | Emergency (ER) | payer MEDICARE, BC ==
[~2020-07-07] VITALS: Ht 167.6 cm; Wt 59.1 kg
[~2020-07-07 11:23] MED LIST changes: -NORC1TAB7 PO
--- NOTE | 2020-07-07 12:12 | REP ---
INDICATION: DYSPNEA/COUGH. COMPARISON: 05/28/2020. TECHNIQUE: SINGLE PORTABLE AP VIEW OF THE CHEST WAS PERFORMED. FINDINGS: Once again there is patchy parenchymal opacity in the left lung base compatible with atelectasis or infiltrate. This appears mildly improved compared to the prior study. The right lung is clear the heart is not significantly enlarged. There is calcification of the thoracic aorta. The mediastinal silhouette is unchanged. IMPRESSION: Patchy atelectasis or infiltrate left lung base has mildly improved since the prior study of 05/28/2020. <Electronically signed by Freddy Monterroso > 07/07/20 [id number]
--- NOTE | 2020-07-07 12:48 | REP ---
INDICATION: fall. COMPARISON: None. TECHNIQUE: Helical scanning is acquired and overlapping 2 mm high resolution axial images were generated and reviewed at bone and soft tissue window settings. Coronal and sagittal multiplanar re-formations images are generated. FINDINGS: There is no evidence of cervical spine element fracture. No skull base fracture is seen. Cervical vertebral body heights are preserved. Alignment is normal. Facet joints are normally aligned bilaterally at each cervical level on multiplanar re-formations images. There is no evidence of intraspinal or paraspinal hematoma. No extra vertebral abnormality is seen. There is reversal of the normal cervical lordosis. Advanced degenerative disc disease is seen at each level from C3-4 through C6-7. Posterior osteophytic ridging is seen at these levels. The there is diffuse disc bulging at C3-4 and C4-5 and to a lesser extent 5 6 and 6 7. There is neural foraminal narrowing on the left at C6-7, bilaterally at C5-6, and on the right at C4-5. Facet osteoarthritis is noted in the mid cervical spine bilaterally. Reactive sclerosis is seen associated with degenerative disc and facet changes. Extensive vascular calcification is noted. Emphysematous changes are noted in the lung apices bilaterally. IMPRESSION: Fairly advanced degenerative spondylosis changes. No traumatic abnormality noted.. <Electronically signed by Tarun Niño > 07/07/20 [id number]
--- NOTE | 2020-07-07 13:29 | REP ---
INDICATION: trauma. COMPARISON: Comparison portable chest x-rays from earlier this same date. TECHNIQUE: Four views. FINDINGS: There are nondisplaced transversely oriented fracture through the posterolateral right 9th and 10th ribs which appear acute. No other fracture is seen. No bony destructive lesion is seen. There is no evidence of pneumothorax or pulmonary contusion. IMPRESSION: Right posterior 9th and 10th lateral rib fractures, nondisplaced. <Electronically signed by Tarun Niño > 07/07/20 1909
[2020-07-07 13:45] VITALS: BP 158/75
[2020-07-07] MEDS ORDERED: NORC1TAB7 PO (13:52)
--- NOTE | 2020-07-08 08:00 | ECGEPIP ---
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
[2020-07-21] MEDS ORDERED: ECOT81TA5 PO (09:13)
[2020-07-21] MEDS ORDERED: TRIA37.5 PO (09:24)
== END 2020-07-07 14:33 | disposition home or self-care (01) ==
LOC: M ED 11:23
DX: S22.41XA Multiple fractures of ribs, right side, initial encounter for closed fracture (principal); W07.XXXA Fall from chair, initial encounter; Y92.099 Unspecified place in other non-institutional residence as the place of occurrence of the external cause; Y93.E5 Activity, floor mopping and cleaning; Y99.9 Unspecified external cause status; I45.10 Unspecified right bundle-branch block; E78.5 Hyperlipidemia, unspecified; I10 Essential (primary) hypertension; J44.9 Chronic obstructive pulmonary disease, unspecified; M50.30 Other cervical disc degeneration, unspecified cervical region; Z85.6 Personal history of leukemia; Z85.51 Personal history of malignant neoplasm of bladder; F50.2 Bulimia nervosa; F17.200 Nicotine dependence, unspecified, uncomplicated; M47.812 Spondylosis without myelopathy or radiculopathy, cervical region; Z79.82 Long term (current) use of aspirin; Z79.899 Other long term (current) drug therapy; Z88.1 Allergy status to other antibiotic agents; Z91.040 Latex allergy status

== ENCOUNTER → 2020-07-19 | Outpatient (REF) | payer MEDICARE, BC ==
[~2020-07-19] MED LIST changes: +ECOT81TA5 PO; +NORC1TAB7 PO; +TRIA37.5 PO
[2020-07-19 18:18] LABS: PLATELET COUNT, AUTOMATED 185 10^3/uL (150-450)
[2020-07-19 18:32] LABS: INR 0.92; PROTHROMBIN TIME 12.5 SECONDS (12.5-14.3)
[2020-07-19 18:33] LABS: PARTIAL THROMBOPLASTIN TIME 25.4 SECONDS (24.2-38.5)
== END ==
LOC: M LAB REF 16:49
PROVIDERS: ATTEND Internal Medicine Pulmonary Disease
DX: Z01.812 Encounter for preprocedural laboratory examination (principal); Z79.01 Long term (current) use of anticoagulants

== ENCOUNTER → 2020-08-13 | Outpatient (CLI) | payer MEDICARE, BC | LOC: M LABSMTC 10:39 | PROVIDERS: ATTEND Anesthesiology | DX: Z01.812 Encounter for preprocedural laboratory examination (principal); Z20.828 Contact with and (suspected) exposure to other viral communicable diseases ==

== ENCOUNTER 2020-08-18 06:04 | Day surgery (SDC) | payer MEDICARE, BC ==
[~2020-08-18] VITALS: Ht 167.6 cm; Wt 60.0 kg
[2020-08-18] MEDS ORDERED: ALBUTEROL 2.5 MG/0.5 ML INH ONE (07:15)
[2020-08-18] MEDS ORDERED: LIDOCAINE 4% INJ 5ML AMP INH ONE (07:15)
[2020-08-18] MEDS ORDERED: LR 1,000 ML IV ONE (07:15)
[2020-08-18] MEDS ORDERED: ROCURONIUM BROMIDE 50 MG/5 ML VIAL As Ordered ONE (07:19)
[2020-08-18] MEDS ORDERED: propofoL 200 MG/20 ML VIAL As Ordered ONE (07:19)
[2020-08-18] MEDS ORDERED: LIDOCAINE 2% 100MG/5ML SDV (FOR ANES.) As Ordered ONE (07:19)
[2020-08-18] MEDS ORDERED: EPINEPHrine 1MG/10ML SYRINGE 1.5IN As Ordered ONE (07:20)
[2020-08-18] MEDS ORDERED: LIDOCAINE VISCOUS 2% SOLN 15ML UDC As Ordered ONE (07:20)
[2020-08-18] MEDS ORDERED: PHENYLEPHRINE 0.5% NASAL SPRAY 15 ML As Ordered ONE (07:20)
[2020-08-18] MEDS ORDERED: ACETYLCYSTEINE 20% 30 ML VIAL As Ordered ONE (07:20)
[2020-08-18] MEDS ORDERED: MIDAZOLAM INJ 2MG/2ML VIAL (J2250 PER 1MG) As Ordered ONE (07:20)
[2020-08-18] MEDS ORDERED: fentaNYL 100 MCG/2 ML INJECTION (J3010) As Ordered ONE ×2 (07:20→08:20)
[2020-08-18] MEDS ORDERED: LIDOCAINE 1% SDV 30ML VIAL As Ordered ONE (07:20)
[2020-08-18] MEDS ORDERED: ALBUTEROL SULFATE 2.5 MG/0.5 ML INH NEB SOLN INH ONE (07:30)
[2020-08-18] MEDS: CETACAINE SPRAY 5GM As Ordered ONE ×2 (07:46→07:49)
[2020-08-18] MEDS ORDERED: PHENYLephrine HCL 500 MCG/5 ML (100MCG/ML) SYRINGE (J2370) As Ordered ONE (07:48)
[2020-08-18] MEDS ORDERED: ePHEDrine SULFATE 25 MG/5 ML(5MG/ML) SYRINGE As Ordered ONE (07:48)
[2020-08-18] MEDS ORDERED: ONDANSETRON 4MG/2ML VIAL As Ordered ONE (07:49)
[2020-08-18] MEDS ORDERED: dexameTHASONE 4 MG/ML 1ML VIAL (J1100 PER 1MG) As Ordered ONE (07:49)
[2020-08-18] MEDS ORDERED: SUGAMMADEX SODIUM 500 MG/5 ML VIAL (BRIDION) As Ordered ONE (08:07)
[2020-08-18] MEDS ORDERED: fentaNYL 100 MCG/2 ML INJECTION (J3010) IV PRN (09:45)
[2020-08-18] MEDS ORDERED: LR 1,000 ML IV SCH (09:45)
[2020-08-18] MEDS ORDERED: ONDANSETRON 4MG/2ML VIAL IV PRN (09:45)
[2020-08-18] MEDS ORDERED: oxyCODONE 5MG TAB PO PRN (09:45)
--- NOTE | 2020-08-18 09:47 | RO ---
OPERATIVE NOTE DATE OF OPERATION: 08/18/2020 PREOPERATIVE DIAGNOSIS: Left upper lobe nodule. POSTOPERATIVE DIAGNOSIS: Left upper lobe nodule with no endobronchial disease appreciated. FINDINGS: Hypertrophy of mucous pits and copious mucus scattered throughout the airways with no endobronchial obstructive disease. PROCEDURE PERFORMED: Fiberoptic bronchoscopy followed by robotic-assisted navigational bronchoscopy with performance of cytology brushing, multiple biopsies, bronchoalveolar lavage, and fiducial placement left upper lobe followed by endobronchial ultrasound with aspiration of the subcarinal lymph node. PROCEDURE NOTE: The patient was seen and the procedure explained to the patient as for all the possible complications pertaining thereto including but not limited to bleeding, infection, medication reaction, and lung collapse. An informed consent form was completed and placed on the chart. The patient was placed under general anesthetic, and when the anesthetic had sufficient time to take effect, the fiberoptic bronchoscope was prepared and placed in through the endotracheal tube and into the trachea. The corina was visualized and found to be relatively sharp. There was copious mucus appreciated at this level. The airways of the right and left lung were examined in a subsegmental fashion for any evidence of tumor, ulcer, necrosis, vessel engorgement, or mucosal irregularity. There was mild erythema and hypertrophy of the mucous pits. No endobronchial disease was identified. Once secretions had been removed, the bronchoscope was retracted out through the endotracheal tube, and the robotic-assisted bronchoscope prepared and placed in through the endotracheal tube. Following registration, the navigational program was followed into the left upper lobe anterior segment. The scope was parked approximately 4.5 cm from the center of the lesion identified previously on CT imaging. Using fluoroscopic guidance, radial ultrasound was performed to identify abnormal tissue density. Thereafter using fluoroscopic guidance, transbronchoscopic cytology brushes were obtained, first sent for in room cytopathologic assessment. Multiple brushes were obtained following this. Biopsies were obtained in this same site, the first being sent for cytopathologic evaluation in the room, and subsequent specimens sent to the lab for further analysis. Once sufficient tissue had been obtained, a fiducial marker was placed adjacent to the area of biopsies. Second fiducial marker was placed for stereotactic identification. Thereafter, bronchoalveolar lavage was performed with return of a small specimen. The robotic bronchoscope was then retracted out through the endotracheal tube suctioning any blood or secretions during the removal. Thereafter, an endobronchial ultrasound scope was introduced, and the lymph nodes of the left bronchial tree were assessed. Lymph nodes in the hilar and peribronchial region were found to be less than a centimeter, but the carinal lymph node, however, was felt to be 1.5 cm in dimension and accessible. Best access point was felt to be the right side, and, therefore, the scope was parked adjacent to the corina just into the right main bronchus. Multiple cytology needles were obtained. In room cytopathology indicated an abundance of lymphocytes, and so additional specimens were obtained to allow for cytometry. When sufficient sampling had been performed, the endobronchial ultrasound scope was removed and a standard fiberoptic bronchoscope introduced once again to reassess the airways and lavage free any remaining blood or secretions. The scope was removed out through the endotracheal tube. The patient tolerated the procedure well. There were no apparent complications, and the patient is now being moved to the recovery room. A postprocedural chest x-ray will be performed.
[2020-08-18 10:12] VITALS: BP 140/65
--- NOTE | 2020-08-18 10:16 | REP ---
INDICATION: RA ENB/EBUS. COMPARISON: None. TECHNIQUE: Single fluoroscopically obtained spot radiograph. 306.5 seconds of fluoroscopy time is reported. FINDINGS: A single last image hold fluoroscopically obtained spot radiograph of the left chest document bronchoscopic position and fiducial marker placement. IMPRESSION: Procedural imaging. <Electronically signed by Tarun Niño > 08/18/20 1015
--- NOTE | 2020-08-18 10:27 | REP ---
INDICATION: POST OP IN PACU. COMPARISON: Portable chest dated 07/07/2020. TECHNIQUE: Single AP view of the chest performed portably with the patient sitting FINDINGS: There are 2 tiny metallic densities projected over the left upper lobe is no interval change, possibly tiny surgical clips. There is no pneumothorax or pleural fluid collection on the left or the right. There is a curvilinear density in the left costophrenic angle, unchanged, discoid atelectasis versus parenchymal scar. The lung roque are otherwise clear. Cardiac size is normal. The giovanni, mediastinum, and skeletal structures are unremarkable. The IMPRESSION: No pneumothorax or pleural fluid collection. There are 2 small densities projected over the left upper lobe, possibly surgical clips. Focal discoid atelectasis versus parenchymal scar in the left costophrenic angle. <Electronically signed by Freddy Churchill > 08/18/20 1022
== END 2020-08-18 10:12 | disposition home or self-care (01) ==
LOC: M SDC 06:04
PROVIDERS: ATTEND Internal Medicine Pulmonary Disease
DX: C83.00 Small cell B-cell lymphoma, unspecified site (principal); I10 Essential (primary) hypertension; J44.9 Chronic obstructive pulmonary disease, unspecified; F17.218 Nicotine dependence, cigarettes, with other nicotine-induced disorders; D64.9 Anemia, unspecified; K21.9 Gastro-esophageal reflux disease without esophagitis; E03.9 Hypothyroidism, unspecified; Z79.899 Other long term (current) drug therapy
CPT/HCPCS: 31623; 31624; 31625; 31626; 31652; 71045; 76000; 87070; 87102; 87116; 87205; 87206; 88104; 88173; 88305; J1100; J2250; J2370; J2405; J3010; S2900

== ENCOUNTER 2020-11-25 08:05 | Emergency (ER) | payer MEDICARE, BC ==
[~2020-11-25] VITALS: Ht 172.7 cm; Wt 65.9 kg
[2020-11-25 09:44] LABS: CK-MB VALUE MASS 1.6 NG/ML (<3.6); CPK CREATINE PHOSPHOKINASE 133 U/L (39-308); ETHYL ALCOHOL (ETHANOL) < 0.003 % (0.000-0.010); TROPONIN I < 0.02 NG/ML (< 0.10)
[2020-11-25 09:53] LABS: AMPHETAMINES LEVEL URINE NEGATIVE (NEGATIVE); BARBITURATES URINE NEGATIVE (NEGATIVE); BENZODIAZEPINES URINE NEGATIVE (NEGATIVE); CANNABINOIDS URINE NEGATIVE (NEGATIVE); COCAINE METABOLITE URINE NEGATIVE (NEGATIVE); METHADONE URINE NEGATIVE (NEGATIVE); OPIATES URINE NEGATIVE (NEGATIVE); PHENCYCLIDINE URINE NEGATIVE (NEGATIVE)
[2020-11-25 11:15] VITALS: BP 152/76
--- NOTE | 2020-11-25 16:43 | ECGEPIP ---
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
== END 2020-11-25 12:02 | disposition left against medical advice (07) ==
LOC: M ED 08:05
DX: R55 Syncope and collapse (principal); I45.10 Unspecified right bundle-branch block; Z53.9 Procedure and treatment not carried out, unspecified reason; J44.9 Chronic obstructive pulmonary disease, unspecified; Z87.820 Personal history of traumatic brain injury; F17.200 Nicotine dependence, unspecified, uncomplicated; Z85.6 Personal history of leukemia; Z79.82 Long term (current) use of aspirin; Z79.899 Other long term (current) drug therapy; Z88.1 Allergy status to other antibiotic agents; Z91.040 Latex allergy status

== ENCOUNTER → 2020-11-25 | Outpatient (CLI) | payer MEDICARE, BC ==
--- NOTE | 2020-11-25 08:35 | PFTRPT ---
Site: [facility], [address] [place] [address], [id number] ID: [id number] Name: SILVA CARRION Visit Date: 11/25/2020 Second ID: [id number] Referring Doctor: Porfirio Neri DO Reviewing Doctor: Hipolito Rivera MD Yard Coordinator: Mary Jane SOLO, DAVIS Age: 65 : 1955 Sex: Male Race: Height: 65.25 Inches Weight: 128.00 Lbs BSA: 1.64 Order IDs: [id number] Requested Test(s): <RESP-PFT.PFT B/A> Diagnosis: J44.9 to patient dizziness followed by disorientation and loss of consciousness. Pt. regained and lost consciousness twice and max cart was called. He remained disoriented and dizzy. Pt. was taken to ED for evaluation. Review Status: Not Reviewed Pre-Bronch Post-Bronch Pred Actual %Pred Actual %Chng SPIROMETRY FVC (L) 3.75 3.85 102 FEV1 (L) 2.77 2.61 94 FEV1/FVC (%) 74 68 91 FEF 25% (L/sec) 6.01 5.13 85 FEF 50% (L/sec) 3.76 2.02 53 FEF 75% (L/sec) 1.00 0.56 55 FEF 25-75% (L/sec) 2.18 1.57 71 FEF Max (L/sec) 7.58 6.57 86 FIVC (L) 3.74 FIF 50% (L/sec) 4.53 5.41 119 FIF Max (L/sec) 5.50 MVV (L/min) 115 77 67 Expiratory Time (sec) 6.79 Back Extrap Vol (L) 0.08 Time To FEFmax (sec) 0.081 LUNG VOLUMES SVC (L) 3.93 4.03 102 IC (L) 2.92 2.80 95 ERV (L) 1.01 1.23 121 TGV (L) 3.14 4.06 129 RV (Pleth) (L) 2.13 2.83 132 TLC (Pleth) (L) 6.06 6.86 113 RV/TLC (Pleth) (%) 35 41 117 AIRWAYS RESISTANCE Raw (cmH2O/L/s) 1.45 0.98 67 Gaw (L/s/cmH2O) 1.03 1.02 99 sRaw (cmH2O*s) 4.76 4.18 87 sGaw (1/cmH2O*s) 0.20 0.24 119 BLOOD GASES Hgb (gm/dL) 15.2
== END ==
LOC: M CARPUL 07:28
PROVIDERS: ATTEND Internal Medicine Pulmonary Disease
DX: J44.9 Chronic obstructive pulmonary disease, unspecified (principal)

== ENCOUNTER 2021-04-10 18:38 | Emergency (ER) | payer MEDICARE, BC ==
[~2021-04-10] VITALS: Ht 167.6 cm; Wt 62.8 kg
[2021-04-10 18:38] VITALS: BP 141/62
== END 2021-04-10 20:49 | disposition left against medical advice (07) ==
LOC: M ED 18:38
DX: Z53.21 Procedure and treatment not carried out due to patient leaving prior to being seen by health care provider (principal)

== ENCOUNTER 2021-04-20 10:27 | Inpatient (IN) | payer MEDICARE, BC ==
[2021-04-20] VITALS (12 sets, daily range): BP systolic 107–135; BP diastolic 46–67
[~2021-04-20] VITALS: Ht 167.6 cm; Wt 59.1 kg
[2021-04-20 12:03] LABS: ALBUMIN 2.3 GM/DL (3.2-5.2); BILIRUBIN,TOTAL 0.5 MG/DL (0.2-1.0); CALCIUM LEVEL 8.6 MG/DL (8.8-10.2); CREATININE FOR GFR 1.89 MG/DL (0.70-1.30); GLOMERULAR FILTRATION RATE 38.1 (>49); TOTAL PROTEIN 5.3 GM/DL (6.4-8.2)
[2021-04-20 12:22] LABS: RSV AMPLIFICATION NEGATIVE (NEGATIVE)
[2021-04-20] MEDS ORDERED: ALBU8.5H INH (12:33)
[2021-04-20] MEDS ORDERED: HOME MED LIST COMPLETE! XX SCH (12:35)
[2021-04-20] MEDS ORDERED: ALBUTEROL 90 MCG/ACT 8GM HFA INHALER INH PRN (13:40)
[2021-04-20] MEDS ORDERED: ACETAMINOPHEN 325 MG TAB PO PRN (13:40)
--- NOTE | 2021-04-20 13:43 | HPEPDOC ---
General Date of Admission Apr 20, 2021 at 12:51 Date of Service: Apr 20, 2021 Chief Complaint The patient is a 65-year-old male admitted with a reason for visit of Symptomatic Anemia. History of Present Illness Mr. Shaikh is a 65 year old male with CLL on Imbruvica who presents with symptomatic anemia. About 1 month ago, he started to notice exertional dyspnea and generalized fatigued. His hemoglobin on 03/28/21 was 8.1, but baseline hemoglobin is a round. He continued at home, and symptoms progressively worsened. Some days, he would go back to bed due to his fatigue and lethargy. Some days he would also get lightheaded and dizzy. He denies any melena, hematochezia, hematuria, or hemoptysis. He denies any nausea. About 4 days ago, he noted that he felt phlegm in his throat. He would have trouble coughing up the phlegm. Otherwise, no fever. Today, he was going for his routine lab work w hen he was found to have a hemoglobin of 5.4. He was told to go to the ER. While in the ED, his vital signs are stable. He appeared comfortable and completing sentences without difficulty. He tells me that he has had blood transfusions in the past. Patient will be admitted for severe symptomatic anemia secondary to chemotherapy. Home Medications Scheduled Aspirin (Ecotrin) 81 Mg Tablet.dr, 81 MG PO DAILY, (Reported) Cholecalciferol (Vitamin D3) (Vitamin D3) 1,000 Unit Tablet, 1,000 UNITS PO DAILY, (Reported) Ibrutinib (Imbruvica) 140 Mg Capsule, 280 MG PO daily Levothyroxine Sodium (Levothyroxine Sodium) 137 Mcg Tablet, 137 MCG PO DAILY, (Reported) Scheduled PRN Acetaminophen (Acetaminophen) 325 Mg Tablet, 650 MG PO Q4H PRN for PAIN, (Reported) Albuterol Sulfate (Albuterol Sulfate Hfa) 8.5 Gm Hfa.aer.ad, 2 PUFFS INH Q4H PRN for SOB/COUGH, (Reported) Allergies Coded Allergies: ciprofloxacin (Verified Allergy, Intermediate, SWELLING, 08/17/20) latex (Verified Allergy, Intermediate, RASH, 08/17/20) Past Medical History Medical History 1. Back injury s/p back surgery complicated with neuropathy 2. Hyperlipidemia 3. Hypertension 4. Hypothyroidism 5. Urinary incontinence 6. Superficial bladder cancer 7. Penile prosthesis 8. COPD 9. Lung nodules 10. Chronic lymphocytic leukemia Surgical History 1. Back surgery x2 with grafting from bilateral hips 2. Left ankle surgery 3. Umbilical hernia repair 4. Multiple cystoscopy Family History Father: , history of osteosarcoma Mother: , history of lung cancer Social History * Smoker: current smoker Alcohol: occationally (Beer once a week or every other week) Drugs: denies A-FIB/CHADSVASC A-FIB History Current/History of A-Fib/PAF?: No Review of Systems Constitutional: Reports: Chills, Fatigue, Lethargy; Denies: Fever Eyes: Denies: Vision change ENT: Reports: Sore Throat (From frequent coughing) Skin: Reports: Rash (On abdomen from Imbruvica) Pulmonary: Reports: Dyspnea (with exertion), Cough (Started 4 days ago from congestion) Cardiovascular: Denies: Chest Pain Gastrointestinal: Denies: Abdominal Pain, Diarrhea, Constipation, Melena, Hematochezia Genitourinary: Denies: Dysuria, Hematuria Hematologic: Denies: Bruising Neurological: Reports: Other Symptoms (Paresthesias in feet from Imbruvica) Psych: Denies: Anxiety, Depression Physical Examination General Exam: Positive: Alert, Cooperative Eye Exam: Positive: EOMI; Negative: Sclera icteric ENT Exam: Positive: Other ENT (Oral thrush) Neck Exam: Negative: Supple Chest Exam: Positive: Clear to auscultation Heart Exam: Positive: Rate Normal, Regular Rhythm Abdomen Exam: Positive: Normal bowel sounds, Soft; Negative: Tenderness Extremity Exam: Negative: Edema Skin Exam: Positive: Rash (Left abdomen going around towards back) Neuro Exam: Positive: Normal Speech, Cranial Nerves 3-12 NL Psych Exam: Positive: Mental status NL, Mood NL Vital Signs Vital Signs Date Time Temp Pulse Resp B/P (MAP) Pulse Ox O2 Delivery O2 Flow Rate FiO2 04/20/21 11:19 Room Air 04/20/21 10:33 99.2 83 20 158/70 (99) 96 Laboratory Data Labs 24H Laboratory Tests 2 04/20/21 11:05: Anion Gap 9, Glomerular Filtration Rate 38.1L, Calcium Level 8.6L, Total Bilirubin 0.5, Aspartate Amino Transf (AST/SGOT) 12, Alanine Aminotransferase (ALT/SGPT) 14, Alkaline Phosphatase 87, Total Protein 5.3L, Albumin 2.3L, Albumin/Globulin Ratio 0.8 04/20/21 11:39: Coronavirus (COVID-19)(PCR) NEGATIVE, Influenza Type A (RT-PCR) NEGATIVE, Influenza Type B (RT-PCR) NEGATIVE, Respiratory Syncytial Virus (PCR) NEGATIVE CBC/BMP Laboratory Tests 04/20/21 11:05 Assessment/Plan Mr. Shaikh is a 65 year old male with CLL on Imbruvica who presents with symptomatic anemia. Patient's exertional dyspnea and dizziness is most likely from his anemia. The anemia is most likely due to Imbruvica. Dr. Hernandez wrote a note on 04/20/21 recommending that patient stop Ibruvica and follow up with Dr. Roldan in 5 to 7 days with labs. Patient will be transfused with 2u of pRBC with recheck. Plan / VTE VTE Prophylaxis Ordered?: Yes Plan Plan 1. Symptomatic anemia secondary to chemotherapy -Suspecting Imbruvica to be the cause -Baseline hemoglobin around 9 to 10. Hemoglobin on admission is 5.4 -Transfusing 2u pRBC and rechecking afterwards. Patient may need more blood afterwards -Hold Imbruvica. Patient to follow up outpatient with oncology outpatient in 5 to 7 days 2. CLL -WBC improved, but still elevated -Patient was on Imbruvica, but being held due to symptomatic anemia -Patient will need to follow up with oncology outpatient 3. CKD stage 3 -Baseline creatinine 1.6 -Creatine on admission is slightly elevated at 1.89, may be due to anemia -Transfusing blood -Monitor creatinine 4. Hypothyroidism -Continue Levothyroxine 5. COPD -Continue albuterol as needed 6. Vitamin D deficiency -Continue vitamin D supplementation 7. DVT ppx -SCD and TEDs -No chemical ppx due to severe anemia Disposition: Pending improvement in H&H ZAID SHEN DO Apr 20, 2021 13:43
--- NOTE | 2021-04-20 14:22 | REP ---
INDICATION: sob. COMPARISON: None. TECHNIQUE: AP view FINDINGS: Diffuse infiltrates throughout the right lung and in the left lower lung. Postoperative change left upper lobe. Heart not enlarged. Small left pleural effusion. IMPRESSION: Diffuse infiltrates throughout the right lung and in the left lower lobe. <Electronically signed by Rell Moon > 04/20/21 [id number]
[2021-04-20 15:05] LABS: BASO % 0.1 % (0.0-1.0); EOS % 0.1 % (0.0-3.0); LYMPH # 14.1 10^3/uL (1.5-5.0); LYMPH % 88.8 % (24.0-44.0); MEAN CORPUSCULAR HEMOGLOBIN 31.3 pg (27.0-33.0); MEAN CORPUSCULAR HGB CONC 29.6 g/dl (32.0-36.5); MEAN CORPUSCULAR VOLUME 105.7 fl (80.0-96.0); MONO # 1.2 10^3/uL (0.0-0.8); MONO % 7.3 % (2.0-8.0); NEUTROPHILS % 3.6 % (36.0-66.0); RED BLOOD COUNT 1.76 10^6/uL (4.30-6.10)
[2021-04-20 15:10] LABS: HEMATOCRIT 18.6 % (42.0-52.0); NEUTROPHILS # 0.6 10^3/uL (1.5-8.5); PLATELET COUNT, AUTOMATED 93 10^3/uL (150-450); WHITE BLOOD COUNT 15.8 10^3/uL (4.0-10.0)
[2021-04-20 15:12] LABS: HEMOGLOBIN 5.5 g/dl (13.5-17.5)
[2021-04-20 15:14] LABS: LDH LACTATE DEHYDROGENASE 169 U/L (87-241)
[2021-04-20] MEDS: VANICREAM MOISTURIZING SKIN CREAM 113GM TUBE TOP SCH ×2 (15:30→20:10)
[2021-04-20] MEDS: guaiFENesin ER 600 MG TAB PO SCH ×2 (15:30→20:10)
[2021-04-20] MEDS ORDERED: HYDROCORTISONE 100 MG/2 ML VIAL (J1720 PER 1) IV ONE (15:50)
[2021-04-20 16:07] LABS: FERRITIN 379 NG/ML (26-388); IRON (FE) 12 UG/DL (65-175); PERCENT SATURATION 5.4 % (19.7-50.0); TOTAL IRON BINDING CAPACITY 221 UG/DL (250-450)
[2021-04-20 16:10] LABS: VITAMIN B12 LEVEL > 2000 PG/ML (247-911)
[2021-04-20] MEDS: NYSTATIN 500,000 U/5 ML SUSP UDC SS SCH ×3 (16:58→20:10)
[2021-04-20] MEDS: NS 1,000 ML IV SCH (17:54)
[2021-04-20 23:32] LABS: HEMATOCRIT 24.7 % (42.0-52.0)
[2021-04-20 23:34] LABS: HEMOGLOBIN 7.8 g/dl (13.5-17.5)
[2021-04-21] VITALS (7 sets, daily range): BP systolic 112–128; BP diastolic 51–63
[2021-04-21] MEDS ORDERED: LEVOTHYROXINE 137MCG TABLET (0.137MG) PO SCH (06:00)
[2021-04-21 06:01] LABS: BASO # 0.1 10^3/uL (0.0-0.2); BASO % 0.2 % (0.0-1.0); HEMATOCRIT 26.2 % (42.0-52.0); HEMOGLOBIN 8.2 g/dl (13.5-17.5); LYMPH # 19.3 10^3/uL (1.5-5.0); LYMPH % 90.5 % (24.0-44.0); MEAN CORPUSCULAR HEMOGLOBIN 30.8 pg (27.0-33.0); MEAN CORPUSCULAR HGB CONC 31.3 g/dl (32.0-36.5); MEAN CORPUSCULAR VOLUME 98.5 fl (80.0-96.0); MONO # 0.9 10^3/uL (0.0-0.8); MONO % 4.3 % (2.0-8.0); NEUTROPHILS % 4.9 % (36.0-66.0); RED BLOOD COUNT 2.66 10^6/uL (4.30-6.10)
[2021-04-21 06:04] LABS: PLATELET COUNT, AUTOMATED 88 10^3/uL (150-450); WHITE BLOOD COUNT 21.3 10^3/uL (4.0-10.0)
[2021-04-21 06:25] LABS: CALCIUM LEVEL 8.3 MG/DL (8.8-10.2); CREATININE FOR GFR 1.78 MG/DL (0.70-1.30); GLOMERULAR FILTRATION RATE 40.8 (>49)
--- NOTE | 2021-04-21 06:31 | ECGEPIP ---
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
[2021-04-21] MEDS ORDERED: HYDROCORTISONE 100 MG/2 ML VIAL (J1720 PER 1) IV ONE (08:30)
[2021-04-21] MEDS ORDERED: VITAMIN D 1,000 INTERNATIONAL UNITS TABLET PO SCH (09:00)
[2021-04-21] MEDS ORDERED: ASPIRIN 81MG ENTERIC TABLET PO SCH (09:00)
[2021-04-21] MEDS: NYSTATIN 500,000 U/5 ML SUSP UDC SS SCH ×2 (10:30→13:56)
[2021-04-21] MEDS: guaiFENesin ER 600 MG TAB PO SCH (10:30)
[2021-04-21] MEDS: VANICREAM MOISTURIZING SKIN CREAM 113GM TUBE TOP SCH (10:30)
[2021-04-21 12:17] LABS: INR 1.12; PROTHROMBIN TIME 14.9 SECONDS (12.7-14.5)
[2021-04-21 12:18] LABS: PARTIAL THROMBOPLASTIN TIME 33.3 SECONDS (25.9-37.0)
[2021-04-21] MEDS: NS 1,000 ML IV SCH (12:31)
--- NOTE | 2021-04-21 23:23 | DS.PDOC ---
Discharge Summary General Date of Admission Apr 20, 2021 at 12:51 Date of Discharge Apr 21, 2021 Discharge Summary PROCEDURES PERFORMED DURING STAY: None ADMITTING DIAGNOSES: 1. Symptomatic anemia secondary to chemotherapy (Imbruvica) 2. CLL being treated by Imbruvica 3. CKD stage 3 4. Hypothyroidism 5. COPD 6. Vitamin D deficiency DISCHARGE DIAGNOSES: 1. Symptomatic anemia secondary to chemotherapy (Imbruvica) 2. CLL being treated by Imbruvica 3. CKD stage 3 4. Hypothyroidism 5. COPD 6. Vitamin D deficiency 7. Febrile nonhemolytic transfusion reaction COMPLICATIONS/CHIEF COMPLAINT: Symptomatic Anemia. HISTORY OF PRESENT ILLNESS: Mr. Shaikh is a 65 year old male with CLL on Imbruvica who presents with symptomatic anemia. About 1 month ago, he started to notice exertional dyspnea and generalized fatigued. His hemoglobin on 03/28/21 was 8.1, but baseline hemoglobin is a round. He continued at home, and symptoms progressively worsened. Some days, he would go back to bed due to his fatigue and lethargy. Some days he would also get lightheaded and dizzy. He denies any melena, hematochezia, hematuria, or hemoptysis. He denies any nausea. About 4 days ago, he noted that he felt phlegm in his throat. He would have trouble coughing up the phlegm. Otherwise, no fever. Today, he was going for his routine lab work when he was found to have a hemoglobin of 5.4. He was told to go to the ER. While in the ED, his vital signs are stable. He appeared comfortable and completing sentences without difficulty. He tells me that he has had blood transfusions in the past. Patient will be admitted for severe symptomatic anemia secondary to chemotherapy. HOSPITAL COURSE: About 20 minutes into first transfusion, patient had a transfusion reaction. Patient's temperature increased from 97 to 99. Transfusion was stopped and bag was sent up to blood bank to be check. Spoke with oncology. Recommended 200mg Hydrocortisone prior to transfusion. Suspecting to be febrile, non-hemolytic transfusion reaction. Spoke with blood bank after they evaluated the bag. Everything was okay. Direct Alexa was negative. Hemoglobin was unchanged and LDH was within normal limits. Unlikely to be a hemolytic reaction, okay to resume blood transfusion. Patient received 2 units, and hemoglobin responded appropriately. The following morning, patient felt great and felt ready for home. Spoke with oncology who recommended giving one more unit of blood prior to discharge as was as discontinuing Imbruvica until patient is seen in office by oncology. Patient received the 3rd unit of blood and was discharged home. DISCHARGE MEDICATIONS: Please see below. ALLERGIES: Please see below. PHYSICAL EXAMINATION ON DISCHARGE: VITAL SIGNS: Please see below. GENERAL: Comfortable, in no apparent distress. HEENT: Head normocephalic/atraumatic, EOMI, sclera clear. NECK: Supple. RESPIRATORY: Lungs clear to auscultation bilaterally, no rales, wheeze or rhonchi. CARDIOVASCULAR: Regular rate and rhythm. ABDOMEN: Soft, nontender, no guarding or rebound tenderness. Normal bowel sounds. MUSCLE SKELETAL: Muscle strength 5/5 in all extremities. NEUROLOGICAL: CN 312 grossly intact, no focal deficits noted. PSYCHOLOGICAL: Normal mood and affect LABORATORY DATA: Please see below. PROGNOSIS: Good ACTIVITY: As tolerated. DIET: As tolerated DISCHARGE PLAN: Home DISPOSITION: 01 Home, Self-Care. DISCHARGE INSTRUCTIONS: 1. Follow up with PCP in 1 week 2. Follow up with oncology, Dr. Roldan in 5 to 7 days 3. Have CBC done in 3 to 5 days and have results faxed to Dr. Roldan and PCP ITEMS TO FOLLOWUP ON ON OUTPATIENT: 1. Hemoglobin DISCHARGE CONDITION: Stable Total time spent on discharge planning, discharged summary, and medication reconciliation: 35 minutes Vital Signs/I&Os Vital Signs Date Time Temp Pulse Resp B/P (MAP) Pulse Ox O2 Delivery O2 Flow Rate FiO2 04/21/21 14:00 97.4 63 18 128/60 (82) 94 Room Air 04/21/21 09:25 0.5 I&O- Last 24 Hours up to 6 AM 04/21/21 06:00 Intake Total 1065 ml Output Total 325 ml Balance 740 ml Laboratory Data Labs 24H Laboratory Tests 2 04/21/21 05:26: Immature Granulocyte % (Auto) 0.1, Neutrophils (%) (Auto) 4.9L, Lymphocytes (%) (Auto) 90.5H, Monocytes (%) (Auto) 4.3, Eosinophils (%) (Auto) 0.0, Basophils (%) (Auto) 0.2, Neutrophils # (Auto) 1.0L, Lymphocytes # (Auto) 19.3H, Monocytes # (Auto) 0.9H, Eosinophils # (Auto) 0.0, Basophils # (Auto) 0.1, Nucleated Red Blood Cells % (auto) 0.1H, Anion Gap 8, Glomerular Filtration Rate 40.8L, Calcium Level 8.3L 04/21/21 11:49: Prothrombin Time 14.9H, Prothromb Time International Ratio 1.12, Activated Partial Thromboplast Time 33.3 CBC/BMP Laboratory Tests 04/21/21 05:26 Microbiology Microbiology 04/20/21 Blood Culture, Received Pending 04/20/21 Blood Culture, Received Pending Discharge Medications Scheduled Aspirin (Ecotrin) 81 Mg Tablet.dr, 81 MG PO DAILY, (Reported) Cholecalciferol (Vitamin D3) (Vitamin D3) 1,000 Unit Tablet, 1,000 UNITS PO DAILY, (Reported) Levothyroxine Sodium (Levothyroxine Sodium) 137 Mcg Tablet, 137 MCG PO DAILY, (Reported) Scheduled PRN Acetaminophen (Acetaminophen) 325 Mg Tablet, 650 MG PO Q4H PRN for PAIN, (Reported) Albuterol Sulfate (Albuterol Sulfate Hfa) 8.5 Gm Hfa.aer.ad, 2 PUFFS INH Q4H PRN for SOB/COUGH, (Reported) Allergies Coded Allergies: ciprofloxacin (Verified Allergy, Intermediate, SWELLING, 08/17/20) latex (Verified Allergy, Intermediate, RASH, 08/17/20) ZAID SHEN DO Apr 21, 2021 23:23
== END 2021-04-21 14:35 | disposition home or self-care (01) | DRG 812 ==
LOC: M ED 10:27 → M ED INP 12:51 → ENRESERV 14:10 → M MSPAV 14:59
PROVIDERS: ADMIT Internal Medicine; ATTEND Internal Medicine
PROC: 30233N1 Transfusion of Nonautologous Red Blood Cells into Peripheral Vein, Percutaneous Approach (ICD-10-PCS; principal; 2021-04-20)
DX: D64.81 Anemia due to antineoplastic chemotherapy (principal); C91.10 Chronic lymphocytic leukemia of B-cell type not having achieved remission; Z92.21 Personal history of antineoplastic chemotherapy; E55.9 Vitamin D deficiency, unspecified; J44.9 Chronic obstructive pulmonary disease, unspecified; E03.9 Hypothyroidism, unspecified; N18.30 Chronic kidney disease, stage 3 unspecified; R50.84 Febrile nonhemolytic transfusion reaction; Z91.040 Latex allergy status; Z88.8 Allergy status to other drugs, medicaments and biological substances; Z79.82 Long term (current) use of aspirin; Z79.899 Other long term (current) drug therapy; E78.5 Hyperlipidemia, unspecified; I12.9 Hypertensive chronic kidney disease with stage 1 through stage 4 chronic kidney disease, or unspecified chronic kidney disease

== ENCOUNTER → 2021-04-26 | Outpatient (CLI) | payer MEDICARE, BC ==
[~2021-04-26] MED LIST changes: +ALBU8.5H INH
[2021-04-26 09:58] LABS: HEMATOCRIT 28.5 % (42.0-52.0); HEMOGLOBIN 8.9 g/dl (13.5-17.5); MEAN CORPUSCULAR HEMOGLOBIN 29.5 pg (27.0-33.0); MEAN CORPUSCULAR HGB CONC 31.2 g/dl (32.0-36.5); MEAN CORPUSCULAR VOLUME 94.4 fl (80.0-96.0); RED BLOOD COUNT 3.02 10^6/uL (4.30-6.10); WHITE BLOOD COUNT 15.1 10^3/uL (4.0-10.0)
[2021-04-26 10:00] LABS: PLATELET COUNT, AUTOMATED 67 10^3/uL (150-450)
== END ==
LOC: M LAB 08:44
PROVIDERS: ATTEND Internal Medicine
DX: D64.81 Anemia due to antineoplastic chemotherapy (principal)